=== PATIENT | male | born 1950 | race Caucasian/White ===

== ENCOUNTER 2022-11-28 11:54 | Outpatient (OUT) | payer MEDICARE, SELFPAY ==
[2022-11-28 13:23] LABS: Prostate Specific Antigen Dx 3.07 ng/mL (<=4.00)
[2022-11-29 04:08] LABS: Testosterone 272 ng/dL (264-916)
== END 2022-11-28 11:55 | disposition home or self-care (01) ==
LOC: LAB 11:54
PROVIDERS: PCP Internal Medicine; Visit Provider Urology
DX: N40.1 Benign prostatic hyperplasia with lower urinary tract symptoms (principal); E29.1 Testicular hypofunction; N52.9 Male erectile dysfunction, unspecified
CPT/HCPCS: 36415; 84153; 84403

== ENCOUNTER 2023-10-02 10:21 | Outpatient (OUT) | payer MEDICARE, SELFPAY ==
[2023-10-02 10:40] LABS: Basophils Percent Auto 0.6 % (0.2-2.0); Eosinophils Absolute Auto 0.1 10^3/uL (0.0-0.7); Hematocrit 47.1 % (42.0-54.0); Hemoglobin 16.1 g/dL (14.0-18.0); Immature Granulocytes Abs Auto 0.01 10^3/uL (0.00-0.03); Immature Granulocytes Pct Auto 0.2 % (0.0-0.5); Lymphocytes Absolute Auto 1.8 10^3/uL (1.2-3.8); Lymphocytes Percent Auto 27.2 % (20.5-60.0); Mean Corpuscular HGB Conc 34.2 g/dL (29.9-35.2); Mean Corpuscular Hemoglobin 29.9 pg (25.9-34.0); Mean Corpuscular Volume 87.4 fL (80.0-94.0); Mean Platelet Volume 9.1 fL (9.5-13.5); Monocytes Absolute Auto 0.6 10^3/uL (0.3-0.8); Monocytes Percent Auto 8.5 % (1.7-12.0); Neutrophils Percent Auto 61.5 % (43.0-75.0); Platelet Count 232 10^3/uL (150-450); Red Blood Count 5.39 10^6/uL (4.70-6.10); Red Cell Distribution Width 13.1 % (11.0-15.0); White Blood Count 6.5 10^3/uL (4.0-11.0)
[2023-10-02 11:12] LABS: Microalbumin Urine Random 3.5 mg/dL (<=30.0)
[2023-10-02 11:15] LABS: Alanine Aminotransferase 52 U/L (16-63); Albumin Level 3.9 g/dL (3.4-5.0); Alkaline Phosphatase 69 U/L (46-116); Anion Gap 12.1; Aspartate Amino Transferase 31 U/L (15-37); Calcium 8.8 mg/dL (8.5-10.1); Carbon Dioxide 29.6 mmol/L (21.0-32.0); Chloride 102 mmol/L (98-107); Chol HDL Ratio 2.9; Cholesterol 138 mg/dL (<=200); Estimated GFR (African America >60 (>=60); Estimated GFR (Non-African Ame >60 (>=60); Globulin 3.8 g/dL; Glucose 140 mg/dL (74-106); HDL Cholesterol 48 mg/dL (40-60); LDL Cholesterol Calculated 61.4 mg/dL; Potassium 3.7 mmol/L (3.5-5.1); Sodium 140 mmol/L (136-145); Total Protein 7.7 g/dL (6.4-8.2); Triglycerides 143 mg/dL (<=150); VLDL CHOLESTEROL 28.6 mg/dL
[2023-10-02 11:28] LABS: Estimated Average Glucose 137 mg/dL; Glycohemoglobin A1C 6.4 % (4.5-6.2)
== END 2023-10-02 10:22 | disposition home or self-care (01) ==
LOC: LAB 10:21
PROVIDERS: PCP Internal Medicine; Visit Provider Internal Medicine
DX: E11.65 Type 2 diabetes mellitus with hyperglycemia (principal); I10 Essential (primary) hypertension; E78.00 Pure hypercholesterolemia, unspecified
CPT/HCPCS: 36415; 80053; 80061; 82043; 83036; 85025

== ENCOUNTER 2024-01-29 15:00 | Outpatient (OUT) | payer MEDICARE, SELFPAY ==
--- OUTSIDE RECORDS SUMMARY | 2024-01-29 15:26 | XMS_ITS | CCD ---
Author Organization [facility] CliniSyal Care Team Providers Care Driver Courier Name Role Phone DR SAL SINCLAIR Primary Care Unavailable YUKO, DR SALAZAR Admitting Unavailable CORTEZ, DR SALAZAR Attending Unavailable CORTEZ, DR SALAZAR Consulting Unavailable JR, DR GR Primary Care Unavailable JR, DR GR Admitting Unavailable JR, DR GR Attending Unavailable JR, DR GR Consulting Unavailable JR, DR GR Primary Care Unavailable JR, DR GR Admitting Unavailable BALL, DR GR Attending Unavailable BALL, DR GR Consulting Unavailable TITUS, DR JUANITO Mccollum Consulting Unavailable SAL SINCLAIR Primary Care Physician Sal Sinclair VENKATESH MALONE Admitting Unavailable VENKATESH MALONE Attending Unavailable VENKATESH MALONE Referring Unavailable SAL SINCLAIR Primary Care Unavailable HACHAITANYARVENKATESH Attending Unavailable HADHAVAL, VENKATESH Referring Unavailable JR, SAL Cooley Primary Care Unavailable Wyatt CORTEZ Attending Unavailable Wyatt CORTEZ Attending Unavailable Allergies Allergy Classification Reported Allergen(s) Allergy Type Date of Onset Reaction(s) Facility (1 source) No Known Medication Allergies; Translations: [No Known Medication Allergies] Propensity to adverse reactions (disorder) [facility] Repository Medications Current Medications Medication Drug Class(es) Dates Sig (Normalized) Sig (Original) amLODIPine 10 mg / benazepril hydrochloride 40 mg oral capsule (6 sources) Dihydropyridine Calcium Channel Annika, Angiotensin Converting Enzyme Inhibitor Start: 10-02-2023 take 1 capsule by mouth once daily Amlodipine-Benaz epril Active 1 CAP PO Daily October 02, 2023 9:48am Start: 06-23-2023 End: 10-02-2023 take 1 capsule by mouth once daily Amlodipine-Benazepril Discontinued 0 .ROUTE .COMPLEX 90 June 23, 2023 1:24pm October 02, 2023 9:49am TAKE 1 CAPSULE BY MOUTH EVERY DAY Start: 06-23-2023 End: 06-23-2023 take 1 capsule by mouth once daily Amlodipine-Benazepril Discontinued 1 CAP PO Daily June 23, 2023 12:00am June 23, 2023 1:24pm Start: 12-11-2020 take 1 capsule by mo nhh once daily amLODIPine-benazepril 10mg-40 mg Cap cap(s), Oral, Daily, Refill(s) 0 Start Date: 12/11/20 Status: Ordered aspirin 81 mg delayed release oral tablet (3 sources) Platelet Aggregation Inhibitor, Nonsteroidal Anti-inflammatory Drug Start: 10-02-2023 take 81 mg by mouth once daily Aspirin Active 81 MG PO Daily October 02, 2023 12:00am Start: 03-05-2019 take 1 mg by mouth once daily aspirin 81 mg oral tablet mg tab(s), Oral, Daily, Refills(s) 0 Start Date: 03/05/19 Status: Ordered atorvastatin 10 mg oral tablet (4 sources) HMG-CoA Reductase Inhibitor Start: 07-08-2023 take 10 mg by mouth once daily Atorvastatin Active 10 MG PO Daily July 08, 2023 12:00am Start: 03-05-2019 take 10 mg by mouth once daily atorvastatin 10 mg, Oral, Daily, Refills(s) 0 Start Date: 03/05/19 Status: Ordered hydroCHLOROthiazide 25 mg oral tablet (4 sources) Thiazide Diuretic Start: 07-08-2023 take 25 mg by mouth once daily Hydrochlorothiazide Active 25 MG PO Daily July 08, 2023 12:00am Start: 12-06-2019 take 1 mg by mouth o nce daily hydrochlorothiazide 25 mg Tab mg tab(s), Oral, Daily, Refills(s) 0 Start Date: 12/06/19 Status: Ordered ketoconazole 20 mg/ml medicated shampoo (2 sources) Azole Antifungal Start: 10-02-2023 End: 10-02-2023 Ketoconazole Active 1 APPLIC TOPICAL 3 Times a week 120 October 02, 2023 10:11am metFORMIN hydrochloride 500 mg oral tablet (5 sources) Biguanide Start: 07-08-2023 take 1 tablet by mouth once daily Metformin Active 0 .ROUTE .COMPLEX 90 July 08, 2023 6:04pm TAKE 1 TABLET BY MOUTH EVERY DAY Start: 07-08-2023 End: 07-08-2023 take 500 mg by mouth once daily Metformin Discontinued 500 MG PO Daily July 08, 2023 12:00am July 08, 2023 6:05pm Start: 03-05-2019 metformin 500 mg, Oral, Refills(s) 0 Start Date: 03/05/19 Status: Ordered Completed/Discontinued Medications Medication Drug Class(es) Dates Sig (Normalized) Sig (Original) latanoprost 0.05 mg/ml ophthalmic solution (1 source) Prostaglandin Analog Start: 10-02-2023 End: 10-02-2023 take 1 drop(s) into the eye(s) once daily Latanoprost Discontinued 1 DROPS EYE-BOTH Daily October 02, 2023 12:00am October 02, 2023 9:49am predniSONE 20 mg oral tablet (2 sources) Start: 07-08-2023 End: 10-02-2023 Prednisone Discontinued 20 MG PO July 08, 2023 12:00am October 02, 2023 9:48am 1 tablet Orally tid w/ food x 3 days, then bid w/ food x 3 days, then qd w/ food x 3 days Start: 09-06-2022 predniSONE 20 MG 1 tablet Orally tid w/ food x 3 days, then bid w/ food x 3 days, then qd w/ food x 3 days for 9 days August, Active sildenafil 20 mg oral tablet (2 sources) Phosphodiesterase 5 Inhibitor Start: 02-10-2023 sildenafil 20 mg ora l tablet 20 mg = 1 tab(s), Oral, As Directed, Take 3-5 tablets by mouth prior to sexual relations, # 90 cap(s), Refills(s) 3, Pharmacy: [id number], 178, cm, 02/10/23 12:36:00 EDT, Height/Length Dosing, 143, kg, 02/10/23 12:36:00 EDT, Weight Dosing Start Date: 02/10/23 Status: Ordered Start: 12-21-2021 sildenafil 20 mg oral tablet 20 mg = 1 tab(s), Oral, As Directed, Take 3-5 tablets by mouth prior to sexual relations, # 90 cap(s), Refills(s) 3, Pharmacy: [id number] Start Date: 12/21/21 Status: Ordered Problems Active Problems Problem Classification Problem Date Documented Date Episodic/Chronic Allergic reactions (1 source) Allergic contact dermatitis due to plants, except food; Translations: [Poison edgardo] Episodic Blindness and vision defects (5 sources) Other visual disturbances; Translations: [Visual disturbance] Onset: 11-01-2021 Episodic Diabetes mellitus with complications (11 sources) Type 2 diabetes mellitus with hyperglycemia; Translations: [Type 2 diabetes mellitus] Onset: 12-28-2020 Chronic Diabetes mellitus without complication (2 sources) Diabetes mellitus 03-05-2019 Chronic Disorders of lipid metabolism (5 sources) Pure hypercholesterolemia , unspecified; Translations: [Pure hypercholesterolemia ] Onset: 01-13-2021 Chronic Essential hypertension (7 sources) Essential (primary) hypertension; Translations: [Hypertensive disorder] Onset: 01-13-2021 03-05-2019 Chronic Genitourinary symptoms and ill-defined conditions (2 sources) Nocturia 03-15-2019 Episodic Headache; including migraine (1 source) Headache; including migraine; Translations: [HEADACHE UNSPECIFIED] Onset: 11-06-2021 Hyperplasia of prostate (8 sources) Benign prostatic hyperplasia with lower urinary tract symptoms; Translations: [Benign prostatic hypertrophy with outflow obstruction] Onset: 12-12-2021 Chronic Inflammatory conditions of male genital organs (2 sources) Chronic prostatitis 03-15-2019 Chronic Mycoses (1 source) Candidiasis of skin and nails; Translations: [Candidiasis of skin and nail] Episodic Other aftercare (2 sources) Other watermaster (current) drug therapy; Translations: [OTH CUSTODIAL CURRENT DRUG THERAPY] Onset: 01-13-2021 Episodic Other and unspecified benign neoplasm (1 source) Polyp of colon; Translations: [Polyp of colon] Onset: 09-16-2023 Episodic Other and unspecified benign neoplasm (1 source) Tubular adenoma Onset: 09-16-2023 Episodic Other diseases of veins and lymphatics (1 source) Peripheral venous insufficiency; Translations: [Venous insufficiency (chronic) (peripheral)] Episodic Other diseases of veins and lymphatics (2 sources) Venous insufficiency (chronic) (peripheral); Translations: [Venous (peripheral) insufficiency, unspecified] Episodic Other diseases of veins and lymphatics (1 source) Venous insufficiency of leg; Translations: [Venous insufficiency (chronic) (peripheral)] 09-30-2023 Episodic Other endocrine disorders (1 source) Testicular hypofunction; Translations: [TESTICULAR HYPOFUNCTION] Onset: 12-13-2021 Chronic Other endocrine disorders (2 sources) Testicular hypofunction; Translations: [Testicular hypofunction] Onset: 12-21-2021 Chronic Other endocrine disorders (2 sources) Male hypogonadism 03-15-2019 Chronic Other male genital disorders (3 sources) Male erectile dysfunction, unspecified; Translations: [Erectile dysfunction] Onset: 12-13-2021 Chronic Other male genital disorders (2 sources) Impotence 12-06-2019 Chronic Other nervous system disorders (2 sources) Unsteadiness on feet; Translations: [Unsteady] Onset: 11-06-2021 Episodic Other nutritional; endocrine; and metabolic disorders (1 source) Body mass index 40+ - severely obese; Translations: [Body mass index (BMI) 40.0-44.9, adult] Chronic Other nutritional; endocrine; and metabolic disorders (1 source) Severe obesity; Translations: [Morbid (severe) obesity due to excess calories] Chronic Other nutritional; endocrine; and metabolic disorders (1 source) Morbid (severe) obesity due to excess calories Chronic Other nutritional; endocrine; and metabolic disorders (1 source) Body mass index (BMI) 40.0-44.9, adult Chronic Other screening for suspected conditions (not mental disorders or infectious disease) (2 sources) Encounter for screening for malignant neoplasm of colon; Translations: [Encounter for screening for malignant neoplasm of prostate] Episodic Unclassified (2 sources) Drug therapy finding 03-05-2019 Past or Other Problems Problem Classification Problem Date Documented Da te Episodic/Chronic Unclassified (1 source) Acute headache; Translations: [Acute nonintractable headache, unspecified headache type] Results Test Name Value Interpretation Reference Range Facility Surgical Pathologyon 024 Surgical Pathology Normal [facility] Comment on above: Result Comment: [facility] [address] [place] [address] Surgical Pathology Consultation Patient Name:DOMINGO SANTOSB:1950 (Age: 73)Gender:MTaken:4Reported:4Physician(s):Celsa Malone MD ([phone])Copy To:[facility] CenterAccession #:[id number]. Rec. #:[id number]: #[id number] Final Pathologic Diagnosis 1. Colon, cecum, polypectomy: Fragments of tubular adenoma. 2. Ascending colon, polypectomy: Fragments of tubular adenoma. 3. Transverse colon, polypectomy: Fragments of tubular adenoma. 4. Descending colon, polypectomy: Tubular adenoma. Report Electronically Signed Out rg/4Rmariusz Ramos MD [place] [address], License number: [id number]. Clinical History Tubular adenoma. Gross Description 1. Received in formalin labeled WINTHROP, #1: Cecal polyp site are multiple crockett bits/strips of soft tissue, ranging from 0.1-0.8 cm in greatest dimension. Filtered and submitted in a single cassette. (1, ns, [id number], m4) MG 2. Received in formalin labeled WINTHROP, #2: Ascending colon polyp are 2 crockett bits of soft tissue, each 0.4 cm in greatest dimension. Filtered and submitted in a single cassette. (1, ns, [id number], m4) MG 3. Received in formalin labeled WINTHROP, #3: Transverse colon polyps are multiple crockett bits of soft tissue, ranging from 0.1-0.4 cm in greatest dimension. Filtered and submitted in a single cassette. (1, ns, [id number], m4) MG 4. Received in formalin labeled WINTHROP, #4: Descending colon polyps are 3 crockett bits of soft tissue, ranging from 0.2-0.5 cm in greatest dimension. Filtered and submitted in a single cassette. (1, ns, [id number], m4) MG mjg/09/16/2023O Specimen(s) Received 1: cecal polyp 2: Ascending colon polyp 3: Transverse colon polyp 4: Desending colon polyp Fee Codes(s): 1; 30667 2; 89615 3; 68735 4; 86096 Ambulatory Visit Summaryon 1 Ambulatory Visit Summary ELVIS SANTOS :1950 Visit Date:02/10/2023 Ambulatory Visit Instructions Your Diagnosis BPH with urinary obstruction Hypogonadism male Impotence Tests Performed Urnls Dip Stick Auto w/o Microscopy POC 97114 Your Care Team Attending Physician - YUKO MYERS, Wyatt Crespo Primary Care Physician - SAL SINCLAIR DO This Is Your Medications List sildenafil (sildenafil 20 mg oral tablet) Contact prescribing physician if questions or concerns amlodipine-benazepr il (amLODIPine-benazep ril 10mg-40 mg Cap) aspirin (aspirin 81 mg oral tablet) atorvastatin hydrochlorothiazide (hydrochlorothiazid e 25 mg Tab) metformin Procedures Performed Transrectal biopsy of prostate using ultrasound (US) guidance (10/01/2010), Transrectal biopsy of prostate using ultrasound (US) guidance (11/11/2008), Arthroscopy of knee (08/2007), Arthroscopy of knee (10/2006). Discharge Vitals Heart Rate (Peripheral) 73 Respiratory Rate 16 Blood Pressure 139/80 Height 178 cm Height 70 in Weight 143 kg Weight 314.6 lb BMI 45.13 What to do next Scheduled Follow-Up Appointments Friday 10:15 AM EDT With: YUKO MYERS, Wyatt Crespo Where: [facility] Patient Educationon 02-10- 23 Patient Education Urology Erectile Dysfunction Erectile dysfunction (ED) is the inability to get or keep an erection in order to have sexual intercourse. ED is considered a symptom of an underlying disorder and is not considered a disease. ED may include: ? Inability to get an erection. ? Lack of enough hardness of the erection to allow penetration. ? Loss of erection before sex is finished. What are the causes? This condition may be caused by: ? Physical causes, such as: ? Artery problems. This may include heart disease, high blood pressure, atherosclerosis, and diabetes. ? Hormonal problems, such as low testosterone. ? Obesity. ? Nerve problems. This may include back or pelvic injuries, multiple sclerosis, Parkinson's disease, spinal cord injury, and stroke. ? Certain medicines, such as: ? Pain relievers. ? Antidepressants. ? Blood pressure medicines and water pills (diuretics). ? Cancer medicines. ? Antihistamines. ? Muscle relaxants. ? Lifestyle factors, such as: ? Use of drugs such as marijuana, cocaine, or opioids. ? Excessive use of alcohol. ? Smoking. ? Lack of physical activity or exercise. ? Psychological causes, such as: ? Anxiety or stress. ? Sadness or depression. ? Exhaustion. ? Fear about sexual performance. ? Guilt. What are the signs or symptoms? Symptoms of this condition include: ? Inability to get an erection. ? Lack of enough hardness of the erection to allow penetration. ? Loss of the erection before sex is finished. ? Sometimes having normal erections, but with frequent unsatisfactory episodes. ? Low sexual satisfaction in either partner due to erection problems. ? A curved penis occurring with erection. The curve may cause pain, or the penis may be too curved to allow for intercourse. ? Never having nighttime or morning erections. How is this diagnosed? This condition is often diagnosed by: ? Performing a physical exam to find other diseases or specific problems with the penis. ? Asking you detailed questions about the problem. ? Doing tests, such as: ? Blood tests to check for diabetes mellitus or high cholesterol, or to measure hormone levels. ? Other tests to check for underlying health conditions. ? An ultrasound exam to check for scarring. ? A test to check blood flow to the penis. ? Doing a sleep study at home to measure nighttime erections. How is this treated? This condition may be treated by: ? Medicines, such as: ? Medicine taken by mouth to help you achieve an erection (oral medicine). ? Hormone replacement therapy to replace low testosterone levels. ? Medicine that is injected into the penis. Your health care provider may instruct you how to give yourself these injections at home. ? Medicine that is delivered with a short applicator tube. The tube is inserted into the opening at the tip of the penis, which is the opening of the urethra. A tiny pellet of medicine is put in the urethra. The pellet dissolves and enhances erectile function. This is also called MUSE (medicated urethral system for erections) therapy. ? Vacuum pump. This is a pump with a ring on it. The pump and ring are placed on the penis and used to create pressure that helps the penis become erect. ? Penile implant surgery. In this procedure, you may receive: ? An inflatable implant. This consists of cylinders, a pump, and a reservoir. The cylinders can be inflated with a fluid that helps to create an erection, and they can be deflated after intercourse. ? A semi-rigid implant. This consists of two silicone rubber rods. The rods provide some rigidity. They are also flexible, so the penis can both curve downward in its normal position and become straight for sexual intercourse. ? Blood vessel surgery to improve blood flow to the penis. During this procedure, a blood vessel from a different part of the body is placed into the penis to allow blood to flow around (bypass) damaged or blocked blood vessels. ? Lifestyle changes, such as exercising more, losing weight, and quitting smoking. Follow these instructions at home: Medicines ? Take [id number]-ptiwvqp and prescription medicines only as told by your health care provider. Do not increase the dosage without first discussing it with your health care provider. ? If you are using self-injections, do injections as directed by your health care provider. Make sure you avoid any veins that are on the surface of the penis. After giving an injection, apply pressure to the injection site for 5 minutes. ? Talk to your health care provider about how to prevent headaches while taking ED medicines. These medicines may cause a sudden headache due to the increase in blood flow in your body. General instructions ? Exercise regularly, as directed by your health care provider. Work with your health care provider to lose weight, if needed. ? Do not use any products that contain nicotine or tobacco. These products include cig (more content not included)... Normal [facility] Urology Office/Clinic Noteon 02-10-2023 Urology Office/Clinic Note Chief Complaint 1yr PSA & Testosterone HPI Staff 72 yo male here for 1 yr f/u with PSA and T levels. Previous Dx: BPH with obstruction, hypogonadism, impotence. S/p TRUS/bx 10/01/10 and 11/11/08. Previous PSA 12/12/21 was 2.74. Current PSA 11/28/22 is 3.07. Previous T level 12/12/21 was 367 (284-916). Current T level 11/28/22 is 272 (264-916). Taking Sildenafil 20mg 3 tabs prn. Still doing 3 tabs Sildenafil. Working well. Denies all urinary concerns at this time. History of Present Illness Tests reviewed: reviewed UA, PSA, T level I have reviewed the previous health record information and history for this patient from Dr. Cortez. I have reviewed and verified the staff HPI to be accurate for this encounter. Review of Systems PHQ Score Initial Depression Screen Score: 0 ROS - Provider Constitutional: denies weight loss, denies hot flashes. Eyes: denies eye problems. Gastrointestinal: denies nausea, denies vomiting. Cardiovascular: denies chest pain or angina. Integumentary: no dryness Musculoskeletal: denies musculoskeletal symptoms. ENMT: denies otolaryngeal symptoms. Respiratory: no shortness of breath. Heme/Lymph: denies easy bleeding tendency, denies easy bruising tendency. Psychiatric: no confusion, no anxiety. Genitourinary: See HPI. Physical Exam Vitals & Measurements HR: 73(Peripheral) RR: 16 BP: 139/80 HT: 70 in HT: 178 cm WT: 143 kg WT: 314.6 lb BMI: 45.13 General Appearance: alert, no distress, well nourished, well developed male. Genitourinary: normal scrotum, normal testes, normal urethra, normal epididymis, normal vas deferens/spermatic cord. Flank Pain: none. Bladder: nonpalpable. Prostate: normal prostate, estimated weight 40 gms, no hard nodule observed. Assessment/Plan 1. BPH with urinary obstruction (N40.1: Benign prostatic hyperplasia with lower urinary tract symptoms) S/P TRUS/Bx 2008 and 2010. PSA 11/24/18 - 2.35 11/25/19 - 2.26 11/30/20 - 3.41 12/12/21 - 2.74 11/28/22 - 3.07 Discussed recent PSA level which has increased slightly since prior. Has had a higher PSA level in the past. Will continue to monitor. Not currently taking any BPH meds. UA today negative for blood and infection. Good stream. Feels he empties completely. Denies any bothersome urinary sxs at this time. Follow up with PSA and T level in 1 yr or sooner if needed. All questions/concerns were discussed. Pt to call the office if he encounters any issues prior. Pt acknowledges understanding. 2. Hypogonadism male (E29.1: Testicular hypofunction) Testosterone Levels (range 284-916): 11/30/20 - 510 12/12/21 - 367 11/28/22 - 272 No longer using Androgel. Discussed recent T level which is low normal. steady decrease in T over the last few years. Denies decreased sex drive. Will continue to monitor T level. 3. Impotence (N52.9: Male erectile dysfunction, unspecified) Taking Sildenafil 20mg PRN, three at a time. Works well. Refill sent today. Cont med wo changes. Follow-up With When Contact Information YUKO MYERS, Wyatt Crespo, [facility] [address], [place] [address]- [phone] Additional Instructions: 1 yr w/ PSA and T levels Patient Education Erectile Dysfunction I, Haley Joe, personally scribed for Dr. Cortez on 02/10/2023 13:14:14. . Documentation recorded by the scribe, Haley Joe, accurately reflects the services(s) I performed and decisions made by me. Authenticated by Dr. Cortez on 02/10/2023 13:17:04. Problem List/Past Medical History Ongoing Anticoagulated BPH with urinary obstruction Chronic prostatitis Diabetes mellitus Hypertension Hypogonadism male Impotence Nocturia Historical No qualifying data Procedure/Surgical History Transrectal biopsy of prostate using ultrasound (US) guidance (10/01/2010), Transrectal biopsy of prostate using ultrasound (US) guidance (11/11/2008), Arthroscopy of knee (08/2007), Arthroscopy of knee (10/2006). Medications amLODIPine-benazepr il 10mg-40 mg Cap, Oral, Daily aspirin 81 mg oral tablet, Oral, Daily atorvastatin, 10 mg, Oral, Daily hydrochlorothiazide 25 mg Tab, Oral, Daily metformin, 500 mg, Oral sildenafil 20 mg oral tablet, 20 mg= 1 tab(s), Oral, As Directed, 3 refills Allergies No Known Medication Allergies Social History Alcohol 1-2 times per month, 03/05/2019 Tobacco Never (less than 100 in lifetime) Tobacco Use:. Never Smokeless Tobacco Use:. Household tobacco concerns: No. Yes, 02/10/2023 Family History COPD: Mother. Cancer of mandible: Father. Primary malignant neoplasm of colon: Father. Primary malignant neoplasm of lung: Mother and Brother. Prostate cancer: Uncle. Immunizations Vaccine Date Status SARS-CoV-2 (COVID-19) Ad26 vaccine 06/16/2020 Recorded SARS-CoV-2 (COVID-19) Ad26 vaccine 05/26/2020 Recorded pneumococcal 23-valent vaccine 02/28/2020 Recorded Lab Results Ambulatory Point o (more content not included)... Normal [facility] Comment on above: Result Comment: Elec tronically Signed By: Wyatt CORTEZ MD\.br\Date and Time Signed: 02/10/23 13:17 EDT\.br\Electronically Co-Signed By: Haley Joe\.br\Date and Time Co-Signed: 02/10/23 13:15 EDT A1C with Estimated Average G luon 08-29-2022 A1C with Estimated Average Glu [facility] [employer] Other Alanine Aminotransferaseon 0 08-29-2022 ALT [Catalytic activity/Vol] 46 U/L 16-63 U/L [employer] [employer] Other Basic Metabolic Panelon 08-12 Anion gap [Moles/Vol] 11.9 mmol/L No rt [employer] Other Calcium [Mass/Vol] 8.8696974 mg/dL 8.5-10 .1 mg/dL [employer] Other Chloride [Moles/Vol] 104 mmol/L 98-107 mmol/L N [facility] [employer] Other CO2 [Moles/Vol] 31.90797921 mmol/L 21.0-3 2.0 mmol/L [employer] Other Creatinine [Mass/Vol] 0.04938580 mg/dL 0. 70-1.30 mg/dL [employer] Other Potassium [Moles/Vol] 3.85928453 mmol/L 3 .5-5.1 mmol/L [employer] Other Urea nitrogen [Mass/Vol] 18.1803884 mg/dL 7.0-18.0 mg/dL [employer] Other Urea nitrogen/Creatinine [Mass ratio] 20.7 mg/mg [employer] Other Basic Metabolic Panel see note [facility] [employer] Other Basic Metabolic Panel 144 mmol/L 136-14 5 mmol/L [employer] Other Basic Metabolic Panel 121 mg/dL Critically high 74-106 mg /dL [employer] Other Basic Metabolic Panel >60 mL/min/1.73m2 > =60 mL/min/1.73m2 [employer] Other Complete Blood Count and Dif tarah 08-29-2022 Anisocytosis Ql (Bld) [employer] Other Basophilic stippling LM Ql (Bld) [place] [employer] Other RBC morphology finding Nom (Bld) [place] [employer] Other Lipid Panelon 08-29-2022 Cholesterol [Mass/Vol] 119 mg/dL <=200 mg/dL N [facility] [employer] Other Cholesterol in HDL [Mass/Vol] 42 mg/dL 40-60 mg/dL [place] [employer] Other Cholesterol.total/Chol esterol in HDL [Mass ratio] 2.8 {ratio} [employer] Other Triglyceride [Mass/Vol] 96 mg/dL <=150 mg/dL [employer] Other Lipid Panel > or = 60 mg/dl - LOW CARDIOVASCULAR RISK <40 mg/dl - HIGH CARDIOVASCULAR RISK [employer] Other Lipid Panel SEE BELOW [employer] Other Lipid Panel 57.8 mg/dL [employer] Other Lipid Panel 19.2 mg/dL [employer] Other TESTOSTERONE, TOTALon 2021 Testosterone [Mass/Vol] 367 ng/dL Normal 264-916 [facility] Comment on above: Result Comment: Adul t male reference interval is based on a population of healthy nonobese males (BMI <30) between 19 and 39 years old. Amanda et.al. JCEM 2017,102;3198-6366. PMID: [id number]. Performed By: #### T ESTTOT #### [facility] [address] [place] [address] Dr. Yanely Damian MRI BRAIN WO CONon 2 MRI BRAIN WO CON EXAMINATION: MRI BRAIN WO CON, 11/01/2021 12:35 PM EDT HISTORY: General unsteadiness COMPARISON: None. TECHNIQUE: MRI of the brain was performed without IV contrast. FINDINGS: CEREBRUM: No edema, hemorrhage, mass, acute infarction, or inappropriate atrophy. Mild scattered hyperintense foci are present, typical for a patient of this age, most commonly caused by small vessel ischemic changes. CEREBELLUM: No edema, hemorrhage, mass, acute infarction, or inappropriate atrophy. BRAINSTEM: No edema, hemorrhage, mass, acute infarction, or inappropriate atrophy. CSF SPACES: Ventricles, cisterns, and sulci are appropriate for age. No hydrocephalus, subarachnoid hemorrhage, or mass. SKULL: No mass or other significant visible lesion. SINUSES: Minimal opacification anterior left ethmoid cellules ORBITS: Limited views are unremarkable. OTHER: Negative. IMPRESSION: Mild white matter signal abnormality. Chronic small vessel ischemic changes are favored Electronically authenticated by: JUANITO QURESHI Date: 2021-11-01 14:12 Normal [facility] CBC AUTO DIFFon 12-28-2020 BASO # 0.1 103/ul Normal 0.0-0.1 [facility] Comment on above: Performed By: #### C BC #### [facility] [address] [place] [address] Dr. Yanely Damian Basophils/100 WBC (Bld) 0.8 % Normal 0.2-2.0 [facility] Comment on above: Performed By: #### C BC #### [facility] [address] [place] [address] Dr. Yanely Damian EO # 0.3 103/ul Normal 0.0-0.7 [facility] Comment on above: Performed By: #### C BC #### [facility] [address] [place] [address] Dr. Yanely Damian Eosinophils/100 WBC (Bld) 4.6 % Normal 0.9-7.0 [facility] Comment on above: Performed By: #### C BC #### [facility] [address] [place] [address] Dr. Yanely Damian Erythrocyte distribution width (RBC) [Ratio] 13.7 % Normal 11.0-15.0 [facility] Comment on above: Performed By: #### C BC #### [facility] [address] [place] [address] Dr. Yanely Damian Hematocrit (Bld) [Volume fraction] 48.2 % Normal 42.0-54.0 [facility] Comment on above: Performed By: #### C BC #### [facility] [address] [place] [address] Dr. Yanely Damian Hemoglobin (Bld) [Mass/Vol] 16.0 g/dL Normal 14.0-18.0 [facility] Comment on above: Performed By: #### C BC #### [facility] [address] [place] [address] Dr. Yanely Damian IG # 0.02 10e3/ul Normal 0.00-0.03 [facility] Comment on above: Performed By: #### C BC #### [facility] [address] [place] [address] Dr. Yanely Damian IG % 0.3 % Normal 0.0-0.5 [facility] Comment on above: Performed By: #### C BC #### [facility] [address] [place] [address] Dr. Yanely Damian LYMPH # 1.6 103/ul Normal 1.2-3.8 [facility] Comment on above: Performed By: #### C BC #### [facility] [address] [place] [address] Dr. Yanely Damian Lymphocytes/100 WBC (Bld) 24.5 % Normal 20.5-60.0 [facility] Comment on above: Performed By: #### C BC #### [facility] [address] [place] [address] Dr. Yanely Damian MANUAL DIFF REQ NO Normal [facility] Comment on above: Performed By: #### C BC #### [facility] [address] [place] [address] Dr. Yanely Damian MCH (RBC) [Entitic mass] 29.7 pg Normal 25.9-34.0 [facility] Comment on above: Performed By: #### C BC #### [facility] [address] [place] [address] Dr. Yanely Damian MCHC (RBC) [Mass/Vol] 33.2 g/dL Normal 29.9-35.2 [facility] Comment on above: Performed By: #### C BC #### [facility] [address] [place] [address] Dr. Yanely Damian MCV (RBC) [Entitic vol] 89.6 fL Normal 80.0-94.0 [facility] Comment on above: Performed By: #### C BC #### [facility] [address] [place] [address] Dr. Yanely Damian MONO # 0.8 103/ul Normal 0.3-0.8 [facility] Comment on above: Performed By: #### C BC #### [facility] [address] [place] [address] Dr. Yanely Damian Monocytes/100 WBC (Bld) 11.5 % Normal 1.7-12.0 [facility] Comment on above: Performed By: #### C BC #### [facility] [address] [place] [address] Dr. Yanely Damian NEUT # 3.8 103/ul Normal 1.4-6.5 [facility] Comment on above: Performed By: #### C BC #### [facility] [address] [place] [address] Dr. Yanely Damian Neutrophils/100 WBC (Bld) 58.3 % Normal 43.0-75.0 [facility] Comment on above: Performed By: #### C BC #### [facility] [address] [place] [address] Dr. Yanely Damian Platelet mean volume (Bld) [Entitic vol] 9.0 fL Critically low 9.5-13.5 [facility] Comment on above: Performed By: #### C BC #### [facility] [address] [place] [address] Dr. Yanely Damian PLT 235 103/ul Normal 150-450 [facility] Comment on above: Performed By: #### C BC #### [facility] [address] [place] [address] Dr. Yanely Damian RBC 5.38 106/ul Normal 4.70-6.10 [facility] Comment on above: Performed By: #### C BC #### [facility] [address] [place] [address] Dr. Yanely Damian WBC 6.5 103/ul Normal 4.0-11.0 [facility] Comment on above: Performed By: #### C BC #### [facility] [address] [place] [address] Dr. Yanely Damian GLYCOHEMOGLOBIN A1Con 2020 ADA RECOMMENDATION ADA THERAPEUTIC TARGET 6.0 - 7.0 ACTION SUGGESTED > 7.0 Normal [facility] Comment on above: Performed By: #### A 1C #### [facility] [address] [place] [address] Dr. Yanely Damian Glucose [Mass/Vol] 117 mg/dL Normal [facility] Comment on above: Performed By: #### A 1C #### [facility] [address] [place] [address] Dr. Yanely Damian HbA1c (Bld) [Mass fraction] 5.7 % Normal <=6.0 [facility] Comment on above: Performed By: #### A 1C #### [facility] [address] [place] [address] Dr. Yanely Damian LIPID PROFILEon 12-28-2020 CHOL-HDL RATIO NORM SEE BELOW Normal [facility] Comment on above: Result Comment: 3.3 - 4.4 LOW RISK 4.4 - 7.1 AVERAGE RISK 7.1 - 11.0 MODERATE RISK >11.0 HIGH RISK Performed By: #### L IPID, CMP #### [facility] [address] [place] [address] Dr. Yanely Damian Cholesterol [Mass/Vol] 138 mg/dL Normal <=[address] [facility] Comment on above: Performed By: #### L IPID, CMP #### [facility] [address] [address] [address] Yanely Damian Cholesterol in HDL [Mass/Vol] 46 mg/dL Normal [facility] Comment on above: Performed By: #### L IPID, CMP #### [facility] [address] [address] [address] Yanely Damian Cholesterol in LDL [Mass/Vol] 56.6 mg/dL Normal [facility] Comment on above: Performed By: #### L IPID, CMP #### [facility] [address] [address] [address] Yanely Damian Cholesterol.total/Chol esterol in HDL [Mass ratio] 3.0 {ratio} Normal [facility] Comment on above: Performed By: #### L IPID, CMP #### [facility] [address] [address] [address] Yanely Damian HDL NORMAL > or = 60 mg/dl - LOW CARDIOVASCULAR RISK <40 mg/dl - HIGH CARDIOVASCULAR RISK Normal [facility] Comment on above: Performed By: #### L IPID, CMP #### [facility] [address] [address] [address] Yanely Damian LDL CALC NORMAL SEE BELOW Normal [facility] Comment on above: Result Comment: <100 mg/dl OPTIMAL 100 - 129 mg/dl NEAR OR ABOVE OPTIMAL 130 - 159 mg/dl BORDERLINE HIGH 160 - 189 mg/dl HIGH >190 mg/dl VERY HIGH Performed By: #### L IPID, CMP #### [facility] [address] [address] [address] Yanely Damian Triglyceride [Mass/Vol] 177 mg/dL Critically high <=150 [facility] Comment on above: Performed By: #### L IPID, CMP #### [facility] [address] [place] [address] Dr. Yanely Damian VLDL CALC 35.4 mg/dL Normal [facility] Comment on above: Performed By: #### L IPID, CMP #### [facility] [address] [address] [address] Yanely Damian MICROALBUMIN, RAND URon 12-13 mALB 2.4 mg/L Normal <=30.0 [facility] Comment on above: Performed By: #### M ALBR #### [facility] [address] [address] [address] Yanely Damian PROF 14(COMP METB)on 021 Albumin [Mass/Vol] 4.0 g/dL Normal 3.5-5.0 [facility] Comment on above: Performed By: #### L IPID, CMP #### [facility] [address] [address] [address] Yanely Damian Albumin/Globulin [Mass ratio] 1.0 {ratio} Normal [facility] Comment on above: Performed By: #### L IPID, CMP #### [facility] [address] [place] [address] Dr. Yanely Damian ALP [Catalytic activity/Vol] 72 U/L Normal 38-126 [facility] Comment on above: Performed By: #### L IPID, CMP #### [facility] [address] [place] [address] Dr. Yanely Damian ALT [Catalytic activity/Vol] 24 U/L Normal 21-72 [facility] Comment on above: Performed By: #### L IPID, CMP #### [facility] [address] [place] [address] Dr. Yanely Damian Anion gap [Moles/Vol] 13.5 mmol/L Normal [facility] Comment on above: Performed By: #### L IPID, CMP #### [facility] [address] [address] [address] Yanely Damian AST [Catalytic activity/Vol] 16 U/L Critically low 17-59 [facility] Comment on above: Performed By: #### L IPID, CMP #### [facility] [address] [place] [address] Dr. Yanely Damian Bilirubin [Mass/Vol] 0.9 mg/dL Normal 0.2-1.3 [facility] Comment on above: Performed By: #### L IPID, CMP #### [facility] [address] [address] [address] Yanely Damian Calcium [Mass/Vol] 9.3 mg/dL Normal 8.4-10.2 [facility] Comment on above: Performed By: #### L IPID, CMP #### [facility] [address] [address] [address] Yanely Damian Chloride [Moles/Vol] 102 mmol/L Normal 98-107 [facility] Comment on above: Performed By: #### L IPID, CMP #### [facility] [address] [place] [address] Dr. Yanely Damian CO2 [Moles/Vol] 28.0 mmol/L Normal 22.0-30.0 [facility] Comment on above: Performed By: #### L IPID, CMP #### [facility] [address] [place] [address] Dr. Yanely Damian Creatinine [Mass/Vol] 0.87 mg/dL Normal 0.66-1.25 [facility] Comment on above: Performed By: #### L IPID, CMP #### [facility] [address] [place] [address] Dr. Yanely Damian EGFR-AF JAMAICAN >60 Normal >=60 [facility] Comment on above: Performed By: #### L IPID, CMP #### [facility] [address] [place] [address] Dr. Yanely Damian EGFR-NON AF JAMAICAN >60 Normal >=60 [facility] Comment on above: Performed By: #### L IPID, CMP #### [facility] [address] [place] [address] Dr. Yanely Damian Globulin (S) [Mass/Vol] 4.0 g/dL Normal [facility] Comment on above: Performed By: #### L IPID, CMP #### [facility] [address] [place] [address] Dr. Yanely Damian Glucose [Mass/Vol] 115 mg/dL Critically high 74-106 [facility] Comment on above: Performed By: #### L IPID, CMP #### [facility] [address] [address] [address] Yanely Damian Potassium [Moles/Vol] 3.5 mmol/L Normal 3.4-5.0 [facility] Comment on above: Performed By: #### L IPID, CMP #### [facility] [address] [place] [address] Dr. Yanely Damian Protein [Mass/Vol] 8.0 g/dL Normal 6.1-8.2 [facility] Comment on above: Performed By: #### L IPID, CMP #### [facility] [address] [address] [address] Yanely Damian Sodium [Moles/Vol] 140 mmol/L Normal 137-145 [facility] Comment on above: Performed By: #### L IPID, CMP #### [facility] [address] [place] [address] Dr. Yanely Damian Urea nitrogen [Mass/Vol] 16.0 mg/dL Normal 9.0-20.0 [facility] Comment on above: Performed By: #### L IPID, CMP #### [facility] [address] [place] [address] Dr. Yanely Damian Urea nitrogen/Creatinine [Mass ratio] 18.4 mg/mg Normal [facility] Comment on above: Performed By: #### L IPID, CMP #### [facility] [address] [place] [address] Dr. Yanely Damian Vital Signs Date Time Vital Sign Value Performing Clinician Facility 10-02-2023 09:52-0400 Body height 177.8 cm [facility] 10-02-2023 09:52-0400 Body mass index (BMI) [Ratio] 47 kg/m2 [facility] 10-02-2023 09:52-0400 Body weight 148.77 kg [facility] 10-02-2023 09:52-0400 Diastolic blood pressure 79 mm[Hg] [facility] 10-02-2023 09:52-0400 Heart rate 76 /min [facility] 10-02-2023 09:52-0400 Respiratory rate 12 /min [facility] 10-02-2023 09:52-0400 Systolic blood pressure 133 mm[Hg] [facility] 02-10-2023 12:33-0400 Blood Pressure Location Wyatt CORTEZ [facility] 02-10-2023 12:33-0400 Diastolic blood pressure 80 mm[Hg] Wyatt CORTEZ [facility] 02-10-2023 12:33-0400 Heart rate 73 /min Wyatt CORTEZ [facility] 02-10-2023 12:33-0400 Respiratory rate 16 /min Wyatt CORTEZ [facility] 02-10-2023 12:33-0400 Systolic blood pressure 139 mm[Hg] Wyatt CORTEZ [facility] 08-29-2022 09:30-0400 Body height 182.88 cm Sal Ball Other [facility] [employer] Other 08-29-2022 09:30-0400 Body mass index (BMI) [Ratio] 44.91 kg/m2 Sal Ball Other [facility] [employer] Other 08-29-2022 09:30-0400 Body weight 150.23 kg Sal Ball Other [facility] [employer] Other 08-29-2022 09:30-0400 Diastolic blood pressure 82 mm[Hg] Sal Ball Other [employer] Other 08-29-2022 09:30-0400 Respiratory rate 12 /min Sal Ball Other [facility] [employer] Other 08-29-2022 09:30-0400 Systolic blood pressure 142 mm[Hg] Sal Ball Other [employer] Other 12-21-2021 09:38-0400 Blood Pressure Location Wyatt CORTEZ [facility] 12-21-2021 09:38-0400 Diastolic blood pressure 78 mm[Hg] Wyatt CORTEZ [facility] 12-21-2021 09:38-0400 Heart rate 82 /min Wyatt CORTEZ [facility] 12-21-2021 09:38-0400 Respiratory rate 16 /min Wyatt CORTEZ [facility] 12-21-2021 09:38-0400 Systolic blood pressure 150 mm[Hg] Wyatt CORTEZ [facility] Encounters Encounter Date Encounter Type Care Provider Facility Start: 02-27-2024 ambulatory Wyatt CORTEZ Facili ty:[facility] Start: 10-02-2023 End: 10-02-[address] [facility] Work Phone: Start: 10-02-2023 End: 10-02-2023 Patient encounter procedure [facility] Physician [facility] Work Phone: Start: 09-16-2023 End: 09-17-2023 Evaluation and management of inpatient [facility] Start: 02-10-2023 End: 02-10-2023 ambulatory Wyatt CORTEZ Facility:[facility] Start: 02-10-2023 End: 02-10-2023 Patient encounter procedure Wyatt CORTEZ [facility] Start: 08-29-2022 End: 08-29-2022 ambulatory Sal Sinclair Other [employer] Other Start: 08-29-2022 Patient encounter procedure Sal PETERS [facility] Start: 12-21-2021 End: 12-21-2021 Patient encounter procedure Wyatt CORTEZ [facility] Start: 12-12-2021 End: 12-13-[address] SAL SINCLAIR Facility:[facility] Start: 11-01-2021 End: 11-02-[address] SAL SINCLAIR Facility:[facility] Start: 12-28-2020 End: 12-29-[address] SAL SINCLAIR Facility:[facility] Procedures Date Procedure Procedure Detail Performing Clinician Start: 12-12-[address] BARKLEY IN [place] Comment on above: Performed By: #### P SAD #### [facility] [address] [place] [address] Dr. Yanely Damian Start: 10-01-2010 Transrectal biopsy o f prostate using ultrasound guidance Wyatt CORTEZ Start: 11-11-2008 Transrectal biopsy o f prostate using ultrasound guidance Wyatt CORTEZ Start: 08-13-2007 Arthroscopy of knee Mayela CORTEZ Start: 10-12-2006 Arthroscopy of knee Mayela CORTEZ Plan of Treatment Date Care Activity Detail Author Comprehensive metabo lic 2000 panel - Serum or Plasma [facility] enter Microalbumin [Mass/volume] in Urine [facility] Immunizations Immunization Date Immunization Notes Care Provider Fa cility 07-23-2021 COVID-19 mRNA, Comir garth (Pfizer) [facility] 06-16-2020 SARS-CoV-2 (COVID-19 ) Ad26 vaccine, recombinant Wytat CORTEZ [facility] 05-26-2020 SARS-CoV-2 (COVID-19 ) Ad26 vaccine, recombinant Wyatt CORTEZ [facility] 02-28-2020 pneumococcal polysaccharide vaccine, 23 valent Sal Sinclair Other [facility] Payers Date Payer Category Payer Unknown [id number] 2019 Medicare [id number] 1958 Medicare [id number] 1958 Unknown [id number] 1958 Unknown [id number] 1950 Unknown [id number] 1951 Unknown [id number] 1951 Unknown [id number] 1951 Unknown [id number] 1951 Unknown [id number] 1951 Unknown [id number] 1950 Unknown [id number] Medicare [facility] Medicare Advantage [facility] [id number] Social History Date Type Detail Facility Start: 12-21-2021 End: 02-10-2023 Tobacco smoking status Never smoked tobacco (finding) [facility] Sex Assigned At Male [facility] Tobacco smoking status Never [facility] Start: 02-05-1951 Sex Assigned At Male [facility] Functional Status Date Assessment Result Facility 02-10-2023 Functional Status N/A [facility] 12-21-2021 Functional Status N/A [facility] Discharge instructions 02-10-2023 Note Date & Type Note Facility 02-10-2023 Hospital Discharg e instructions Patient Education 02/10/2023 13:09:36 Erectile Dysfunction Erectile Dysfunction Erectile dysfunction (ED) is the inability to get or keep an erection in order to have sexual intercourse. ED is considered a symptom of an underlying disorder and is not considered a disease. ED may include: Inability to get an erection. Lack of enough hardness of the erection to allow penetration. Loss of erection before sex is finished. What are the causes? This condition may be caused by: Physical causes, such as: ?Artery problems. This may include heart disease, high blood pressure, atherosclerosis, and diabetes. ?Hormonal problems, such as low testosterone. ?Obesity. ?Nerve problems. This may include back or pelvic injuries, multiple sclerosis, Parkinson's disease, spinal cord injury, and stroke. Certain medicines, such as: ?Pain relievers. ?Antidepressants. ?Blood pressure medicines and water pills (diuretics). ?Cancer medicines. ?Antihistamines. ?Muscle relaxants. Lifestyle factors, such as: ?Use of drugs such as marijuana, cocaine, or opioids. ?Excessive use of alcohol. ?Smoking. ?Lack of physical activity or exercise. Psychological causes, such as: ?Anxiety or stress. ?Sadness or depression. ?Exhaustion. ?Fear about sexual performance. ?Guilt. What are the signs or symptoms? Symptoms of this condition include: Inability to get an erection. Lack of enough hardness of the erection to allow penetration. Loss of the erection before sex is finished. Sometimes having normal erections, but with frequent unsatisfactory episodes. Low sexual satisfaction in either partner due to erection problems. A curved penis occurring with erection. The curve may cause pain, or the penis may be too curved to allow for intercourse. Never having nighttime or morning erections. How is this diagnosed? This condition is often diagnosed by: Performing a physical exam to find other diseases or specific problems with the penis. Asking you detailed questions about the problem. Doing tests, such as: ?Blood tests to check for diabetes mellitus or high cholesterol, or to measure hormone levels. ?Other tests to check for underlying health conditions. ?An ultrasound exam to check for scarring. ?A test to check blood flow to the penis. Doing a sleep study at home to measure nighttime erections. How is this treated? This condition may be treated by: Medicines, such as: ?Medicine taken by mouth to help you achieve an erection (oral medicine). ?Hormone replacement therapy to replace low testosterone levels. ?Medicine that is injected into the penis. Your health care provider may instruct you how to give yourself these injections at home. ?Medicine that is delivered with a short applicator tube. The tube is inserted into the opening at the tip of the penis, which is the opening of the urethra. A tiny pellet of medicine is put in the urethra. The pellet dissolves and enhances erectile function. This is also called MUSE (medicated urethral system for erections) therapy. Vacuum pump. This is a pump with a ring on it. The pump and ring are placed on the penis and used to create pressure that helps the penis become erect. Penile implant surgery. In this procedure, you may receive: ?An inflatable implant. This consists of cylinders, a pump, and a reservoir. The cylinders can be inflated with a fluid that helps to create an erection, and they can be deflated after intercourse. ?A semi-rigid implant. This consists of two silicone rubber rods. The rods provide some rigidity. They are also flexible, so the penis can both curve downward in its normal position and become straight for sexual intercourse. Blood vessel surgery to improve blood flow to the penis. During this procedure, a blood vessel from a different part of the body is placed into the penis to allow blood to flow around (bypass) damaged or blocked blood vessels. Lifestyle changes, such as exercising more, losing weight, and quitting smoking. Follow these instructions at home: Medicines Take oebn-rlu-dfduodw and prescription medicines only as told by your health care provider. Do not increase the dosage without first discussing it with your health care provider. If you are using self-injections, do injections as directed by your health care provider. Make sure you avoid any veins that are on the surface of the penis. After giving an injection, apply pressure to the injection site for 5 minutes. Talk to your health care provider about how to prevent headaches while taking ED medicines. These medicines may cause a sudden headache due to the increase in blood flow in your body. General instructions Exercise regularly, as directed by your health care provider. Work with your health care provider to lose weight, if needed. Do not use any products that contain nicotine or tobacco. These products include cigarettes, chewing tobacco, and vaping devices, such as e-cigarettes. If you need help quitting, ask your health care provider. Before using a vacuum pump, read the instructions that come with the pump and discuss any questions with your health care provider. Keep all follow-up visits. This is important. Contact a health care provider if: You feel nauseous. You are vomiting. You get sudden headaches while taking ED medicines. You have any concerns about your sexual health. Get help right away if: You are taking oral or injectable medicines and you have an erection that lasts longer than 4 hours. If your health care provider is unavailable, go to the nearest emergency room for evaluation. An erection that lasts much longer than 4 hours can result in permanent damage to your penis. You have severe pain in your groin or abdomen. You develop redness or severe swelling of your penis. You have redness spreading at your groin or lower abdomen. You are unable to urinate. You experience chest pain or a rapid heartbeat (palpitations) after taking oral medicines. These symptoms may represent a serious problem that is an emergency. Do not wait to see if the symptoms will go away. Get medical help right away. Call your local emergency services (911 in the [place] Do not drive yourself to the hospital. Summary Erectile dysfunction (ED) is the inability to get or keep an erection during sexual intercourse. This condition is diagnosed based on a physical exam, your symptoms, and tests to determine the cause. Treatment varies depending on the cause and may include medicines, hormone therapy, surgery, or a vacuum pump. You may need follow-up visits to make sure that you are using your medicines or devices correctly. Get help right away if you are taking or injecting medicines and you have an erection that lasts longer than 4 hours. This information is not intended to replace advice given to you by your health care provider. Make sure you discuss any questions you have with your health care provider. Document Revised: 06/27/2021 Document Reviewed: 06/27/2021 [employer] Patient Education 2022 [employer] Follow Up Care 12/21/2021 10:15:41 With:YUKO MYERS, Wyatt Crespo, URL Address: [facility] [address], [place] [address]- [phone] When: Unknown Comments:1 yr w/ PSA and T levels [facility] Evaluation note 08-29-2022 Note Date & Type Note Facility 08-29-2022 Evaluation note Encounter Date Diagnosis Assessment Notes August, Medicare annual wellness visit, subsequent (ICD-10 - Z00.00) Personalized health advice was given to the beneficiary including a written plan for screenings discussed and provided. Advanced care planning reviewed and/or information given as requested. Additional counseling was provided here today in regards to, [ ]. The above visit was performed by [ ], under direct supervision of [ ]. Document reviewed and amended by provider signed below. Healthy diet and exercise. Reviewed age-appropriate preventive testing recommended. August, Essential (primary) hypertension (ICD-10 - I10) This patient is instructed to consume a healthy, low-fat, low-salt diet. They are also encouraged to continue exercise to achieve/maintain a normal BMI. August, Type 2 diabetes mellitus with hyperglycemia, without long-term current use of insulin (ICD-10 - E11.65) This patient is following a comprehensive diabetic treatment plan. They are checking their feet daily for calluses and nonhealing ulcers. They are being seen for yearly dilated eye examinations. Goals: SBP less than 130, LDL less than 100, FBS less than 140, AC and A1C less than 7%. They are checking their BS daily, will which are reviewed at the office visit. A1C: [ ] Microalbumin: [ ] Eye exam: [ ] Foot exam: [ ] August, Type 2 diabetes mellitus with diabetic polyneuropathy, without long-term current use of insulin (ICD-10 - E11.42) Inspect feet daily for cuts and calluses.Recomme nd diabetic shoes and inserts to prevent callus formation.Fall precautions. August, Pure hypercholesterolemia (ICD-10 - E78.00) Instructed on diet and exercise with continued statin therapy.Discusse d the beneficial effects of lowering cholesterol in reducing the risk for cerebrovascular and cardiovascular disease. August, Chronic venous insufficiency (ICD-10 - I87.2) Avoid salt and elevate lower extremities, support stockings, inspect legs and feet daily for blisters and ulcerations. August, Morbid (severe) obesity due to excess calories (ICD-10 - E66.01) This patient has been instructed on a low-fat, high-fiber diet. They are instructed to reduce calories, portion sizes and snacks. It is recommended that they exercise for 30 minutes, 3-5 times weekly. August, Body mass index [BMI] 40.0-44.9, adult (ICD-10 - Z68.41) August, High risk medication use (ICD-10 - Z79.899) August, Colon cancer screening (ICD-10 - Z12.11) Referral for colonoscopy: Dr. Josue [employer] Other Hospital Discharge instructions 12-21-2021 Note Date & Type Note Facility 12-21-2021 Hospital Discharge instructions Patient Education 12/21/2021 10:09:32 Benign Prostatic Hyperplasia Benign Prostatic Hyperplasia Benign prostatic hyperplasia (BPH) is an enlarged prostate gland that is caused by the normal aging process and not by cancer. The prostate is a walnut-sized gland that is involved in the production of semen. It is located in front of the rectum and below the bladder. The bladder stores urine and the urethra is the tube that carries the urine out of the body. The prostate may get bigger as a man gets older. An enlarged prostate can press on the urethra. This can make it harder to pass urine. The build-up of urine in the bladder can cause infection. Back pressure and infection may progress to bladder damage and kidney (renal) failure. What are the causes? This condition is part of a normal aging process. However, not all men develop problems from this condition. If the prostate enlarges away from the urethra, urine flow will not be blocked. If it enlarges toward the urethra and compresses it, there will be problems passing urine. What increases the risk? This condition is more likely to develop in men over the age of 50 years. What are the signs or symptoms? Symptoms of this condition include: Getting up often during the night to urinate. Needing to urinate frequently during the day. Difficulty starting urine flow. Decrease in size and strength of your urine stream. Leaking (dribbling) after urinating. Inability to pass urine. This needs immediate treatment. Inability to completely empty your bladder. Pain when you pass urine. This is more common if there is also an infection. Urinary tract infection (UTI). How is this diagnosed? This condition is diagnosed based on your medical history, a physical exam, and your symptoms. Tests will also be done, such as: A post-void bladder scan. This measures any amount of urine that may remain in your bladder after you finish urinating. A digital rectal exam. In a rectal exam, your health care provider checks your prostate by putting a lubricated, gloved finger into your rectum to feel the back of your prostate gland. This exam detects the size of your gland and any abnormal lumps or growths. An exam of your urine (urinalysis). A prostate specific antigen (PSA) screening. This is a blood test used to screen for prostate cancer. An ultrasound. This test uses sound waves to electronically produce a picture of your prostate gland. Your health care provider may refer you to a specialist in kidney and prostate diseases (urologist). How is this treated? Once symptoms begin, your health care provider will monitor your condition (active surveillance or watchful waiting). Treatment for this condition will depend on the severity of your condition. Treatment may include: Observation and yearly exams. This may be the only treatment needed if your condition and symptoms are mild. Medicines to relieve your symptoms, including: ?Medicines to shrink the prostate. ?Medicines to relax the muscle of the prostate. Surgery in severe cases. Surgery may include: ?Prostatectomy. In this procedure, the prostate tissue is removed completely through an open incision or with a laparoscope or robotics. ?Transurethral resection of the prostate (TURP). In this procedure, a tool is inserted through the opening at the tip of the penis (urethra). It is used to cut away tissue of the inner core of the prostate. The pieces are removed through the same opening of the penis. This removes the blockage. ?Transurethral incision (TUIP). In this procedure, small cuts are made in the prostate. This lessens the prostate's pressure on the urethra. ?Transurethral microwave thermotherapy (TUMT). This procedure uses microwaves to create heat. The heat destroys and removes a small amount of prostate tissue. ?Transurethral needle ablation (TUNA). This procedure uses radio frequencies to destroy and remove a small amount of prostate tissue. ?Interstitial laser coagulation (ILC). This procedure uses a laser to destroy and remove a small amount of prostate tissue. ?Transurethral electrovaporization (TUVP). This procedure uses electrodes to destroy and remove a small amount of prostate tissue. ?Prostatic urethral lift. This procedure inserts an implant to push the lobes of the prostate away from the urethra. Follow these instructions at home: Take llvw-bhw-mtihlpc and prescription medicines only as told by your health care provider. Monitor your symptoms for any changes. Contact your health care provider with any changes. Avoid drinking large amounts of liquid before going to bed or out in public. Avoid or reduce how much caffeine or alcohol you drink. Give yourself time when you urinate. Keep all follow-up visits as told by your health care provider. This is important. Contact a health care provider if: You have unexplained back pain. Your symptoms do not get better with treatment. You develop side effects from the medicine you are taking. Your urine becomes very dark or has a bad smell. Your lower abdomen becomes distended and you have trouble passing your urine. Get help right away if: You have a fever or chills. You suddenly cannot urinate. You feel lightheaded, or very dizzy, or you faint. There are large amounts of blood or clots in the urine. Your urinary problems become hard to manage. You develop moderate to severe low back or flank pain. The flank is the side of your body between the ribs and the hip. These symptoms may represent a serious problem that is an emergency. Do not wait to see if the symptoms will go away. Get medical help right away. Call your local emergency services (911 in the [place] Do not drive yourself to the hospital. Summary Benign prostatic hyperplasia (BPH) is an enlarged prostate that is caused by the normal aging process and not by cancer. An enlarged prostate can press on the urethra. This can make it hard to pass urine. This condition is part of a normal aging process and is more likely to develop in men over the age of 50 years. Get help right away if you suddenly cannot urinate. This information is not intended to replace advice given to you by your health care provider. Make sure you discuss any questions you have with your health care provider. Document Released: 03/31/2006 Document Revised: 02/23/2019 Document Reviewed: 05/05/2017 [employer] Patient Education 2020 [employer]. Follow Up Care 12/11/2020 09:35:05 With:Wyatt CORTEZ MD, URL Address: [address] [place] [id number] When: Unknown [facility] Evaluation + Plan note Note Date & Type Note Facility Evaluation + Plan note Future Appointments Appointment Date:12/27/2022 09:30:00 AM Scheduled Provider:Wyatt CORTEZ MD Location:[facility] Appointment Type:URO Office Visit Diagnostic Tests PendingPSA Total 10/12/22Testosterone Level Total 10/12/22 [facility] Evaluation + Plan note Note Date & Type Note Facility Evaluation + Plan note Future Appointments Appointment Date:02/13/2024 10:15:00 AM Scheduled Provider:Wyatt CORTEZ MD Location:[facility] Appointment Type:URO Office Visit Diagnostic Tests PendingPSA Total 02/10/23Testosterone Level Total 02/10/23 [facility] Evaluation note Note Date & Type Note Facility Evaluation note Diagnosis Onset Date Chronic venous insufficiency of lower extremity acute Hypercholesterolemia acute Hypertension acute Type 2 diabetes mellitus with hyperglycemia acute Medicare annual wellness visit, subsequent noneactive Screening PSA (prostate specific antigen) noneactive [facility] Work Phone: History general Narrative - Reported Note Date & Type Note Facility History general Narrative - Reported Type Medical History Blurred vision, bilateral Medical History Unsteady Medical History Acute nonintractable headache, unspecified headache type Medical History Pure hypercholesterolemia Medical History Intertriginous candidiasis Medical History Type 2 diabetes kate itus with diabetic polyneuropathy, without long-term current use of insulin Medical History Controlled type 2 di abetes mellitus with hyperglycemia, without long-term current use of insulin Medical History Essential (primary) hypertension Medical History Poison edgardo Surgical History COLONOSCOPY 2009 Surgical History TRUS/Bx x2 Hospitalization History SEE SURGICAL HX [employer] Other Hospital course Narrative Note Date & Type Note Facility Hospital course Narrative No data available for this section [facility] Progress note Note Date & Type Note Facility Progress note No data available for this section [facility] Summary Purpose Family History No Family History Records Found Relationship Condition Age at Onset Recorded Date/T paulette brother Malignant neoplasm Unknown Family history of lung cancer Unknown father Malignant neoplasm Unknown Not Specified Family history of lung cancer Unknown Malignant neoplasm Unknown Advance Directives No Advanced Directives Records Found Advance Directive Response Recorded Date/ Time Advance Directives No September 08 2:21pm Chief Complaint and Reason for Visit Chief Complaint wellness Reason for Visit Chronic venous insuf ficiency of lower extremity Hypercholesterolemia Hypertension Type 2 diabetes mellitus with hyperglycemia Medicare annual wellness visit, subsequent Screening PSA (prostate specific antigen) Additional Source Comments (unrecognized sect ion and content) No Status Records FoundNo Status Records FoundNo Status Records Found INFORMATION SOURCE (unrecogn ized section and content) DATE CREATED AUTHOR 12/13/2021 [facility] DATE CREATED AUTHOR AUTHOR'S ORGANIZ ATION 09/20/2023 [facility] DATE CREATED AUTHOR AUTHOR'S ORGANIZ ATION 12/26/2023 [facility] Care Team (unrecognized sect ion and content) Team Status: Active Member Role Status Dates Sal Sinclair DO Primary Care Provider Active Team Status: Inactive Member Role Status Dates Sal Sinclair DO Primary Care Provide r, Attending Provider Active Start: October 02, 2023 End: October 02, 2023 REASON FOR VISIT (unrecogniz ed section and content) Wellness Goals (unrecognized section and content) Goals may be documented in a n alternate section FOR RECORDS PERTAINING TO PATIENTS WHO ARE OR HAVE BEEN ENROLLED IN A CHEMICAL DEPENDENCY/SUBSTANCEABUSE PROGRAM, SOME INFORMATION MAY BE OMITTED. This clinical summary was aggregated from multiple sources. Caution should be exercised in using it in the provision of clinical care. This summary normalizes information from multiple sources, and as a consequence, information in this document may materially change the coding, format and clinical context of patient data. In addition, data may be omitted in some cases. CLINICAL DECISIONS SHOULD BE BASED ON THE PRIMARY CLINICAL RECORDS. [facility] provides no warranty or guarantee of the accuracy or completeness of information in this document.
[2024-01-29 17:23] LABS: Prostate Specific Antigen Dx 3.27 ng/mL (<=4.00)
[2024-01-31 08:11] LABS: Testosterone 239 ng/dL (264-916)
== END 2024-01-29 15:01 | disposition home or self-care (01) ==
LOC: LAB 15:03
PROVIDERS: PCP Internal Medicine; Visit Provider Urology
DX: N40.1 Benign prostatic hyperplasia with lower urinary tract symptoms (principal); E29.1 Testicular hypofunction; N52.9 Male erectile dysfunction, unspecified
CPT/HCPCS: 36415; 84153; 84403

== ENCOUNTER 2024-04-05 11:26 | Outpatient (OUT) | payer MEDICARE, SELFPAY ==
[2024-04-05 12:22] LABS: Erythrocyte Sedimentation Rate 15 mm/hr (<=20)
[2024-04-05 12:31] LABS: C Reactive Protein <0.50 mg/dL (<=0.50); Thyroid Stimulating Hormone 1.912 uIU/mL (0.358-3.740)
[2024-04-06 04:07] LABS: Vitamin B12 461 pg/mL (232-1245)
[2024-04-06 09:52] LABS: Creatine Kinase 409 U/L (39-308)
[2024-04-08 11:08] LABS: Albumin 3.9 g/dL (2.9-4.4); Alpha-1-Globulin 0.2 g/dL (0.0-0.4); Alpha-2-Globulin 0.7 g/dL (0.4-1.0); Free Kappa Lt Chains,S 37.8 mg/L (3.3-19.4); Gamma Globulin 1.1 g/dL (0.4-1.8); Immunoglobulin A, Qn, Serum 271 mg/dL (61-437); Immunoglobulin G, Qn, Serum 1114 mg/dL (603-1613); Immunoglobulin M, Qn, Serum 95 mg/dL (15-143); Kappa/Lambda Ratio,S 1.72 (0.26-1.65)
== END 2024-04-05 11:27 | disposition home or self-care (01) ==
PROVIDERS: PCP Internal Medicine; Visit Provider Internal Medicine
DX: R53.83 Other fatigue (principal); E11.65 Type 2 diabetes mellitus with hyperglycemia; I10 Essential (primary) hypertension; I87.2 Venous insufficiency (chronic) (peripheral); R29.898 Other symptoms and signs involving the musculoskeletal system; E11.42 Type 2 diabetes mellitus with diabetic polyneuropathy; M79.10 Myalgia, unspecified site
CPT/HCPCS: 36415; 82550; 82607; 82784; 83521; 84155; 84165; 84443; 85652; 86140

== ENCOUNTER 2024-10-06 13:58 | Outpatient (OUT) | payer MEDICARE, SELFPAY ==
[2024-10-06 15:01] LABS: Chol HDL Ratio 1.7; Cholesterol 101 mg/dL (<=200); Creatine Kinase 229 U/L (39-308); HDL Cholesterol 60 mg/dL (40-60); Triglycerides 85 mg/dL (<=150)
== END 2024-10-06 13:59 | disposition home or self-care (01) ==
LOC: LAB 14:06
PROVIDERS: PCP Internal Medicine; Visit Provider Internal Medicine
DX: E78.00 Pure hypercholesterolemia, unspecified (principal); M60.869 Other myositis, unspecified lower leg
CPT/HCPCS: 36415; 80061; 82550

== ENCOUNTER 2025-03-03 14:20 | Outpatient (OUT) | payer MEDICARE, SELFPAY ==
--- OUTSIDE RECORDS SUMMARY | 2025-03-03 14:27 | XMS_ITS | Clinical Summary ---
Author Organization [facility] Address [address] [place] [id number] Care Team Providers [employer] Name Role Phone Sal Sinclair DO Primary Care Provider [phone] Allergies No known active allergies Medications MedicationSigDispense QuantityRefillsLast FilledStart DateEnd DateStatus amlodipine besylate/benazepril(LOTREL 5 MG-20 MG CAP) Take one(1) tablet daily.ctive aspirin(ECOTRIN LOW STRENGTH 81 MG TAB) Take one(1) tablet daily.ctive metFORMIN (GLUCOPHAGE) 500 mg tablet Take 500 mg by mouth once daily.Active atorvastatin (LIPITOR) 10 mg tablet Take 10 mg by mouth once daily.Active ketoconazole (NIZORAL) 2 % shampoo Use as body wash daily until symptoms resolve then use as maintenance 354 mL Active tretinoin (RETIN-A) 0.1 % cream Apply pea sized amount to entire face once a day at night 45 g 5011/21/2017Active amLODIPine-Benazepril 10-40 mg per capsule Take 1 capsule by mouth once daily.Active amLODIPine (NORVASC) 5 mg tablet Take 5 mg by mouth once daily.Active SOOLANTRA 1 % APPLY TO NOSE ONCE DAILY AT BEDTIME 45 g Active Active Problems No known active problems Social History Tobacco UseTypesPacks/DayYears UsedDateSmoking Tobacco: NeverAlcohol UseStandard Drinks/WeekCommentsYes0 (1 standard drink = 0.6 oz pure alcohol)rarelyArea Deprivation IndexAnswerDate RecordedNational Score (1-100), lower number is lower riskNot on file03/19/2020State Score (1-10), lower number is lower riskNot on file03/19/2020Data from: https://www.neighborhoodatlas.medicine.[facility].edu/. Last address used for calculationNot on file03/19/2020Sex and Gender Information ValueDate RecordedSex Assigned at BirthNot on fileLegal TgaZdey46/02/2012 8:30 AM ESTGender IdentityNot on fileSexual OrientationNot on file Plan of Treatment Health MaintenanceDue DateLast DoneCommentsAnxiety Eskovopqj30/05/1970Depression Swwwltair34/05/1970Hepatitis C Smgyuxbwi52/05/1970DTaP,Tdap,Td Vaccine (1 - Tdap)1970Lipid Aiqbeaeve64/05/1987CT Qeptizyekiyi84/05/1997Cologuard (FIT-DNA)05/19/19968506Zggcwyztdvn25/05/1997Colorectal Cancer Gyypzovtb53/05/1997 Diabetes Hxytnopiz66/05/1997Fecal Occult Blood05/19/19967122Vdjfhndyabhfu54/05/1997 Pneumococcal Vaccine: 50+ (1 of 1 - PCV)2001Shingrix Vaccine (1 of 2) 2001Advance Directive Mnwmsumuey19/01/2025ovid-19 Vaccine (1 - 2024-26 season)2024Influenza Vaccine (#1)2024RSV Vaccine (1 - 1-dose 75+ series)2026 Insurance Care Teams Team MemberRelationshipSpecialtyStart DateEnd Date Sal Sinclair DO PCP - General10/30/09
--- OUTSIDE RECORDS SUMMARY | 2025-03-03 14:27 | XMS_ITS | Clinical Summary ---
Author Organization [facility] Address [address] [place] [address] Phone Care Team Providers Care President Celebrity Acquistion Name Role Phone Sal Sinclair DO Primary Care Provider [phone] Allergies No known active allergies Medications MedicationSigDispense QuantityRefillsLast FilledStart DateEnd DateStatus BENAZEPRIL HCL, BULK, MISC Active amLODIPine-benazepril (LOTREL) 10-40 mg per capsule Take by mouth daily.08/06/2022ctive amLODIPine-atorvastatin (CADUET) 10-40 mg per tablet 1 tablet 1 (one) time each day at the same time.Active aspirin 81 mg EC tablet Take 1 tablet (81 mg total) by mouth daily.Active hydroCHLOROthiazide (HYDRODIURIL) 25 mg tablet Take 1 tablet (25 mg total) by mouth 1 (one) time each day.Active metFORMIN (GLUCOPHAGE) 500 mg tablet Take 1 tablet (500 mg total) by mouth daily.06/21/2022ctive atorvastatin (LIPITOR) 10 mg tablet Take 1 tablet (10 mg total) by mouth daily.07/23/2022ctive Ozempic 1 mg/dose (4 mg/3 mL) injection pen Inject 1 mg under the skin every 7 (seven) days.5Active rosuvastatin (CRESTOR) 40 mg tablet Take 1 tablet (40 mg total) by mouth 1 (one) time each day.5Active latanoprost (XALATAN) 0.005 % ophthalmic solution LOCATION: BOTH EYES. APPLY ONE DROP IN EACH EYE BEFORE BED.5Active multivitamin minerals-iron (THERA-M) 9 mg iron-400 mcg tablet Take 1 tablet by mouth daily.Active sildenafil (REVATIO) 20 mg tablet TAKE 3 TO 5 TABLETS BY MOUTH PRIOR TO SEXUAL RELATIONS.Active gabapentin (NEURONTIN) 100 mg capsule take 1 capsule by mouth three times daily for 30 days5Active Active Problems No known active problems Immunizations ImmunizationAdministration DatesNext DueInfluenza Quadravalent, 0.5ml (Fluad) 65yo and older01/31/2023,02/08/2021Influenza Quadravalent, 0.5ml (Fluzone High- dose) 65yo and older01/19/2022,02/15/2020Influenza trivalent, 0.5mL (Fluad) 65yo and older4Pfizer SARS-CoV-2 COVID-19, mRNA, LNP-S, preservative free 06/10/2020,1Pneumococcal conjugate 20 valent (Prevnar 20, PCV 20) 2mo and older2Pneumococcal polysaccharide 23 valent (Pneumovax 23) 2yo and older02/28/2020Tdap Tetanus diptheria acellular pertussis (Boostrix; Adacel) 7yo and older10/07/2024Zoster recombinant (Shingrix) 19yo and older08/26/2022, 04/17/2022 Social History Tobacco UseTypesPacks/DayYears UsedDateSmoking Tobacco: NeverSmokeless Tobacco: Never Tobacco Cessation:Counseling Given: Not Answered Alcohol UseStandard Drinks/WeekCommentsDefer0 (1 standard drink = 0.6 oz pure alcohol)Sex and Gender InformationValueDate RecordedSex Assigned at BirthNot on fileLegal WtpOcyc3611/07/2020 2:35 PM EDTGender IdentityNot on fileSexual OrientationNot on file Obstetrics History Last Filed Vital Signs Vital SignReadingTime TakenCommentsBlood Bnynhgre681/6608 8:15 AM EDT Mxjor4741 8:15 AM ZQJRjhcpeojexj70.8 ??C (98.3 ??F)11/18/2024 8:15 AM EDTRespiratory Ociu3155 12:04 PM EDTOxygen Irdsrkzhgn99%11/18/2024 8:15 AM EDTInhaled Oxygen Concentration--Jzdgzv101 kg (320 lb)09/02/2023 3:48 PM EDT Bziael624.8 cm (5' 10 )09/02/2023 3:48 PM EDTBody Mass Index45.9209/02/2023 3:48 PM EDT Plan of Treatment Health MaintenanceDue DateLast DoneCommentsDiabetes: Annual Foot Exam1961 Diabetes: Annual Retina Eye Exam2RSV Immunization Adult Patients (1 - Risk 50-74 years 1-dose series)2001Cholesterol Screening (Lipid Panel) 11/07/2020Falls Risk Itplzxeadt53/27/2021Hepatitis C Jgoiagxgc60/27/2021Medicare Annual Wellness Visit11/07/2020ocial Influencers of Health Hupyscjdc51/27/2021 Diabetes: Annual GFR (Glomerular Filtration Rate)iabetes: Annual Urine Albumin-Creatinine Ratio (uACR)11/05/2023Hypertension/CHF/CAD Annual BMP Blood Test/epression Hohcixdfg38/01/2025Diabetes: Blood Sugar Control Test (HGBA1C)505COVID-19 Vaccine ( season)/04/2023, 01/31/2023, 08/26/2022, Additional history existsInfluenza Vaccine (#1), 01/31/2023, 01/19/2022, Additional history existsColorectal Cancer Screening: Fjoronagkve90/10/2035 09/21/2024, 4DTaP,Tdap,and Td Vaccines (2 - Td or Tdap)10/07/2034 10/07/2024Pneumococcal Vaccine: 50+ BdrpfRskygcnhr76/04/2022, 02/28/2020Zoster StfkpxfmKbzxsfkgg85/15/2023, 04/17/2022HIB VaccinesAged OutNo longer eligible based on patient's age to complete this topicHPV VaccinesAged OutNo longer eligible based on patient's age to complete this topicHepatitis A VaccinesAged OutNo longer eligible based on patient's age to complete this topicHepatitis B VaccinesAged OutNo longer eligible based on patient's age to complete this topic IPV VaccinesAged OutNo longer eligible based on patient's age to complete this topicMMR VaccinesAged OutNo longer eligible based on patient's age to complete this topicMeningococcal ACWY VaccineAged OutNo longer eligible based on patient's age to complete this topicMeningococcal B VaccineAged OutNo longer eligible based on patient's age to complete this topicRSV Immunization Patients Under 20 monthsAged OutNo longer eligible based on patient's age to complete this topicVaricella VaccinesAged OutNo longer eligible based on patient's age to complete this topic Insurance Care Teams Team MemberRelationshipSpecialtyStart DateEnd Date Sal Sinclair DO [address] [place] [id number] PCP - GeneralInternal Medicine11/07/20
--- OUTSIDE RECORDS SUMMARY | 2025-03-03 14:29 | XMS_ITS | CCD ---
Author Organization [facility] Care Team Providers Care Binder And Box Builder Name Role Phone DR SAL SINCLAIR Primary Care Unavailable CORTEZ, DR SALAZAR Admitting Unavailable CORTEZ, DR SALAZAR Attending Unavailable CORTEZ, DR SALAZAR Consulting Unavailable BALL, DR GR Primary Care Unavailable BALL, DR GR Admitting Unavailable BALL, DR GR Attending Unavailable BALL, DR GR Consulting Unavailable BALL, DR GR Primary Care Unavailable BALL, DR GR Admitting Unavailable BALL, DR GR Attending Unavailable BALL, DR GR Consulting Unavailable WEST, DR JUANITO Mccollum Consulting Unavailable SAL SINCLAIR Primary Care Physician Sal Sinclair Sal Sinclair DO Primary Care Provider Yahir BUENO, Sal Cooley Primary Care Provider RAJ RUIZ Attending Unavailable BALL, SAL Cooley Referring Unavailable BALL, SAL Cooley Primary Care Unavailable BALL, SAL Cooley Referring Unavailable BALL, SAL Cooley Primary Care Unavailable VENKATESH MALONE Admitting Unavailable HAVENKATESH PUENTES Attending Unavailable BALL, SAL Cooley Referring Unavailable BALL, SAL Cooley Primary Care Unavailable BALL, SAL Cooley Referring Unavailable BALL, SAL Cooley Primary Care Unavailable BALL, SAL Cooley Referring Unavailable BALL, SAL Cooley Primary Care Unavailable BALL, SAL Cooley Referring Unavailable BALL, SAL Cooley Primary Care Unavailable Wyatt CORTEZ Attending Unavailable CORTEZ, Wyatt Crespo Attending Unavailable Ball Sal BUENO Primary Care Provider Sal Sinclair DO Attending Provider [phone] Allergies Allergy ClassificationReported Allergen(s)Allergy TypeDate of OnsetReaction(s) Facility (1 source)No Known Medication Allergies; Translations: [No Known Medication Allergies]Propensity to adverse reactions (disorder)[facility] Medications Current Medications MedicationDrug Class(es)DatesSig (Normalized)Sig (Original)amLODIPine 10 mg / benazepril hydrochloride 40 mg oral capsule (20 sources)Dihydropyridine Calcium Channel Annika, Angiotensin Converting Enzyme InhibitorStart: 29-52-2545eozj 1 capsule by mouth once dailyAmlodipine- Benazepril 10-40 mg capsule Active 0 .ROUTE .COMPLEX 90 June 06, 2024 9:55am TAKE 1 CAPSULE BY MOUTH EVERY DAY Complies with drug therapyStart: 10-02-2023 End: 92-66-0445wipn 1 capsule by mouth once dailyAmlodipine-Benazepril 10-40 mg capsule Discontinued 1 CAP PO Daily October 02, 2023 9:48am June 06, 2024 9:55amStart: 06-23-2023 End: 47-95-8720rant 1 capsule by mouth once dailyAmlodipine-Benazepril 10-40 mg capsule Discontinued 0 .ROUTE .COMPLEX June 23, 2023 1:24pm October 02, 2023 9:49am TAKE 1 CAPSULE BY MOUTH EVERY DAYStart: 70-90-9298fnOSMBUhjk- benazepril (LOTREL) 10-40 mg per capsule Take by mouth in the morning. 08/06/2022 ActiveStart: 12-11-2020 End: 03-12-9871dpbg 1 capsule by mouth once dailyAmlodipine-Benazepril 10-40 mg capsule Discontinued 1 CAP PO Daily June 23, 2023 12:00am June 23, 2023 1:24pmaspirin 81 mg delayed release oral tablet (11 sources)Platelet Aggregation Inhibitor, Nonsteroidal Anti-inflammatory Drug Start: 60-40-5744qjrw 1 tablet by mouth once dailyAspirin 81 mg tablet,delayed release (DR/EC) Active 81 MG PO Daily October 02, 2023 12:00am Complieswith drug therapyStart: 14-73-1682vipb 1 mg by mouth once dailyaspirin 81 mg oral tablet mg tab(s), Oral, Daily, Refills(s) 0 Start Date: 03/05/19 Status: Ordered atorvastatin 10 mg oral tablet (14 sources)HMG-CoA Reductase InhibitorStart: 25-82-8420cfcf 1 tablet by mouth once dailyAtorvastatin 10 mg tablet Active 0 .ROUTE .COMPLEX 90 January 14, 2024 5:16pm TAKE 1 TABLET BY MOUTH EVERY DAY Complies with drug therapyStart: 03-05-2019 End: 25-21-8795yibf 1 tablet by mouth once dailyAtorvastatin 10 mg tablet Discontinued 10 MG PO Daily July 08, 2023 12:00am January 14, 2024 5:16pm bisacodyl 5 mg delayed release oral tablet (2 sources)Stimulant LaxativeStart: 16-67-9297wysq 1 tablet by mouth once daily as needed for constipationbisacodyL (DULCOLAX) 5 mg EC tablet Take 1 tablet (5 mg total) by mouth daily as needed for constipation. 2 tablet 08/11/2024 Active Start: 30-09-3498qyfbjhpmO (DULCOLAX) 5 mg EC tablet Indications: Tubular adenoma Take 1 tablet (5 mg total) by mouth See Admin Instructions. 2 tablet 07/29/2023 Activegabapentin 100 mg oral capsule (5 sources)Anti-epileptic AgentStart: 20-29-2114zkxb 1 capsule by mouth three times dailyGabapentin 100 mg capsule Active 0 .ROUTE .COMPLEX November 18, 2024 5:51pm TAKE 1 CAPSULE BY MOUTH THREE TIMES DAILY FOR 30 DAYS Complies with drug therapyStart: 04-06-2024 End: 33-69-8220wmqb 1 capsule by mouth three times dailyGabapentin 100 mg capsule Discontinued 100 MG PO Three times daily April 06, 2024 1:00amAugu2024 5:51pmhydroCHLOROthiazide 25 mg oral tablet (16 sources)Thiazide DiureticStart: 02-12-2024 End: 19-01-5814ffvc 1 tablet by mouth once dailyHydrochlorothiazide 25 mg tablet Active 0 .ROUTE .COMPLEX August 04, 2024 6:45am TAKE 1 TABLET BY MOUTH EVERY DAY Complies with drug therapyStart: 12-06-2019 End: 63-50-8291tzct 1 tablet by mouth once dailyHydrochlorothiazide 25 mg tablet Discontinued 25 MG PO Daily July 08, 2023 12:00am January 1:32pm ketoconazole 20 mg/ml medicated shampoo (6 sources)Azole AntifungalStart: 10-02-2023 End: 19-71-9143Pxfntkrubedm 2 % shampoo Active 1 APPLIC TOPICAL 3 Times a week 120 October 02, 2023 10:11am Complies with drug therapy sqjoknwe-bhkz-UB-calcium &mins (THERAGRAN-M) 9 mg iron-400 mcg tablet (5 sources)kwgqgvdw-thxm-ZW-calcium &mins (THERAGRAN-M) 9 mg iron-400 mcg tablet Take 1 tablet by mouth inthe morning. ActiveOZEMPIC 1 mg/dose (4 mg/3 mL) pen injector (2 sources)Start: 18-98-8510DAVTPGQ 1 mg/dose (4 mg/3 mL) pen injector 1 MG (0.75 ML) SUBCUTANEOUSLY EVERY WEEK FOR 28 DAYS FOR4 WEEKS 07/01/2024 Active polyethylene glycol 3350 595458 mg / potassium chloride 2970 mg / sodium bicarbonate 6740 mg / sodium chloride 5860 mg / sodium sulfate 23259 mg powder for oral solution (2 sources)Osmotic LaxativeStart: 54-01-4093ipvgtxayfxmq glycol (GoLYTELY) 236-22.74-6.74 -5.86 gram solution Please follow office colonoscopy i nstructions. 4000 mL 08/11/2024 ActiveStart: 86-17-8119nrfazlnfjepp glycol (GoLYTELY) 236-22.74-6.74 -5.86 gram solution Indications: Tubular adenoma Pleas e follow office instructions for colonoscopy preparation. 4000 mL 07/29/2023 Activerosuvastatin calcium 40 mg oral tablet (2 sources)HMG-CoA Reductase InhibitorStart: 63-50-7494qije 1 tablet by mouth once dailyRosuvastatin 40 mg tablet Active 40 MG PO Daily August 17, 2024 10:35pm Complies with drug therapyStart: 08-17-2024 End: 93-21-5217dzoe 1 capsule by mouth once dailyRosuvastatin 40 mg capsule, sprinkle Discontinued 40 MG PO Daily August 17, 2024 12:00am August 17, 2024 10:35pmSemaglutide (5 sources)Start: 62-94-3114myyiio 1 mg by subcutaneous injection every week Semaglutide (Ozempic) 1 mg/dose (4 mg/3 mL) pen injector Active 1 MG SUBCUT every week November 18, 2024 5:50pm Complies with drug therapyStart: 06-11-2024 End: 31-93-0877ejgrco 1 mg by subcutaneous injection every weekSemaglutide 1 mg/dose (4 mg/3 mL) pen injector Discontinued 1 MG SUBCUT every week 3 June 11, 2024 2:34pm November 18, 2024 5:51pm for 4 weeksStart: 06-11-2024 inject 1 mg by subcutaneous injection every weekSemaglutide 1 mg/dose (4 mg/3 mL) pen injector Active 1 MG SUBCUT every week 3 June 11, 2024 2:34pm for 4 weeksStart: 05-31-2024 End: 44-71-8959qkmtvd 1 mg by subcutaneous injection every weekSemaglutide 1 mg/dose (4 mg/3 mL) pen injector Discontinued 1 MG SUBCUT every week 3 May 31, 2024 10:56pm June 11, 2024 7:49pm for 4 weeks Completed/Discontinued Medications MedicationDrug Class(es)DatesSig (Normalized)Sig (Original)latanoprost 0.05 mg/ml ophthalmic solution (3 sources)Prostaglandin AnalogStart: 10-02-2023 End: 04-25-1623wzqt 1 drop(s) into the eye(s) once dailyLatanoprost 0.005 % drops Discontinued 1 DROPS EYE-BOTH Daily October 02, 2023 12:00am October 01 9:49amStart: 10-02-2023 End: 62-72-6845nnxn 1 drop(s) into the eye(s) once dailyLatanoprost 0.005 % drops Discontinued 1 DROPS EYE-BOTH Daily October 02, 2023 12:00am October 01 9:49amStart: 10-02-2023 End: 69-96-5405exca 1 drop(s) into the eye(s) once dailyLatanoprost Discontinued 1 DROPS EYE-BOTH Daily October 02, 2023 12:00am October 02, 2023 9:49ammetFORMIN hydrochloride 500 mg oral tablet (19 sources)BiguanideStart: 07-08-2023 End: 05-32-3091teha 1 tablet by mouth once dailyMetformin 500 mg tablet Discontinued 0 .ROUTE .COMPLEX 90 February 12, 2024 1:32pm August 03, 2024 7:40am TAKE 1 TABLET BY MOUTH EVERY DAYStart: 03-05-2019 End: 36-22-6417rxfp 1 tablet by mouth once dailyMetformin 500 mg tablet Discontinued 500 MG PO Daily July 08, 2023 12:00am July 08, 2023 6:05pm predniSONE 20 mg oral tablet (4 sources)Start: 07-08-2023 End: 67-70-4085Lotactafxm 20 mg tablet Discontinued 20 MG PO July 08, 2023 12:00am October 02, 2023 9:48am 1 tablet Orally tid w/ food x 3 days, then bid w/ food x 3 days, then qd w/ food x 3 daysStart: 23-51-9833vimoxsMRBG 20 MG 1 tablet Orally tid w/ food x 3 days, then bid w/ food x 3 days, then qd w/ food x 3 days for 9 days August, ActiveSemaglutide (6 sources)Start: 05-31-2024 End: 95-93-3514Prcuwphhjvw (Ozempic) 0.25 mg or 0.5 mg (2 mg/3 mL) pen injector Discontinued 1 MG SUBCUT every week 3 May 31, 2024 10:55pm May 31, 2024 10:56pm for 4 weeksStart: 05-05-2024 End: 26-05-4127Oxzfzuenwhx (Ozempic) 0.25 mg or 0.5 mg (2 mg/3 mL) pen injector Discontinued 0.5 MG SUBCUT every week 3 May 05, 2024 11:28am May 31, 2024 10:55pm for 4 weeksStart: 04-06-2024 End: 02-58-5510Lwcdyqthuke (Ozempic) 0.25 mg or 0.5 mg (2 mg/3 mL) pen injector Discontinued 0.25 MG SUBCUT every week 3 April 06, 2024 1:00am May 05, 2024 11:29am for 4 weekssildenafil 20 mg oral tablet (3 sources)Phosphodiesterase 5 InhibitorStart: 82-31-3939avssicsaqe 20 mg oral tablet 20 mg = 1 tab(s), Oral, As Directed, Take 3-5 tablets by mouth prior to sexual relations, # 90 cap(s), Refills(s) 3, Pharmacy: [id number], 178, cm, 02/26/2411:12:00 EST, Height/Length Dosing, 147.7, kg, 02/27/24 11:12:00 EST, Weight Dosing Start Date: 02/27/24 Status: OrderedStart: 02-30-9643abunthyqzl 20 mg oral tablet 20 mg = 1 tab(s), Oral, As Directed, Take 3-5 tablets by mouth prior to sexual relations, # 90 cap(s), Refills(s) 3, Pharmacy: [id number], 178, cm, 02/11/2312:36:00 EDT, Height/Length Dosing, 143, kg, 02/10/23 12:36:00 EDT, Weight Dosing Start Date: 02/10/23 Status: OrderedStart: 35-14-7623jojtnzcbuo 20 mg oral tablet 20 mg = 1 tab(s), Oral, As Directed, Take 3-5 tablets by mouth prior to sexual relations, # 90 cap(s), Refills(s) 3, Pharmacy: [id number] Start Date: 12/21/21 Status: Ordered1 ml triamcinolone acetonide 40 mg/ml injection (2 sources)CorticosteroidStart: 08-24-2024 End: 64-46-686251 mg, intra-articular, One-Time Injection, Starting on Fri08/24/24 at 0848, For 1 dose Problems Active Problems Problem ClassificationProblemDateDocumented DateEpisodic/ChronicAllergic reactions (1 source)Allergic contact dermatitis due to plants, except food; Translations: [Poison edgardo]EpisodicBlindness and vision defects (5 sources)Other visual disturbances; Translations: [Visual disturbance]Onset: 53-41-9867CzfkbkcfRtfucjxn atherosclerosis and other heart disease (2 sources)Coronary arteriosclerosis; Translations: [Atherosclerotic heart disease of [place]itim[place] coronary artery without angina pectoris]18-77-9024Sukfuog Comment on above:CAC: LM23, LAD 360, LCx 171, RCA 1196, PDA 216, total 2023 - 05/2024,Echo: LVEF 70%, normal RV size/function,CAC: LM23, LAD 360, LCx 171, RCA 1196, PDA 216, total 2023 - 05/2024,Echo: LVEF 70%, normal RV size/function, ELANA, aortic sclerosis - 05/2024,Stress Test: no reversible defect, LVEF 75% - 10/2024 Diabetes mellitus with complications (20 sources)Type 2 diabetes mellitus with hyperglycemia; Translations: [Type 2 diabetes mellitus]Onset: 02-32-4564IokwtktXpastkq on above:MARITZA: left 1.16, right 1.2 05/2024Diabetes mellitus without complication (3 sources)Diabetes fnvrgmdi94-97-1219TfdmltiEvxieektu of lipid metabolism (10 sources)Pure hypercholesterolemia, unspecified; Translations: [Pure hypercholesterolemia]Onset: 54-39-0085BoqvefqAgxnwaerc hypertension (13 sources)Essential (primary) hypertension; Translations: [Hypertensive disorder]Onset: 414824-68-2451GubctgwKahjmgfwsmdfn symptoms and ill- defined conditions (3 sources)Afghwhrp91-82-7891CdsrmxogAnqloetl; including migraine (1 source)Headache; including migraine; Translations: [HEADACHE UNSPECIFIED] Onset: 87-07-4896Slrjltkzczb of prostate (10 sources)Benign prostatic hyperplasia with lower urinary tract symptoms; Translations: [Benign prostatic hypertrophy with outflow obstruction]Onset: 31-43-8202UljxgubXrptoefzcfww conditions of male genital organs (3 sources)Chronic lntvlatdhuy36-93-7234HjqqyvlWkuucnv and fatigue (2 sources)Fatigue; Translations: [Other fatigue]38-21-4669XjoqqigaTzjjvsi (1 source)Candidiasis of skin and nails; Translations: [Candidiasis of skin and nail]EpisodicNonspecific chest pain (1 source)Chest pain, unspecified; Translations: [Chest pain, unspecified]Onset: 55-98-4795WvattcqsVdrkyaaaaedgqj (6 sources)Osteoarthritis of right knee joint; Translations: [Unilateral primary osteoarthritis, right knee]Onset: 529636-83-7471RvgckjbZmmbg aftercare (2 sources)Other long-term (current) drug therapy; Translations: [OTH [facility] CURRENT DRUG THERAPY]Onset: 05-11-3365ZbkarhesCojgt and unspecified benign neoplasm (1 source)Polyp of colon; Translations: [Polyp of colon]Onset: 09-21-2024 EpisodicOther connective tissue disease (2 sources)Myositis; Translations: [Myositis, unspecified]81-29-4396Aauhvauo Other connective tissue disease (2 sources)Muscle weakness of limb; Translations: [Other symptoms and signs involving the musculoskeletal system]57-51-5598ChnvdarlUztom diseases of kidney and ureters (1 source)Urinary tract obstruction; Translations: [Other obstructive and reflux uropathy]Onset: 63-00-9461UwmuamkhLbcsb diseases of veins and lymphatics (1 source)Peripheral venous insufficiency; Translations: [Venous insufficiency (chronic) (peripheral)]EpisodicOther diseases of veins and lymphatics (3 sources)Venous insufficiency (chronic) (peripheral); Translations: [Venous (peripheral) insufficiency, unspecified]EpisodicOther diseases of veins and lymphatics (4 sources)Venous insufficiency of leg; Translations: [Venous insufficiency (chronic) (peripheral)]74-56-9402BhrgqoplUvegp endocrine disorders (1 source)Testicular hypofunction; Translations: [TESTICULAR HYPOFUNCTION]Onset: 33-73-8688VkjniapAgllb endocrine disorders (3 sources)Testicular hypofunction; Translations: [Testicular hypofunction] Onset: 29-15-7476JwyswuhTlgmi endocrine disorders (3 sources)Male pyzzesdeelsm27-70-8285XcuzblvRlzqp male genital disorders (4 sources)Male erectile dysfunction, unspecified; Translations: [Erectile dysfunction]Onset: 06-83-8678UexhhjjAavmj male genital disorders (3 sources)Lrdpzplwl03-71-4795LgpojdfQehvb nervous system disorders (2 sources)Peripheral nerve disease ; Translations: [Polyneuropathy, unspecified]33-73-2843BfdpxopTdvig nervous system disorders (2 sources)Unsteadiness on feet; Translations: [Unsteady]Onset: 11-06-2021 EpisodicOther nutritional; endocrine; and metabolic disorders (1 source)Body mass index 40+ - severely obese; Translations: [Body mass index (BMI) 40.0-44.9, adult]ChronicOther nutritional; endocrine; and metabolic disorders (1 source)Severe obesity; Translations: [Morbid (severe) obesity due to excess calories]ChronicOther nutritional; endocrine; and metabolic disorders (1 source)Morbid (severe) obesity due to excess caloriesChronicOther nutritional; endocrine; and metabolic disorders (1 source)Body mass index (BMI) 40.0-44.9, adultChronicOther nutritional; endocrine; and metabolic disorders (3 sources)Obesity; Translations: [Obesity, unspecified]95-40-5366HxbpncgNrnfy nutritional; endocrine; and metabolic disorders (1 source)Obesity, unspecified; Translations: [Obesity, unspecified]08-17-2024 ChronicOther screening for suspected conditions (not mental disorders or infectious disease) (5 sources)Encounter for screening for malignant neoplasm of colon; Translations: [Encounter for screening formalignant neoplasm of prostate] EpisodicResidual codes; unclassified (1 source)PainOnset: 02-74-3496SvzsxuokAjirqzfbyjdm (3 sources)Drug therapy erpiovw42-37-2923Apuoxulwqduq (1 source)Autogenerated ProblemOnset: 422254-59-9908Oxcwzmbiqpyn (1 source)Tubular adenoma D12.6Onset: 09-21-2024 Past or Other Problems Problem ClassificationProblemDateDocumented DateEpisodic/ChronicOther and unspecified benign neoplasm (2 sources)Tubular adenoma ; Translations: [Benign neoplasm, unspecified site] 29-02-2574GvwkmfoyVrhhsrdqqahi (1 source)Acute headache; Translations: [Acute nonintractable headache, unspecified headache type] Results Test NameValueInterpretationReference RangeFacilityNUC STRESS EXERCISEon 54-65-6919GWW STRESS EXERCISENUC STRESS EXERCISE HISTORY: A 74-year-old male with a history of the hypertension, diabetes and hypercholesterolemia. Complaining of the chest pain. TECHNIQUE: Treadmill stress and resting SPECT/CT myocardial perfusion imaging and gated SPECT imaging COMPARISON: Comparison is made with the CT scan of the chest of 11/10/2020. FINDINGS: Stress portion was monitored by the cardiology Department. Multiplanar tomographic resting and stress myocardial perfusion images are obtained after intravenous administration of 10.0 mCi and 32.7 mCi of technetium 99m sestamibi respectively. Low-dose CT scan is performed for attenuation correction. Stress and resting SPECT myocardial perfusion imaging reveals no evidence of reversible or irreversible perfusion defect. Left ventricular functional study: Gated wall motion study demonstrates no regional or global wall motion abnormality. Calculated left ventricular ejection fraction is 75%. IMPRESSION: * No scintigraphic evidence of stress induced myocardial ischemia or myocardial infarction. No wallmotion abnormality is identified. Calculated left ventricular ejection fraction is 75%. * Posttest probability of the risk of myocardial ischemia is low. For reference: Low risk for cardiovascular event a-normal or small myocardial perfusion defect with stress <10% total myocardium b-no high risk findings such as severe LV dysfunction c-normal study Intermediate risk for cardiovascular event a-LV resting dysfunction EF 35-50% b-moderate sized perfusion defect without high risk features (10-20% total myocardium) High risk for cardiovascular event a-EF <35% at rest b-severe exercise induced LV dysfunction c-stress induced large perfusion defect >20% myocardium d-multiple moderate sized stress induced perfusion defects e-large, fixed defect with LV dilation f-stress induced moderate perfusion defect with LV dilation * Finalized by Braden Rodrigez MD on 11/10/2024 1:55 [facility]$ Large Joint Injection: knee, L kneeon 08-24-2024 Raj Carolyneovannone, DO 08/24/2024 8:49 AM $ Large Joint Injection: knee, L knee on 08/24/2024 8:48 AM Indications: pain Details: 22 G needle, anterolateral approach Medications: 40 mg triamcinolone acetonide 40 mg/mL Under sterile technique after the knee was prepped approximately 1 cc of Kenalog and 1 cc of lidocaine was injected into the left knee. Patient tolerated the procedure very well. MANUALLY TRANSCRIBED [facility]$ Large Joint Injection: knee, R kneeon 24-84-3911Vkxldvcf Carolyneovannone, DO 08/24/2024 8:49 AM $ Large Joint Injection: knee, R knee on 08/24/2024 8:48 AM Indications: pain Details: 22 G needle, anterolateral approach Medications: 40 mg triamcinolone acetonide 40 mg/mL Under sterile technique after the knee was prepped approximately 1 cc of Kenalog and 1 cc of lidocaine was injected into the right knee. Patient tolerated the procedure very well. Consent was given by the patient. MANUALLY TRANSCRIBED ExpensifyK[facility] PrebleItrybeforeIbuy [facility] HospitalAmbulatory Visit Summaryon 65-42-7128Cgejzeldtz Visit SummaryAmbulatory Visit Summary ELVIS SANTOS Jose Cruz :1950 Visit Date:02/27/2024 Ambulatory Visit Instructions Your Diagnosis Hypogonadism male BPH with urinary obstruction Impotence Other obstructive and reflux uropathy Your Care Team Attending Physician - Wyatt CORTEZ MD Primary Care Physician - SAL SINCLAIR DO This Is Your Medications List sildenafil (sildenafil 20 mg oral tablet) Contact prescribing physician if questions or concerns amlodipine-benazepril (amLODIPine-benazepril 10mg-40 mg Cap) aspirin (aspirin 81 mg oral tablet) atorvastatin hydrochlorothiazide (hydrochlorothiazide 25 mg Tab) metformin Procedures Performed Transrectal biopsy of prostate using ultrasound (US) guidance (10/01/2010), Transrectal biopsy of prostate using ultrasound (US) guidance (11/11/2008), Arthroscopy of knee (08/2007), Arthroscopy of knee (10/2006). Discharge Vitals Temperature (Oral) 37 ???C Heart Rate (Peripheral) 76 Respiratory Rate 18 Blood Pressure 139/76 Height 178 cm Height 70 in Weight 147.7 kg Weight 325.622 lb BMI 46.62 What to do next Scheduled Follow-Up Appointments Friday 9:45 AM EST With: Wyatt CORTEZ MD Where: [facility] [address] [place] [address]- You Need to Schedule the Following Appointments Follow Up with Wyatt CORTEZ MD, URL When: In 1 year Comments: w/PSA and T Level Where: [facility] [address], [place] [address]- Medications What How Much When Instructions Unchanged sildenafil (sildenafil 20 mg oral tablet) 1 Tablets By Mouth As Directed Take 3-5 tabletsby mouth prior to sexual relations [id number] Unchanged amlodipine-benazepril (amLODIPine-benazepril 10mg-40 mg Cap) By Mouth Every day Contact prescribing physician if questions or concerns Unchanged aspirin (aspirin 81 mg oral tablet) By Mouth Every day Contact prescribing physician if questions or concerns Unchanged atorvastatin 10 Milligram By Mouth Every day Contact prescribing physician if questions or concerns Unchanged hydrochlorothiazide (hydrochlorothiazide 25 mg Tab) By Mouth Every day Contact prescribing physician if questions or concerns Unchanged metformin 500 Milligram By Mouth Contact prescribing physician if questions or concerns [id number] [address] [place], [place] [id number] [phone] Allergies No Known Medication Allergies Problems Ongoing - Any problem that you are currently receiving treatment for. Anticoagulated BPH with urinary obstruction Chronic prostatitis Diabetes mellitus Hypertension Hypogonadism male Impotence Nocturia Patient Survey You may receive a survey via text or e-mail asking about your office visit. Please share your experience with us by completing your survey. We appreciate your feedback and thank you for choosing us for your care. Education Materials Erectile Dysfunction Erectile dysfunction (ED) is the inability to get or keep an erection in order to have sexual intercourse. ED is considered a symptom of an underlying disorder and is not considered a disease. ED mayinclude: ??? Inability to get an erection. ??? Lack of enough hardness of the erection to allow penetration. ??? Loss of erection before sex is finished. What are the causes? This condition may be caused by: ??? Physical causes, such as: ? Artery problems. This may include heart disease, high blood pressure, atherosclerosis, and diabetes. ? Hormonal problems, such as low testosterone. ? Obesity. ? Nerve problems. This may include back or pelvic injuries, multiple sclerosis, Parkinson's disease, spinal cord injury, and stroke. ??? Certain medicines, such as: ? Pain relievers. ? Antidepressants. ? Blood pressure medicines and water pills (diuretics). ? Cancer medicines. ? Antihistamines. ? Muscle relaxants. ??? Lifestyle factors, such as: ? Use of drugs such as marijuana, cocaine, or opioids. ? Excessive use of alcohol. ? Smoking. ? Lack of physical activity or exercise. ??? Psychological causes, such as: ? Anxiety or stress. ? Sadness or depression. ? Exhaustion. ? Fear about sexual performance. ? Guilt. What are the signs or symptoms? Symptoms of this condition include: ??? Inability to get an erection. ??? Lack of enough hardness of the erection to allow penetration. ??? Loss of the erection before sex is finished. ??? Sometimes having normal erections, but with frequent unsatisfactory episodes. ??? Low sexual satisfaction in either partner due to erection problems. ??? A curved penis occurring with erection. The curve may cause pain, or the penis may be too curved toallow for intercourse. ??? Never having nighttim (more content not included)...[facility] Noteon [id number] Office/Clinic NoteUrology Office/Clinic Note Chief Complaint 1yr w/ PSA & testosterone HPI Staff 1 year with PSA and testosterone level Dx: BPH with urinary obstruction/LUTS, hypogonadism and impotence Sildenafil 20mg PRN - needs a refill PSA done 01/29/24 - 3.27 Testosterone level 01/29/24 - 239 Dysuria:cdenies Incomplete bladder emptying: denies Hematuria: denies Frequency: every 3-4hrs Urgency: rarely, once in awhile Nocturia: 1x per night Stream: good stream Leaking: denies Post void dripping: denies Wearing pads/ Depends:denies Urge incontinence: denies Stress incontinence: denies Incontinence without Sensory Awareness: denies Abdominal pain: denies Flank pain: denies Sexual complaints: denies History of Present Illness Tests reviewed: reviewed UA, PSA and Testosterone. I have reviewed the previous health record information and history for this patient from . I have reviewed and verified the staff HPI to be accurate for this encounter. There have been no associated fever, chills, flank pain, or blood in the urine. Denies any urinary infections since last encounter. Review of Systems PHQ Score Initial Depression Screen Score: 0 SCORE ROS - Provider Constitutional: denies weight loss, denies hot flashes. Eyes: denies eye problems. Gastrointestinal: denies nausea, denies vomiting. Cardiovascular: denies chest pain or angina. Integumentary: no dryness Musculoskeletal: denies musculoskeletal symptoms. ENMT: denies otolaryngeal symptoms. Respiratory: no shortness of breath. Heme/Lymph: denies easy bleeding tendency, denies easy bruising tendency. Psychiatric: no confusion, no anxiety. Genitourinary: See HPI. Physical Exam Vitals & Measurements T: 37 ???C(Oral) HR: 76(Peripheral) RR: 18 BP: 139/76 HT: 70 in HT: 178 cm WT: 147.7 kg WT: 325.622 lb BMI: 46.62 General Appearance: alert, no distress, well nourished, well developed male. Genitourinary: normal scrotum, normal testes, normal urethra, normal epididymis, normal vas deferens/spermatic cord. Flank Pain: none. Bladder: nonpalpable. Prostate: normal prostate, estimated weight 35 gms, no hard nodule observed. Assessment/Plan 1. Hypogonadism male (E29.1: Testicular hypofunction) Testosterone Levels (range 284-916): 11/30/20 - 510 12/12/21 - 367 11/28/22 - 272 01/29/24 - 239 No longer using Androgel. Discussed recent T level which is low. Steady decrease in T over the last few years. Denies decreased sex drive as long as he uses the Sildenafil. Will continue to monitor T level. -Will order Testosterone Level 2. BPH with urinary obstruction (N40.1: Benign prostatic hyperplasia with lower urinary tract symptoms) S/P TRUS/Bx 2008 and 2010. PSA 11/24/18 - 2.35 11/25/19 - 2.26 11/30/20 - 3.41 12/12/21 - 2.74 11/28/22 - 3.07 01/29/24 - 3.27 Discussed recent PSA level which has increased slightly since prior. Has had a higher PSA level in the past. Will continue to monitor. Not currently taking any BPH meds. UA today negative for blood and infection. Good stream. Feels heempties completely. Denies any bothersome urinary sxs at this time. ALEM:~ 35g, benign Follow up in 1 yr w/labs. All questions/concerns were discussed. Pt to call the office if he encounters any issues prior. Pt acknowledges understanding. Portions of this record may have been created with voice recognition artificial intelligence software, specifically Voice[employer], [employer] and or [employer]. Substitutions may have occurred due to the inherent limitations of voice recognition and artificial intelligence software. -Will order PSA. 3. Impotence (N52.9: Male erectile dysfunction, unspecified) Taking Sildenafil 20mg PRN, three at a time. Works well. Refills sent. Cont med wo changes. Follow-up With When Contact Information YUKO MYERS, Wyatt Crespo, URL In 1 year [facility] [address], [place] [address]- Additional Instructions: w/PSA and T Level Patient Education Erectile Dysfunction I, Mariam Arthur , personally scribed for Dr. Cortez on 02/27/2024 12:04:44. . Documentation recorded by the Mariam kumar, accurately reflects the services(s) I performed and decisions made by me. Problem List/Past Medical History Ongoing Anticoagulated BPH with urinary obstruction Chronic prostatitis Diabetes mellitus Hypertension Hypogonadism male Impotence Nocturia Historical No qualifying data Procedure/Surgical History Transrectal biopsy of prostate using ultrasound (US) guidance (10/01/2010), Transrectal biopsy of prostate using ultrasound (US) guidance (11/11/2008), Arthroscopy of knee (08/2007), Arthroscopy of knee (10/2006). Medications amLODIPine-benazepril 10mg-40 mg Cap, Oral, Daily aspirin 81 mg oral tablet, Oral, Daily atorvastatin, 10 mg, Oral, Daily hydrochlorothiazide 25 mg Tab, O (more content not included)...[facility] HospitalComment on above:Result Comment: Electronically Signed By: Wyatt CORTEZ MD\.br\Date and Time Signed: 02/27/24 12:07 EST\.br\Electronically Co-Signed By: Mariam Arthur\.br\Date and Time Co- Signed: 02/27/24 12:04 ESTA1C with Estimated Average Gluon 51-61-0712D3Z with Estimated Average GluNLiquid Scenarios Other Alanine Aminotransferaseon 27-39-5231JPL [Catalytic activity/Vol]46 U/L16-63 U/[employer] Other Basic Metabolic Panelon 29-20-0388Stfeo gap [Moles/Vol]11.9 mmol/[employer] Other Calcium [Mass/Vol]8.3852919 mg/dL8.5-10.1 mg/dLNort [facility] Other Chloride [Moles/Vol]104 mmol/L98-107 mmol/[employer] Other CO2 [Moles/Vol]31.40855678 mmol/L21.0-32.0 mmol/[employer] Other Creatinine [Mass/Vol]0.60229165 mg/dL0.70-1.30 mg/dL [employer] Other Potassium [Moles/Vol]3.20803743 mmol/L3.5-5.1 mmol/L [facility] Other Urea nitrogen [Mass/Vol]18.2331926 mg/dL7.0-18.0 mg/dL [facility] Other Urea nitrogen/Creatinine [Mass ratio]20.7 mg/mgNocedar county memorial hospital [facility] Other Basic Metabolic Panelsee noteNocedar county memorial hospital [facility] Other Basic Metabolic Kcwot454 mmol/O979-168 mmol/LNLincoln Hospital [facility] Other Basic Metabolic Widfv657 mg/dLCritically tkym14-340 mg/dLBrant [facility] Other Basic Metabolic Panel>60 mL/min/1.73m2>=60 mL/min/1.58g9[facility]a [facility] Other Complete Blood Count and Diffon 47-17-5807Ofvmckqejrvt Ql (Bld)[facility] Other Basophilic stippling LM Ql (Bld)[facility] Other RBC morphology finding Nom (d)[facility] Other Lipid Panelon 38-30-6417Fhjkxjawlmf [Mass/Vol]119 mg/dL<=200 mg/dLBrant [facility] Other Cholesterol in HDL [Mass/Vol]42 mg/dL40-60 mg/dLBrant [facility] Other Cholesterol.total/Cholesterol in HDL [Mass ratio]2.8 {ratio}[employer] Other Triglyceride [Mass/Vol]96 mg/dL<=150 mg/dLBrant [facility] Other Lipid Panel> or = 60 mg/dl - LOW CARDIOVASCULAR RISK <40 mg/dl - HIGH CARDIOVASCULAR RISKNocedar county memorial hospital [facility] Other Lipid PanelSEE BELOWNort [facility] Other Lipid Panel57.8 mg/dLNocedar county memorial hospital [facility] Other Lipid Panel19.2 mg/dLNort [facility] Other TESTOSTERONE, TOTALon 26-82-4157Cvuejpwdniud [Mass/Vol]367 ng/iJPmizsw295-767Enq [facility] HospitalComment on above:Result Comment: Adult male reference interval is based on a population of healthy nonobese males (BMI <30) between 19 and 39 years old. Amanda, et.al. JCEM 2017,102;6656-7576. PMID: [id number].Performed By: #### TESTTOT #### [facility] [address] [place] [address] Dr. Yanely DamianI BRAIN WO CONon 23-08-1631JVG BRAIN WO CONEXAMINATION: MRI BRAIN WO CON, 11/01/2021 12:35 PM [...] Electronically authenticated by: JUANITO QURESHI Date: 2021-11-01 14:12[facility] AUTO DIFFon 89-67-2959WNZN #0.1 103/ulNormal0.0-0.1The [facility] HospitalComment on above:Performed By: #### CBC #### [facility] [address] [address] [address] Yanely DamianBasophils/100 WBC (Bld)0.8 %Normal0.2-2.0The [facility] Comment on above:Performed By: #### CBC #### [facility] [address] [place] [address] Dr. Yanely Gallardo #0.3 103/ulNormal0.0-0.7The [facility] HospitalComment on above: Performed By: #### CBC #### [facility] [address] [place] [address] Dr. Yanely Barrettosinophils/100 WBC (Bld)4.6 %Normal0.9-7.0The [facility] Comment on above:Performed By: #### CBC #### [facility] [address] [place] [address] Dr. Yanely Barrettrythrocyte distribution width (RBC) [Ratio]13.7 %Lolrmr93.0-15.0 The [facility] HospitalComment on above:Performed By: #### CBC #### [facility] [address] [place] [address] Dr. Yanely DamianHematocrit (Bld) [Volume fraction]48.2 %Crqufw97.0-54.0The [facility] HospitalComment on above:Performed By: #### CBC #### [facility] [address] [place] [address] Dr. Yanely DamianHemoglobin (Bld) [Mass/Vol]16.0 g/pURocohc73.0-18.0The [facility] HospitalComment on above:Performed By: #### CBC #### [facility] [address] [place] [address] Dr. Yanely Lee #0.02 10e3/ulNormal0.00-0.03The [facility] HospitalComment on above:Performed By: #### CBC #### [facility] [address] [place] [address] Dr. Yanely Lee %0.3 %Normal0.0-0.5The [facility] HospitalComment on above: Performed By: #### CBC #### [facility] [address] [place] [address] Dr. Yanely Anderson #1.6 103/ulNormal1.2-3.8The [facility] HospitalComment on above:Performed By: #### CBC #### [facility] [address] [place] [address] Dr. Yanely Campbellhocytes/100 WBC (Bld)24.5 %Rxbewg89.5-60.0The [facility] HospitalComselect specialty hospital on above:Performed By: #### CBC #### [facility] [address] [place] [address] Dr. Yanely Saavedra DIFF REQNONormalThe [facility] HospitalComment on above: Performed By: #### CBC #### [facility] [address] [place] [address] Dr. Yanely Garay (RBC) [Entitic mass]29.7 lrOvdlrn37.9-34.0The [facility] HospitalComment on above:Performed By: #### CBC #### [facility] [address] [place] [address] Dr. Yanely Sexton (RBC) [Mass/Vol]33.2 g/oUYfutmv41.9-35.2The [facility] on above:Performed By: #### CBC #### [facility] [address] [place] [address] Dr. Yanely Roberto (RBC) [Entitic vol]89.6 bCSxvjxm34.0-94.0The [facility] HospitalComselect specialty hospital on above:Performed By: #### CBC #### [facility] [address] [place] [address] Dr. Yanely Linares #0.8 103/ulNormal0.3-0.8The [facility] on above:Performed By: #### CBC #### [facility] [address] [place] [address] Dr. Yanely Manningocytes/100 WBC (Bld)11.5 %Normal1.7-12.0The [facility] Comment on above:Performed By: #### CBC #### [facility] [address] [place] [address] Dr. Yanely James #3.8 103/ulNormal1.4-6.5The [facility] HospitalComment on above:Performed By: #### CBC #### [facility] [address] [address] [address] Yanely Stapletonutrophils/100 WBC (Bld)58.3 %Wbedzu50.0-75.0The [facility] HospitalComment on above:Performed By: #### CBC #### [facility] [address] [place] [address] Dr. Yanely DamianPlatelet mean volume (Bld) [Entitic vol]9.0 fLCritically low 9.5-13.5The [facility] HospitalComment on above:Performed By: #### CBC #### [facility] [address] [place] [address] Dr. Yanely DamianPLT235 103/wzQchgjg043-048Dur [facility] HospitalComment on above: Performed By: #### CBC #### [facility] [address] [place] [address] Dr. Yanely DamianRBC5.38 106/ulNormal4.70-6.10The [facility] HospitalComment on above:Performed By: #### CBC #### [facility] [address] [place] [address] Dr. Yanely DamianWBC6.5 103/ulNormal4.0-11.0The [facility] HospitalComment on above: Performed By: #### CBC #### [facility] [address] [place] [address] Dr. Yanely DamianGLYCOHEMOGLOBIN A1Con 63-76-6851EMY RECOMMENDATIONADA THERAPEUTIC TARGET 6.0 - 7.0 ACTION SUGGESTED > 7.0NormalThe [facility] HospitalComment on above:Performed By: #### A1C #### [facility] [address] [place] [address] Dr. Yanely DamianGlucose [Mass/Vol]117 mg/dLFulton County Health CenterComment on above:Performed By: #### A1C #### [facility] [address] [address] [address] Yanely DamianHbA1c (Bld) [Mass fraction]5.7 %Normal<=6.0[facility] Comment on above:Performed By: #### A1C #### [facility] [address] [address] [address] Yanely HatchID PROFILEon 91-57-7203PEDN-HDL RATIO NORMSEE [facility] DaytonComment on above:Result Comment: 3.3 - 4.4 LOW RISK 4.4 - 7.1 AVERAGE RISK 7.1 - 11.0 MODERATE RISK >11.0 HIGH RISKPerformed By: #### LIPID, CMP #### [facility] [address] [address] [address] Yanely DamianCholesterol [Mass/Vol]138 mg/dLNormal<=200[facility] Comment on above:Performed By: #### LIPID, CMP #### [facility] [address] [address] [address] Yanely DamianCholesterol in HDL [Mass/Vol]46 mg/dLFulton County Health Center Comment on above:Performed By: #### LIPID, CMP #### [facility] [address] [address] [address] Yanely Cesaresterol in LDL [Mass/Vol]56.6 mg/dLFulton County Health CenterComment on above:Performed By: #### LIPID, CMP #### [facility] [address] [address] [address] Yanely Cesaresterana.total/Cholesterol in HDL [Mass ratio]3.0 {ratio} NormalMartins Ferry HospitalComment on above:Performed By: #### LIPID, CMP #### [facility] [address] [address] [address] Yanely DamianHDL NORMAL> or = 60 mg/dl - LOW CARDIOVASCULAR RISK <40 mg/dl - HIGH CARDIOVASCULAR RISKRiverview Health Institutement on above:Performed By: #### LIPID, CMP #### [facility] [address] [address] [address] Yanely Burgess CALC NORMALSEE BELOWFulton County Health CenterComselect specialty hospital on above:Result Comment: <100 mg/dl OPTIMAL 100 - 129 mg/dl NEAR OR ABOVE OPTIMAL 130 - 159 mg/dl BORDERLINE HIGH 160 - 189 mg/dl HIGH >190 mg/dl VERY HIGH Performed By: #### LIPID, CMP #### [facility] [address] [place] [address] Dr. Yanely DamianTriglyceride [Mass/Vol]177 mg/dLCritically high<=150The [facility] on above:Performed By: #### LIPID, CMP #### [facility] [address] [place] [address] Dr. Yanely DamianVLDL CALC35.4 mg/dLNoUniversity Hospitals Portage Medical CenterComment on above: Performed By: #### LIPID, CMP #### [facility] [address] [place] [address] Dr. Yanely PeacockALBUMIN, RAND URon 63-59-4813oULQ2.4 mg/LNormal<=30.0The [facility] on above:Performed By: #### MALBR #### [facility] [address] [place] [address] Dr. Yanely DamianPROF 14(COMP METB)on 21-08-7802Nvlerwz [Mass/Vol]4.0 g/dLNormal 3.5-5.0The [facility] on above:Performed By: #### LIPID, CMP #### [facility] [address] [place] [address] Dr. Yanely DamianAlbumin/Globulin [Mass ratio]1.0 {ratio}NormalThe [facility] on above:Performed By: #### LIPID, CMP #### [facility] [address] [place] [address] Dr. Yanely DamianALP [Catalytic activity/Vol]72 U/XHvcnvs74-683Svm [facility] on above:Performed By: #### LIPID, CMP #### [facility] [address] [address] [address] Yanely LoyaT [Catalytic activity/Vol]24 U/CIzdkqt43-78Rxb [facility] HospitalComment on above:Performed By: #### LIPID, CMP #### [facility] [address] [address] [address] Yanely Springeron gap [Moles/Vol]13.5 mmol/LNormalThe [facility] Comment on above:Performed By: #### LIPID, CMP #### [facility] [address] [address] [address] Yanely DamianAST [Catalytic activity/Vol]16 U/LCritically tfu66-10Odf [facility] HospitalComment on above:Performed By: #### LIPID, CMP #### [facility] [address] [address] [address] Yanely DamianBilirubin [Mass/Vol]0.9 mg/dLNormal0.2-1.3TMercy Health [facility] Hospital Comment on above:Performed By: #### LIPID, CMP #### [facility] [address] [address] [address] Yanely DamianCalcium [Mass/Vol]9.3 mg/dLNormal8.4-10.2[facility] Comment on above:Performed By: #### LIPID, CMP #### [facility] [address] [address] [address] Yanely DamianChloride [Moles/Vol]102 mmol/EBsssmn51-544Epy [facility] Comment on above:Performed By: #### LIPID, CMP #### [facility] [address] [address] [address] Yanely DamianCO2 [Moles/Vol]28.0 mmol/FUshrli55.0-30.0The [facility] Comment on above:Performed By: #### LIPID, CMP #### [facility] [address] [address] [address] Yanely DamianCreatinine [Mass/Vol]0.87 mg/dLNormal0.66-1.25The Sp HospitalComment on above:Performed By: #### LIPID, CMP #### [facility] [address] [address] [address] Yanely BarrettGFR-AF BURMESE>60Normal>=60The [facility] HospitalComment on above:Performed By: #### LIPID, CMP #### [facility] [address] [address] [address] Yanely BarrettGFR-NON AF BURMESE>60Normal>=60The [facility] HospitalComment on above:Performed By: #### LIPID, CMP #### [facility] [address] [address] [address] Yanely DamianGlobulin (S) [Mass/Vol]4.0 g/dLNormalThMagruder Memorial HospitalComment on above:Performed By: #### LIPID, CMP #### [facility] [address] [address] [address] Yanely DamianGlucose [Mass/Vol]115 mg/dLCritically dzls49-783Neg [facility] HospitalComment on above:Performed By: #### LIPID, CMP #### [facility] [address] [address] [address] Yanely DamianPotassium [Moles/Vol]3.5 mmol/LNormal3.4-5.0[facility] Comment on above:Performed By: #### LIPID, CMP #### [facility] [address] [address] [address] Yanely DamianProtein [Mass/Vol]8.0 g/dLNormal6.1-8.2The [facility] Comment on above:Performed By: #### LIPID, CMP #### [facility] [address] [address] [address] Yanely DamianSodium [Moles/Vol]140 mmol/GYgeyud844-315CfaMartins Ferry Hospital Comment on above:Performed By: #### LIPID, CMP #### [facility] [address] [address] [address] Yanely DamianUrea nitrogen [Mass/Vol]16.0 mg/dLNormal9.0-20.0The [facility] HospitalComment on above:Performed By: #### LIPID, CMP #### [facility] [address] [place], [place] [address] Dr. Yanely DamianUrea nitrogen/Creatinine [Mass ratio]18.4 mg/mgNoUniversity Hospitals Portage Medical CenterComment on above:Performed By: #### LIPID, CMP #### [facility] [address] [place], [place] [address] Dr. Yanely Damian Vital Signs Date TimeVital SignValuePerforming HrisxfeosEmxbngoh19-33-5923 10:18-0400Body .8 cmBenjamin Ball DO Work Phone: [phone] [place], [place] 4620210-16-2025 10:18-0400 Body mass index (BMI) [Ratio]42.7 kg/r5Mcsovxqd Ball DO Work Phone: [phone] [place], [place] 4620210-16-2025 10:18-0400 Body lgldir859.17 kgBenjamin Ball DO Work Phone: [phone] [place], [place] 4620210-16-2025 10:18-0400 Diastolic blood rdhjcply95 mm[Hg]Sal Ball DO Work Phone: [phone] [place], [place] 4620210-16-2025 10:18-0400 Heart rate78 /minBenjamin Ball DO Work Phone: [phone] [place], [place] 4620210-16-2025 10:18-0400 Respiratory rate12 /minBenjamin Ball DO Work Phone: [phone] [place], [place] 4620210-16-2025 10:18-0400 SaO2% (BldA) [Mass fraction]97 %Sal Ball DO Work Phone: [phone] [place], [place] 4620210-16-2025 10:18-0400 Systolic blood mecbifxx363 mm[Hg]Sal Ball DO Work Phone: [phone] [place], [place] 4620205-13-2025 08:22-0400 Body ameqzz388.8 cmRiccardo Giovannone DO Work Phone: [facility]05-13-2025 08:22-0400Body mass index (BMI) [Ratio]42.47 kg/d7Bkyimwixjamaica Ruiz DO Work Phone: [facility]05-13-2025 08:22-0400Body wnjwob659.26 kgRaj Ruiz DO Work Phone: [facility]05-06-2025 14:10-0400Body .8 cm[facility]05-[facility]-2025 14:10-0400Body mass index (BMI) [Ratio]43.9 kg/v8UscgbbqwnHenry County Hospital05-06-2025 14:10-0400Body nehgbh324.91 kgHenry County Hospital05-06-2025 14:10-0400Diastolic blood mm[Hg][facility] 08-17-2024 14:10-0400Heart rate80 /[facility] 08-17-2024 14:10-0400Respiratory rate12 /[facility] 08-17-2024 14:10-0400Systolic blood caqvlofl264 mm[Hg][facility]04-24-2025 14:09-0400Body cthjda967.8 [facility]20[facility] 14:09-0400Body mass index (BMI) [Ratio]42.47 kg/j6IfgbbnMonroe Community Hospital04-24-2025 14:09-0400Body qobvuu107.26 kgMonroe Community Hospital11-15-2024 10:56-0500Blood Pressure LocationPashaniajose cruz CORTEZ [facility]11-15-2024 10:56-0500Body qwhijkhaajm00.6 [degF]Wyatt CORTEZ [facility]11-15-2024 10:56-0500Diastolic blood rvwuckvl86 mm[Hg]Wyatt CORTEZ [facility]11-15-2024 10:56-0500Heart rate76 /minPatrick CORTEZ [facility]11-15-2024 10:56-0500Respiratory rate18 /minPatrick CORTEZ [facility]11-15-2024 10:56-0500Systolic blood odepgxna768 mm[Hg]Wyatt CORTEZ [facility]06-20-2024 09:52-0400Body jgpovm730.8 cmHenry County Hospital06-20-2024 09:52-0400Body mass index (BMI) [Ratio]47 kg/l9KrqhbmpyoHenry County Hospital06-20-2024 09:52-0400Body ueapje451.77 kgHenry County Hospital06-20-2024 09:52-0400Diastolic blood cdhvtniy15 mm[Hg] [facility]06-20-2024 09:52-0400Heart rate76 /[facility]06-20-2024 09:52-0400Respiratory rate12 /[facility]06-20-2024 09:52-0400Systolic blood mm[Hg] [facility]10-30-2023 12:33-0400Blood Pressure Location Wyatt CORTEZ [facility]10-30-2023 12:33-0400Diastolic blood rucjormc53 mm[Hg]Wyatt CORTEZ [facility]10-30-2023 12:33-0400Heart rate73 /minPatrick CORTEZ [facility]10-30-2023 12:33-0400Respiratory rate16 /minPatrick CORTEZ [facility]10-30-2023 12:33-0400Systolic blood ceksesqy545 mm[Hg]Wyatt CORTEZ [facility]05-18-2023 09:30-0400Body .88 cmBenjamin Ball Other [facility] Other 05-18-2023 09:30-0400Body mass index (BMI) [Ratio] 44.91 kg/l2Hurnbmgf Ball Other [facility] Other 05-18-2023 09:30-0400Body buaemg392.23 kgBenjamin Ball Other [facility] Other 05-18-2023 09:30-0400Diastolic blood mm[Hg] Sal Ball Other [facility] Other 05-18-2023 09:30-0400Respiratory rate12 /minBenjamin Ball Other [employer] Other 05-18-2023 09:30-0400Systolic blood wqtiyhxv425 mm[Hg] Sal Ball Other [facility] Other 09-09-2022 09:38-0400Blood Pressure LocationPakelley CORTEZ [facility]09-09-2022 09:38-0400Diastolic blood ecxleomx28 mm[Hg]Wyatt CORTEZ [facility]09-09-2022 09:38-0400Heart rate82 /minWyatt CORTEZ [facility]09-09-2022 09:38-0400Respiratory rate16 /minWyatt CORTEZ [facility]09-09-2022 09:38-0400Systolic blood emkkavrp905 mm[Hg]Wyatt YUKO [facility] Encounters Encounter DateEncounter TypeCare ProviderFacilityStart: 01-44-3130uzybwdpsjq Wyatt CORTEZFacility:JOEL ManleyueStart: 01-27-2025 End: 35-30-0757vezkwuzksmAvzzoins Ball DO Work Phone: [facility] Work Phone: Start: 01-27-2025 End: 26-84-6314Eoaszgm encounter procedureBenviviana Ball DO-[facility] Work Phone: Start: 11-10-2024 End: 64-46-6926rtyocfqwelZWLBKJWQ E BALLProMedica Wendy Garza HospitalStart: 11-10-2024 End: 74-17-2504ykfwojwbiiFHNRZIYN E BALLProMedica [facility] Lisa Garza HospitalStart: 09-21-2024 End: 24-80-7708Zbjzjfczby and management of inpatientNASSER HAJARProMedica Leonard HospitalStart: 09-14-2024 End: 67-23-0771djdgtlchhzSOHVLMAB E BALLProMedica Leonard HospitalStart: 08-24-2024 End: 74-17-4399Oszgoq outpatient new 20 minutesRiccardo Dannye DO Work Phone: [facility] Orthopaedic SurgeryComment on above:Primary osteoarthritis of right knee (Primary Dx); Primary osteoarthritis of left kneeStart: 08-24-2024 End: 08-87-0974svrvrpbxcdCXHDNZCB [facility]ITALMAJOShel[facility] Start: 08-17-2024 End: 79-85-7463fypuryfjtdWsfsjbskuFisher-Titus [facility] Work Phone: Start: 08-17-2024 End: 26-42-7593Nuqwvrp encounter procedureCritical Access Hospital Physician GroupEast [facility] Regional Hospital Work Phone: Start: 08-05-2024 End: 21-57-5665Kptrc [facility] Department of [facility] Hospitaltart: 02-27-2024 End: 55-31-3584ppitwmemhzHslntkn R WATERSFacility:EU BellevueStart: 02-27-2024 End: 24-16-9983Lyymuwi encounter procedureWyatt CORTEZ [facility] start: 10-02-2023 End: 83-06-2925acpljuxfobDekxsnrtnFisher-[facility]itus Medical Center Work Phone: Start: 10-02-2023 End: 24-98-5791Qtmnnfn encounter procedureCritical Access Hospital Physician GroupEast [facility] Regional Hospital Work Phone: Start: 07-28-2023 End: 11-40-7873LsdtwoDvzuej Hajar MD Work Phone: [facility] Digestive HealthcareComment on above:Tubular adenoma (Primary Dx)Start: 07-23-2023 End: 83-61-2071KtneocJeremy Ledezma Physicians Digestive HealthcareComment on above:Tubular adenoma (Primary Dx)Start: 02-10-2023 End: 23-35-5152Ifqqrfk encounter procedureWyatt CORTEZ [facility] start: 08-29-2022 End: 67-18-2076ownsfczixsBcfklaqx Ball Other [facility] Other Start: 31-77-9763Ckvofsn encounter procedureSal [facility] ClinicStart: 12-21-2021 End: 20-68-3208Yfhdnwx encounter procedurePakelley Crespo [employer] [facility] start: 12-12-2021 End: 95-46-8205rusixykptjGM BENJAMIN YAHIRFacility:K7Gelbu: 11-01-2021 End: 96-98-6053aslreneubxEC BENJAMIN YAHIRFacility:J5Xvdep: 12-28-2020 End: 93-75-7451hqpzjmekulRU BENJAMIN BALLFacility:H1 Procedures DateProcedureProcedure DetailPerforming ClinicianStart: 91-78-8818Yqmedvmiwgopqd aspir&/inj major jt/bursa w/o usRiccardo Giovannone DO Work Phone: Start: 54-46-1627Dvixwyglzqmnen aspir&/inj major jt/bursa w/o usRiccardo Giovannone DO Work Phone: Start: 56-77-3687AUN screeningDR SAL SINCLAIRComment on above:Performed By: #### PSAD #### [facility] [address] [place] [address] Dr. Yanely DamianStart: 80-46-8512Nyqiyttdyrc biopsy of prostate using ultrasound guidanceChief Trunk Start: 23-01-9125Edvzbepobia biopsy of prostate using ultrasound guidanceChief Trunk Start: 72-83-9174Ekpnciegeyx of kneeChief Trunk Start: 67-28-2153Oqskbbsgsbu of kneeChief Trunk Plan of Treatment DateCare ActivityDetailAuthorStart: 42-95-3511Opmcn BMI ScreeningAdult BMI ScreeningProMemorial Health System Selby General Hospitalca Health SystemStart: 89-74-6002Dyeumqb ScreeningTobacco ScreeningProMemorial Health System Selby General Hospitalca Health SystemStart: 85-38-1749Zanipmqzu vaccinationInfluenza VaccineProMedica Health SystemStart: 09-21-2024 End: 96-44-0279Puddsgefc to same day surgery flereh0109/21/2024 3:00 PM EDT - 09/21/2024 3:[address] [facility] [address] [facility] [place] [phone] Venkatesh Malone MD [address] [facility], [address] [address] COLONOSCOPY DIAGNOSTIC / SCREENINGSt. [facility] - EndoscopyComment on above:COLONOSCOPY DIAGNOSTIC / SCREENINGStart: 09-21-2024 End: 09-84-1567UxciyeacioyKURWRTMJGER DIAGNOSTIC / SCREENING Tubular adenoma D12.6 09/21/2024 3:00 PM EDUniversity Hospitals [facility] SystemStart: 76-68-9308Mdlxtapqsd hospital visit by ntydretnc04/10/2025 3:00 PM EDT Hospital Encounter [facility] [address] [facility] [address] [place] [phone] Venkatesh Malone MD [address] [facility] [place] [address] [facility] Start: 30-41-5936Cypup BMI ScreeningAdult BMI ScreeningUC Health System Start: 59-04-1674Pvityug ScreeningTobacco ScreeningUC Health SystemStart: 09-14-2024 End: 50-80-9534Sfsoqxk encounter ulmrtydjx86/03/2025 1:[address] [facility] Pre and Post OP [address] [facility] [address] [place] [phone] [facility] Pre and Post OPStart: 08-24-2024 End: 89-39-5253Hbcwopa encounter twnjcjiuj88/13/2025 8:30 AM EDT Office Visit [facility] [address] [place] [address] [place] [address] Raj Ruiz DO [address] [place] [address] [place] [address] [facility] Start: 03-41-5952ZNOPZ-19 Vaccine ( season)COVID-19 Vaccine ( season)[facility] SystemStart: 02-50-3537Zvncb BMI ScreeningAdult BMI ScreeningProTrinity Health System SystemStart: 09-10-4215YMGZQ-19 Vaccine ( season)COVID-19 Vaccine ()[facility] SystemStart: 16-79-5042Qklhlproq vaccinationInfluenza VaccineUC Health SystemStart: 69-59-3651Mjfkzxz ScreeningTobacco ScreeningProTrinity Health System SystemStart: 09-16-2023 End: 86-71-1281Kfkthjpek to same day surgery kqtxce2909/16/2023 8:30 AM EDT - 09/16/2023 9:[address] [facility] [address] [place] [address], [address] [place] [phone] Venkatesh Malone MD [address] [place] [address], [address] [place] [address] COLONOSCOPY DIAGNOSTIC / SCREENING [89838(CPT )][facility] - EndoscopyComment on above:COLONOSCOPY DIAGNOSTIC / SCREENING [50175 (CPT )] Start: 09-16-2023 End: 65-57-4132Clcflmyzqua flx dx w/collj spec when pfrmdCOLONOSCOPY DIAGNOSTIC / SCREENING Tubular adenoma 09/16/2023 8:30 AM EDTWELLNESS ENDOSCOPYStart: 43-89-1202Lpcscvhyuu hospital visit by /04/2024 8:30 AM EDT Hospital Encounter [facility] [address] [place] [address], [address] [place] [phone] Venkatesh Malone MD [address] [place] [address], [address] [place] [phone] [facility] EndoscopyStart: 52-11-8889MGSZA-19 Vaccine ( season)COVID-19 Vaccine ( season)[facility] SystemStart: 10-21-2022 Administration of varicella zoster vaccineZoster (Shingles) Vaccine (2 of 2) [facility] SystemStart: 72-17-4726Rawn Risk ScreeningFall Risk Screening [facility] SystemStart: 68-77-4498JXuI,Tdap and Td Vaccines (1 - Tdap) DTaP,Tdap and Td Vaccines (1 - Tdap)[facility] SystemStart: 1969 Adult BMI Follow Up PlanAdult BMI Follow Up PlanUC Health SystemStart: 47-94-2688Xenfdzun foot examinationDiabetic Foot ExamUC Health System Start: 88-89-7608Mqwioftmjr ScreeningDepression ScreeningUC Health System Start: 19-25-3487Sglhhqgt screeningDiabetic Ophthalmology ExamUC Health SystemStart: 02-05-1952Medicare Annual Wellness VisitMedicare Annual Wellness VisitAccess Hospital [facility] End: 84-57-3818DgtjeclthslWjhixagarxk GI Routine Tubular adenoma 1 Occurrences starting 07/23/2023 until 07/22/2024[employer] Work Phone: Comment on above:1 Occurrences starting 07/23/2023 until 07/22/2024omprehensive metabolic 2000 panel - Serum or PlasmaHenry County HospitalMicroalbumin [Mass/volume] in UrineUniversity of Miami Hospital Immunizations Immunization DateImmunizationNotesCare WiejpjvlUouxcqep58-82-5231ihuddtzwz, high dose seasonal, preservative-freeBenjamin Ball DO Work Phone: [facility]11-01-2024influenza virus vaccine, unspecified formulationRiccardo Giovannone DO Work Phone: [facility] HospitalYeelinkShspgo49-61-9464xyoafuxnd virus vaccine, unspecified formulationBrokarina Jose CMAUC Health Gizxxu94-33-8838 zoster vaccine, unspecified formulationTherantoinette Cruz [facility] 64-00-5018prkciazlv virus vaccine, unspecified formulationThereslyndsay Cruz RN [facility] Xbywjj51-47-1071UWMAZ-08 mRNA, Comirnathaja (Pfizer)[facility]03-05-2021SARS-CoV-2 (COVID-19) Ad26 vaccine, recombinant Wyatt CORTEZ [facility]02-12-2021SARS-CoV-2 (COVID-19) Ad26 vaccine, recombinantWyatt CORTEZ [facility]11-16-2020pneumococcal polysaccharide vaccine, 23 valentBenjamin Ball Other [facility] Payers DatePayer CategoryPayerPolicy [id number] Care Other (unspecified)[facility] Member Subscriber Plan / Payer (Effective 2020-Present) Name: Elvis Santos Relation to Subscriber: Self Name: Elvis Santos Payer ID: [id number] (NAIC) Group ID: Not on file Type: Not on file Address: [facility] [address] [place] [id number] Health InsuranceC[facility] AARP SUPPLEMENT [id number] 2020-Present [phone] [facility] [address] [place] [address] [id number] [id number] [id number] [id number] [id number] 1960Unknown [id number] 2.16.840.1.919794.3.57[id number] 2.16840.1.842109.3.57[id number] 2.840.1.034859.3.57[id number] 2.840.1.173314.3.57[id number] 2.840.1.339551.3.57[id number] 2.16840.1.998310.3.57[id number] 2.16840.1.732173.3.57[id number] 2.840.1.813955.3.57[id number] 2.16840.1.862865.3.57[id number] 2.16840.1.390241.3.57[id number] 2.16840.1.870590.3.57[id number] 2.16.840.1.68[id number] Social History DateTypeDetailFacilityStart: 12-21-2021 End: 81-05-5602Ravfteb smoking statusNever smoked tobacco (finding)[facility] Toledotart: 11-18-2022 End: 17-23-7654Hyk Assigned At [facility] Tobacco smoking statusNeverExecutive [facility] of [facility] - Dublintart: 48-66-4392Ijr Assigned At [facility] Hospitaltart: 36-27-0388Bshwghu use and exposureSmokeless tobacco non-userAccess Hospital [facility] Health SystemStart: 11-18-2022 End: 13-42-1932Urhtoarmi beverage intakeCurrent drinker of alcohol (finding) [facility]a [facility] SystemStart: 11-18-2022 End: 88-80-9654Tyjitei of Social functionAccess Hospital Dayton Health SystemStart: 03-10-4450Vebpshn Uybrrph0h weekUC Health SystemStart: 66-63-8497Yqn assigned at birthNot on fileUC Health SystemStart: 46-06-1949Dvhzlyj Comment2-3 drinks a weekUC Health SystemStart: 11-10-2020 End: 59-34-6638OnxKwuq (finding)UC Health SystemTobacco smoking status NHISUnknown if ever smokedBlanchard Valley Health System Work Phone: Goals DatePatient GoalDesired Activity/StatePersonal health goal Functional Status QavxOhgqkqnlknMylelaBnkkioqx00-97-4520Fqtrtxrfbx StatusN/AExecutive [facility] of [facility]10-30-2023Functional StatusN/AExec[facility]09-09-2022Functional StatusN/A [facility] Clinical Notes 12-21-2021 to 08-24-2024 Note Date & CateGxylHharpeyp82-80-8484 History of Present illness Narrative* Raj Ruiz, - 08/24/2024 8:30 AM EDTAssociated Order(s): $ Large Joint Injection: knee, R knee; $ Large Joint Injection: knee, L knee Post-Procedure Diagnose(s): Primary osteoarthritis of left knee; Primary osteoarthritis of right knee Images from the original note were not included. 08/24/2024 CC: Chief Complaint Patient presents with Right Knee - Pain HPI: Elvis Santos is a 74 y.o. male. The patient's current work status: retired. Pt states that he is having pain in both knees for 2 years with no injury but pain has gotten worsethe last 2 months. The right knee is worse than the left. Pain is in the entire right knee, there is no visible swelling. He states that he was seen in the [facility] on 04/08/24 where x-rays were taken and he was given a right knee injection which offered full relief until early July. Hewould like another injection today. He is also complaining of the left knee and has had no previousinjections to the left knee. He did have previous meniscus repair to both knees 20+ years ago. There is stiffness in the knees, his ROM is good but a bit tight with extension. He is taking Aleve as needed for pain relief. Patient does complain of stiffness when he gets up from a seated position. Denies any catching locking or giving way. He has prior injection that he had in March gave him about 3 months' worth of relief. Social History Socioeconomic History Marital status: Spouse name: Not on file Number of children: Not on file Years of education: Not on file Highest education level: Not on file Occupational History Not on file Tobacco Use Smoking status: Never Smokeless tobacco: Never Vaping Use Vaping status: Never Used Substance and Sexual Activity Alcohol use: Yes Comment: 2-3 drinks a week Drug use: Never Sexual activity: Not on file Other Topics Concern Not on file Social History Narrative Not on file Social Drivers of Health Financial Resource Strain: Not on file Food Insecurity: Not on file Transportation Needs: Not on file Physical Activity: Not on file Stress: Not on file Social Connections: Not on file Interpersonal Safety: Not on file Housing Instability: Not on file Past Surgical History: Procedure Laterality Date COLONOSCOPY COLONOSCOPY BIOPSY N/A 09/16/2023 Performed by Venkatesh Malone MD at [facility] COLONOSCOPY ENDOSCOPIC MUCOSAL RESECTION N/A 11/18/2022 Performed by Venkatesh Malone MD at [facility] COLONOSCOPY POLYPECTOMY 09/16/2023 Performed by Venkatesh Malone MD at [facility] KNEE ARTHROSCOPY Bilateral meniscus TONSILLECTOMY Current Outpatient Medications Medication Sig Dispense Refill amLODIPine-benazepril (LOTREL) 10-40 mg per capsule Take by mouth in the morning. aspirin 81 mg Take 1 tablet (81 mg total) by mouth in the morning. atorvastatin (LIPITOR) 10 mg tablet Take 1 tablet (10 mg total) by mouth in the morning. (Patient not taking: Reported on 08/05/2024) bisacodyL (DULCOLAX) 5 mg EC tablet Take 1 tablet (5 mg total) by mouth daily as needed for constipation. 2 tablet 0 gabapentin (NEURONTIN) 100 mg capsule Take 1 capsule (100 mg total) by mouth. hydroCHLOROthiazide (HYDRODIURIL) 25 mg tablet Take 1 tablet (25 mg total) by mouth daily. metFORMIN (GLUCOPHAGE) 500 mg tablet Take 1 tablet (500 mg total) by mouth in the morning. iwqkxjxv-glbv-IM-calcium &mins (THERAGRAN-M) 9 mg iron-400 mcg tablet Take 1 tablet by mouth inthe morning. OZEMPIC 1 mg/dose (4 mg/3 mL) pen injector 1 MG (0.75 ML) SUBCUTANEOUSLY EVERY WEEK FOR 28 DAYS FOR4 WEEKS polyethylene glycol (GoLYTELY) 236-22.74-6.74 -5.86 gram solution Please follow office colonoscopy instructions. 4000 mL 0 No current facility-administered medications for this visit. No Known Allergies Past Medical History: Diagnosis Date Diabetes mellitus type 2, controlled ([facility]) Hyperlipidemia Hypertension Ht 177.8 cm (5' 10 ) Wt 134.3 kg (296 lb) BMI 42.47 kg/m Body mass index is 42.47 kg/m . EXAM: Vitals: 08/24/24 0822 Weight: 134.3 kg (296 lb) Height: 177.8 cm (5' 10 ) No gross deformity. No clinical signs of infection. Examination reveals mild swelling to both knees. Slight varus alignment is also noted. Range of motion is 7-100 degrees of flexion bilaterally. There is medial and lateral joint line tenderness more pronounced on the right than it is on the left. Good hip range of motion without pain or discomfort. NEURO: Oriented, alert, appears in no acute distress. Grossly normal motor and sensory function. Vascular exam is grossly normal. X-ray report reviewed multiple views right knee April 08, 2024: Moderate degenerative changes are noted with no acute process seen. ASSESSMENT: 1.Moderate degenerative arthritis right knee. 2. Primary osteoarthritis left knee. PLAN: We discussed the diagnosis and clinical findings at length along with further treatment options. The patient states he wishes to undergo an injection to both knees since it has helped him in the past at least on the right. This was performed today. He will continue to work on home exercises and consider weight loss as well. I will see him now in follow-up on an as-needed basis. $ Large Joint Injection: knee, R knee on 08/24/2024 8:48 AM Indications: pain Details: 22 G needle, anterolateral approach Medications: 40 mg triamcinolone acetonide 40 mg/mL Under sterile technique after the knee was prepped approximately 1 cc of Kenalog and 1 cc of lidocaine was injected into the right knee. Patient tolerated the procedure very well. Consent was given by the patient. $ Large Joint Injection: knee, L knee on 08/24/2024 8:48 AM Indications: pain Details: 22 G needle, anterolateral approach Medications: 40 mg triamcinolone acetonide 40 mg/mL Under sterile technique after the knee was prepped approximately 1 cc of Kenalog and 1 cc of lidocaine was injected into the left knee. Patient tolerated the procedure very well. Medication List Accurate as of August 24, 2024 8:29 AM. If you have any questions, ask your nurse or doctor. CONTINUE taking these medications Instructions Last Dose Given Next Dose Due amLODIPine-benazepril 10-40 mg per capsule Commonly known as: LOTREL Take by mouth in the morning. aspirin 81 mg Take 1 tablet (81 mg total) by mouth in the morning. atorvastatin 10 mg tablet Commonly known as: LIPITOR Take 1 tablet (10 mg total) by mouth in the morning. bisacodyL 5 mg EC tablet Commonly known as: DULCOLAX Take 1 tablet (5 mg total) by mouth daily as needed for constipation. gabapentin 100 mg capsule Commonly known as: NEURONTIN Take 1 capsule (100 mg total) by mouth. hydroCHLOROthiazide 25 mg tablet Commonly known as: HYDRODIURIL Take 1 tablet (25 mg total) by mouth daily. metFORMIN 500 mg tablet Commonly known as: GLUCOPHAGE Take 1 tablet (500 mg total) by mouth in the morning. pheupujy-ieuw-VW-calcium &mins 9 mg iron-400 mcg tablet Commonly known as: THERAGRAN-M Take 1 tablet by mouth in the morning. OZEMPIC 1 mg/dose (4 mg/3 mL) pen injector Generic drug: semaglutide 1 MG (0.75 ML) SUBCUTANEOUSLY EVERY WEEK FOR 28 DAYS FOR 4 WEEKS polyethylene glycol 236-22.74-6.74 -5.86 gram solution Commonly known as: GoLYTELY Please follow office colonoscopy instructions. MELI OSEGUERA CMA documented in this encounterC[facility] History of Present illness Narrative* Amber Jose CMA - 08/05/2024 2:07 PM EDT Patients chart updated and reviewed documented in this [facility]11-15-2024 Hospital Discharge instructions Patient Education 02/27/2024 11:58:26 Erectile Dysfunction Erectile Dysfunction Erectile dysfunction (ED) is the inability to get or keep an erection in order to have sexual intercourse. ED is considered a symptom of an underlying disorder and is not considered a disease. ED mayinclude: Inability to get an erection. Lack of [...] back or pelvic injuries, multiple sclerosis, Parkinson's disease,spinal cord injury, and stroke. Certain medicines, such [...] or the penis may be too curved toallow for intercourse. Never having nighttime or morning [...] penis. During this procedure, a blood vessel froma different part of the body is placed into the penis to allow blood to flow around (bypass) damaged or blocked blood vessels. Lifestyle changes, such as exercising more, losing weight, and quitting smoking. Follow these instructions at home: Medicines Take pshk-izj-oipkato and prescription medicines only as told by your health care provider. Do not increase the dosage without first discussing it with your health care provider. If you are using self-injections, do injections as directed by your health care provider. Make sureyou avoid any veins that are on the surface of the penis. After giving an injection, apply pressureto the injection site for 5 minutes. Talk [...] you need help quitting, ask your health careprovider. Before using a vacuum pump, read the instructions that come with the pump and discuss any questionswith your health care provider. Keep all follow-up [...] provider. Document Revised: 06/27/2021 Document Reviewed: 06/27/2021 [employer] Patient Education 2023 hereO. Follow Up Care 02/10/2023 13:18:38 With:UYKO MYERS, Wyatt Crespo, URL Address: [facility] [address] , [place] [address]- When:Within 1 Year(s) Comments:w/PSA and T Level [facility] 11-15-2024 NotePatient [facility] Erectile Dysfunction Erectile dysfunction (ED) is the inability to get or keep an erection in order to have sexual intercourse. ED is considered a symptom of an underlying disorder and is not considered a disease. ED mayinclude: ??? Inability to get an erection. ??? Lack of enough hardness of the erection to allow penetration. ??? Loss of erection before sex is finished. What are the causes? This condition may be caused by: ??? Physical causes, such as: ? Artery problems. This may include heart disease, high blood pressure, atherosclerosis, and diabetes. ? Hormonal problems, such as low testosterone. ? Obesity. ? Nerve problems. This may include back or pelvic injuries, multiple sclerosis, Parkinson's disease, spinal cord injury, and stroke. ??? Certain medicines, such as: ? Pain relievers. ? Antidepressants. ? Blood pressure medicines and water pills (diuretics). ? Cancer medicines. ? Antihistamines. ? Muscle relaxants. ??? Lifestyle factors, such as: ? Use of drugs such as marijuana, cocaine, or opioids. ? Excessive use of alcohol. ? Smoking. ? Lack of physical activity or exercise. ??? Psychological causes, such as: ? Anxiety or stress. ? Sadness or depression. ? Exhaustion. ? Fear about sexual performance. ? Guilt. What are the signs or symptoms? Symptoms of this condition include: ??? Inability to get an erection. ??? Lack of enough hardness of the erection to allow penetration. ??? Loss of the erection before sex is finished. ??? Sometimes having normal erections, but with frequent unsatisfactory episodes. ??? Low sexual satisfaction in either partner due to erection problems. ??? A curved penis occurring with erection. The curve may cause pain, or the penis may be too curved to allow for intercourse. ??? Never having nighttime or morning erections. How is this diagnosed? This condition is often diagnosed by: ??? Performing a physical exam to find other diseases or specific problems with the penis. ??? Asking you detailed questions about the problem. ??? Doing tests, such as: ? Blood tests to check for diabetes mellitus or high cholesterol, or to measure hormone levels. ? Other tests to check for underlying health conditions. ? An ultrasound exam to check for scarring. ? A test to check blood flow to the penis. ??? Doing a sleep study at home to measure nighttime erections. How is this treated? This condition may be treated by: ??? Medicines, such as: ? Medicine taken by [...] The tube is inserted into the opening atthe tip of the penis, which is the opening of the urethra. A tiny pellet of medicine is put in the urethra. The pellet dissolves and enhances erectile function. This is also called MUSE (medicated urethral system for erections) therapy. ??? Vacuum pump. This is a pump with a ring on it. The pump and ring are placed on the penis and used to create pressure that helps the penis become erect. ??? Penile implant surgery. In this procedure, you [...] position and become straight for sexual intercourse. ??? Blood vessel surgery to improve blood flow to the penis. During this procedure, a blood vessel from a different part of the body is placed into the penis to allow blood to flow around (bypass) damaged or blocked blood vessels. ??? Lifestyle changes, such as exercising more, losing weight, and quitting smoking. Follow these instructions at home: Medicines ??? Take jart-tqr-ngpzffp and prescription medicines only as told by your health care provider. Do not increase the dosage without first discussing it with your health care provider. ??? If you are using self-injections, do injections as directed by your health care provider. Make sure you avoid any veins that are on the surface of the penis. After giving an injection, apply pressure to the injection site for 5 minutes. ??? Talk to your health care provider about how to prevent headaches while taking ED medicines. These medicines may cause a sudden headache due to the increase in blood flow in your body. General instructions ??? Exercise regularly, as directed by your health care provider. Work with your health care provider to lose weight, if needed. ??? Do not u (more content not included)...[facility]04-10-2024 Miscellaneous Notes* Telephone Encounter - Lubna Mayo CMA - 07/23/2023 10:34 AM EDT 1st Attempt Our office received a colonoscopy request from patient. Breadman called. No answer. Left message. Please contact our office to update chart and Insurance [phone] opt 1 FYI Provider: Dr Malone - Last colon: 11/18/2022 - Dx: Sessile serrated Tubulovillous Adenoma Tubular Adenoma - Recall: 6 months - ASA 2 / [facility] / Mod Sed Thank You * Telephone Encounter - Stephany Cruz RN - 07/23/2023 10:34 AM EDT Patient called, chart updated Please schedule BMI 46 weight 325 pounds Please schedule with Dr Malone at [facility] ASA 2 Mod sed * Telephone Encounter - Anna Glass - 07/23/2023 10:34 AM EDT Colon/Maribell 09/16/2023 8:30a ASA2, MOD SED, [facility] Golytely ordered. Instructions mailed to pt//07/28/2023/cac [facility] [id number] Telephone encounter Note* Telephone Encounter - Lubna Mayo CMA - 07/23/2023 10:34 AM EDT 1st Attempt Our office received a colonoscopy request from patient. Breadman called. No answer. Left message. Please contact our office to update chart and Insurance [phone] opt 1 FYI Provider: Dr Malone - Last colon: 11/18/2022 - Dx: Sessile serrated Tubulovillous Adenoma Tubular Adenoma - Recall: 6 months - ASA 2 / [facility] / Mod Sed Thank You [facility] [id number] Telephone encounter Note* Telephone Encounter - Stephany Cruz RN - 07/23/2023 10:34 AM EDT Patient called, chart updated Please schedule BMI 46 weight 325 pounds Please schedule with Dr Malone at [facility] ASA 2 [facility] [id number] Telephone encounter Note* Telephone Encounter - Annajean Steinerllo - 07/23/2023 10:34 AM EDT Cole/Jesus Albertor 09/16/2023 8:30a ASA2, MOD SED, [facility] Golytely ordered. Instructions mailed to pt//07/28/2023/[facility] [id number] Hospital Discharge instructions Patient Education 02/10/2023 13:09:36 Erectile Dysfunction Erectile Dysfunction Erectile dysfunction (ED) is the inability to get or keep an erection in order to have sexual intercourse. ED is considered a symptom of an underlying disorder and is not considered a disease. ED mayinclude: Inability to get an erection. Lack of [...] back or pelvic injuries, multiple sclerosis, Parkinson's disease,spinal cord injury, and stroke. Certain medicines, such [...] or the penis may be too curved toallow for intercourse. Never having nighttime or morning [...] penis. During this procedure, a blood vessel froma different part of the body is placed into the penis to allow blood to flow around (bypass) damaged or blocked blood vessels. Lifestyle changes, such as exercising more, losing weight, and quitting smoking. Follow these instructions at home: Medicines Take sjjx-tgs-wiyxttd and prescription medicines only as told by your health care provider. Do not increase the dosage without first discussing it with your health care provider. If you are using self-injections, do injections as directed by your health care provider. Make sureyou avoid any veins that are on the surface of the penis. After giving an injection, apply pressureto the injection site for 5 minutes. Talk [...] you need help quitting, ask your health careprovider. Before using a vacuum pump, read the instructions that come with the pump and discuss any questionswith your health care provider. Keep all follow-up [...] provider. Document Revised: 06/27/2021 Document Reviewed: 06/27/2021 [employer] Patient Education 2022 hereO. Follow Up Care 12/21/2021 10:15:41 With:YUKO MYERS, Wyatt Crespo, URL Address: [facility] [address], [place] [address]- [phone] When: Unknown Comments:1 yr w/ PSA and T levels [facility] 05-18-2023 Evaluation note* Encounter Date Diagnosis Assessment Notes Treatment Notes Treatment Clinical Notes August, Medicare annual wellness visit, subsequent [...] and exercise. Reviewed age-appropriate preventive testing recommended. August,Essential (primary) hypertension (ICD-10 - I10)This patient is instructed to consume a healthy, low-fat, low-salt diet. They are also encouraged to continue exercise to achieve/maintain a normal BMI. August,Type 2 diabetes mellitus with hyperglycemia, without long-term current use of insulin (ICD-10 - E11.65)This patient is following a comprehensive diabetic treatment [...] A1C: [ ] Microalbumin: [ ] Eye exam:[ ] Foot exam: [ ] August,Type 2 diabetes mellitus with diabetic polyneuropathy, without long- term current use of insulin (ICD-10 - E11.42)Inspect feet daily for cuts and calluses.Recommend diabetic shoes and inserts to prevent callus formation.Fall precautions. August,ure hypercholesterolemia (ICD-10 - E78.00)Instructed on diet and exercise with continued statin therapy.Discussed the beneficial effects of lo wering cholesterol in reducing the risk for cerebrovascular and cardiovascular disease. August,hronic venous insufficiency (ICD-10 - I87.2)Avoid salt and elevate lower extremities, support stockings, inspect legs and feet daily for blisters and ulcerations. August,Morbid (severe) obesity due to excess calories (ICD-10 - E66.01)This patient has been instructed on a low-fat, high-fiber diet. They are instructed to reduce calories, portion sizes and snacks. It is recommended that they exercise for 30 minutes, 3-5 times weekly. August,ody mass index [BMI] 40.0-44.9, adult (ICD-10 - Z68.41) August,High risk medication use (ICD-10 - Z79.899) August,olon cancer screening (ICD-10 - Z12.11)Referral for colonoscopy: Dr. [email or web address] [email or web address] Other 09-09-2022 Hospital Discharge instructions Patient Education 12/21/2021 10:09:32 Benign Prostatic Hyperplasia Benign Prostatic Hyperplasia Benign prostatic hyperplasia (BPH) is an enlarged prostate gland that is caused by the normal agingprocess and not by cancer. The prostate is [...] urethra. Follow these instructions at home: Take nxbs-nsi-hzgsqvd and prescription medicines only as told by [...] 03/31/2006 Document Revised: 02/23/2019 Document Reviewed: 05/05/2017 [employer] Patient Education [employer]. Follow Up Care 12/11/2020 09:35:05 With:YUKO MYERS, Wyatt Crespo, URL Address: [address] [place] [address]- When: Unknown [facility] evaluation + Plan note Future Appointments Appointment Date:12/27/2022 09:30:00 AM Scheduled Provider:Wyatt CORTEZ MD Location:[facility] Appointment Type:URO Office Visit Diagnostic Tests Pending * PSA Total 10/12/22 * Testosterone Level Total 10/12/22 [facility] evaluation + Plan note Future Appointments Appointment Date:02/13/2024 10:15:00 AM Scheduled Provider:Wyatt CORTEZ MD Location:[facility] Appointment Type:URO Office Visit Diagnostic Tests Pending * PSA Total 02/10/23 * Testosterone Level Total 02/10/23 [facility] evaluation + Plan note Future Appointments Appointment Date:03/04/2025 09:45:00 AM Scheduled Provider:Wyatt CORTEZ MD Location:[facility] Appointment Type:URO Office Visit Diagnostic Tests Pending * Testosterone Level Total 02/27/24 * PSA Total 02/27/24 [facility] evalvhnhfa note* Diagnosis Onset Date Resolution Status Chronic venous insufficiency of lower ex tremity acuteHypercholesterolemiaacuteHypertensionacuteType 2 diabetes mellitus with hyperglycemiaacuteMedicare annual wellness visit, subsequentnoneactiveScreening PSA (prostate specific antigen)noneactive [facility] Work Phone: Evaluation note* Diagnosis Tubular adenoma- Primary Benign neoplasm of unspecified site [facility] Tubular adenoma- Primary Benign neoplasm of unspecified site [facility] Diagnosis Onset Date Resolution Status Admit Date Chronic venous insufficiency of lower ex tremity acuteMay 2024 1:57pmControlled type 2 diabetes mellitus with diabetic polyneuropathyacuteMay 2024 1:57pmHypercholesterolemiaacuteMay 2024 1:57pmHypertensionacuteMay 2024 1:57pmObesityacuteMay 2024 1:57pmType 2 diabetes mellitus with hyperglycemiaacuteMay 2024 1:57pm [facility] Work Phone: Evaluation note* Diagnosis Primary osteoarthritis of right knee- Primary Primary osteoarthritis of left knee [facility] Diagnosis Onset Date Resolution Status Admit Date Chronic venous insufficiency of lower ex tremity acuteOctober 2024 10:07amControlled type 2 diabetes mellitus with diabetic polyneuropathyacuteOctober 2024 10:07amElevated coronary artery calcium scoreacuteOctober 2024 10:07amHypercholesterolemiaacuteOctober 2024 10:07amHypertensionacuteOctober 2024 10:07amObesityacuteOctober 2024 10:07amType 2 diabetes mellitus with hyperglycemiaacuteOctober 2024 10:07amMedicselect [facility] annual wellness [facility], subsequentnoneactiveOctober 2024 10:07amScreening PSA (prostate specific antigen)noneactiveOctober 2024 10:07am [facility] Work Phone: History general Narrative - Reported* Type Description Date Medical History Blurred vision, bilateral Medical HistoryUnsteadyMedical HistoryAcute nonintractable headache, unspecified headache typeMedical HistoryPure hypercholesterolemiaMedical History Intertriginous candidiasisMedical HistoryType 2 diabetes mellitus with diabetic polyneuropathy, without long-term current use of insulinMedical History Controlled type 2 diabetes mellitus with hyperglycemia, without long-term current use of insulinMedical HistoryEssential (primary) hypertensionMedical HistoryPoison ivySurgical [id number] HistoryTRUS/Bx x2 Hospitalization HistorySEE SURGICAL [email or web address] [email or web address] Other Hospital course Narrative No data available for this section [facility] InstructionsNot on filedocumented in this encounter [facility]Not on filedocumented in this encounter [facility] SystemInstructionsNot on filedocumented in this encounter [facility] SystemInstructionsNot on filedocumented in this encounter [facility] No data available for this section [facility] reason for referral (narrative)No reason for referral information availableBl[facility]ard [facility] Work Phone: Summary Purpose Family History Relationship Condition Age at Onset Recorded Date/T paulette brother Malignant neoplasm Unknown Family history of lung cancerUnknownfatherMalignant neoplasmUnknownNot Specified Family history of lung cancerUnknownMalignant neoplasmUnknown Relationship Condition Age at Onset Recorded Date/T paulette brother Malignant neoplasm Unknown Family history of lung cancerUnknownfatherMalignant neoplasmUnknownmotherFamily history of lung cancerUnknownMalignant neoplasmUnknown Advance Directives Advance Directive Response Recorded Date/ Time Advance Directives No September 08 2:21pm Chief Complaint and Reason for Visit Chief Complaint wellness Reason for Visit Chronic venous insuf ficiency of lower extremity Hypercholesterolemia Hypertension Type 2 diabetes mellitus with hyperglycemia Medicare annual wellness visit, subsequent Screening PSA (prostate specific antigen) Chief Complaint Admit Date Discuss Cardiology Results-HIGH RISK August 17, 2024 1:57pm Reason for Visit Admit Date Chronic venous insufficiency of lower ex tremity August 17, 2024 1:57pm Controlled type 2 diabetes mellitus with diabetic polyneuropathy August 17, 2024 1:57pm Hypercholesterolemia August 17, 2024 1:57p m Hypertension August 17, 2024 1:57pm Obesity August 17, 2024 1:57pm Type 2 diabetes mellitus with hyperglyce florinda August 17, 2024 1:57pm Chief Complaint Admit Date Wellness January 27, 2025 1 0:07am Reason for Visit Admit Date Chronic venous insufficiency of lower ex tremity January 27, 2025 10:07am Controlled type 2 diabetes boyd huang with diabetic polyneuropathy January 27, 2025 10:07am Elevated coronary artery calcium score O ctober 2024 10:07am Hypercholesterolemia January 27, 2025 10:07am Hypertension January 27, 2025 1 0:07am Obesity January 27, 2025 1 0:07am Type 2 diabetes mellitus with hyperglyce florinda January 27, 2025 10:07am Medicare annual wellness visit, subseque nt January 27, 2025 10:07am Screening PSA (prostate specific antigen ) January 27, 2025 10:07am Reason for Referral SpecialtyDiagnoses / ProceduresReferred By ContactReferred To Contact Diagnoses Tubular adenoma Procedures [place] [address] [place] [address], [address] [id number] Referral IDStatusReasonStart DateExpiration DateVisits RequestedVisits [id number] Revieweferral IDStatusReasonStart DateExpiration DateVisits RequestedVisits [id number] Review Additional Source Comments (unrecognized sect ion and content) No Status Records FoundNo Status Records FoundNo Status Records FoundNo Status Records FoundNo Status Records Found INFORMATION SOURCE (unrecogn ized section and content) DATE CREATED AUTHOR 12/13/2021 [facility] DATE CREATED AUTHOR AUTHOR'S ORGANIZ ATION 08/25/2024 [facility] DATE CREATED AUTHOR AUTHOR'S ORGANIZ ATION 10/03/2024 [facility] DATE CREATED AUTHOR AUTHOR'S ORGANIZ ATION 11/27/2024 [facility] DATE CREATED AUTHOR AUTHOR'S ORGANIZ ATION 12/27/2024 [facility] Care Team (unrecognized sect ion and content) Team Status: Active Member Role Status Dates Sal Sinclair DO Primary Care Provider Active Team Status: Inactive Member Role Status Dates Sal Sinclair DO Primary Care Provide r, Attending Provider Active Start: October 02, 2023 End: October 02, 2023Team MemberRelationshipSpecialtyStart DateEnd Date Sal Sinclair DO [address] [place] [address] PCP - [facility]11/10/20Team MemberRelationshipSpecialtyStart Date End Date Sal Sinclair DO [address] [place] [address] PCP - [facility]11/10/20Team MemberRelationshipSpecialtyStart Date End Date Sal Sinclair DO [address] [place] [address] PCP - [facility]11/10/20Team MemberRelationshipSpecialtyStart Date End Date Sal Sinclair DO [address] [place] [address] PCP - [facility]08/05/24 Team Status: Inactive Member Role Status Dates Sal Sinclair DO Primary Care Provide r, Attending Provider Active Start: August 17, 2024 End: August 17, 2024Team MemberRelationshipSpecialtyStart DateEnd Date Sal Sinclair DO [address] [phone] PCP - [facility]08/05/24 Team Status: Inactive Member Role Status Dates Sal Sinclair DO Primary Care Provider Active Start: January 27, 2025 End: January 27wojciech Sinclair DOAttalfie ProviderActiveStart: January 27, 2025 End: January 27, 2025 REASON FOR VISIT (unrecogniz ed section and content) ReasonOnset DateCommentsMed Wjwzko6207/28/2023easonCommentsPain Goals (unrecognized section and content) Goals may [...] BE BASED ON THE PRIMARY CLINICAL RECORDS. [facility]. provides no warranty or guarantee of the accuracy or completeness of information in this document.
[2025-03-03 15:51] LABS: Prostate Specific Antigen Dx 3.14 ng/mL (<=4.00)
== END 2025-03-03 14:21 | disposition home or self-care (01) ==
LOC: LAB 14:24
PROVIDERS: PCP Internal Medicine; Visit Provider Urology
DX: E29.1 Testicular hypofunction (principal); N40.1 Benign prostatic hyperplasia with lower urinary tract symptoms; N52.9 Male erectile dysfunction, unspecified
CPT/HCPCS: 36415; 84153; 84403

== ENCOUNTER 2025-03-03 14:26 | Outpatient (OUT) | payer MEDICARE, SELFPAY ==
--- OUTSIDE RECORDS SUMMARY | 2025-03-03 14:33 | XMS_ITS | Clinical Summary ---
Author Organization [facility] Address [address] [place] [address] Care Team Providers Care Lipcoat Sprayer Name Role Phone Unavailable Primary Care Provider Unavailabl e Social History Tobacco UseTypesPacks/DayYears UsedDateSmoking Tobacco: Never AssessedSex and Gender InformationValueDate RecordedSex Assigned at BirthNot on fileLegal Sex Male06/26/2022 7:09 PM EDTGender IdentityNot on fileSexual OrientationNot on file Plan of Treatment Not on file
--- OUTSIDE RECORDS SUMMARY | 2025-03-03 14:34 | XMS_ITS | Patient Health Record ---
Author Organization [facility] [place] Address [address] [place] [address] Care Team Providers Care Palliative Medicine Physician Name Role Phone Sal Sinclair DO Primary Care Provider Unavaila ble Allergies No Known Allergies Reason For Referral No Information Medications Medication SIG (Take, Route, Frequency, Duration) Notes Start Date End Date Status metFORMIN HCl 500 MG 1 tablet with a meal Orally Once a day ActiveSulfamethoxazole-Trimethoprim 800-160 MG1 tablet Orally Twice a day; Duration: 10 day(s)11/28/2022ctiveamLODIPine-Atorvastatin 10-40 MG1 tablet Orally Once a dayActiveAtorvastatin Calcium 10 MG1 tablet Orally Once a day ActiveBenazepril HClActiveCephalexin 500 MG1 tablet Orally twice daily; Duration: 10 days11/28/2022ctivehydroCHLOROthiazide 25 MG1 tablet in the morning Orally Once a dayActive Social History Tobacco Use: Social History Observation Description Date Details (start date - stop date) Never Smoker NA - NA Tobacco Use/Smoking Question Answer Notes Patient is a nonsmoker Problems Problem Type SNOMED Code ICD Code Onset Dates Problem Status W/U Status Risk Notes Problem Cellulitis of left l ower limb (92918982909929021) Cellulitis of left lower limb (L03.116) ActiveconfirmedProblemChronic ulcer of foot (086097140)Non-pressure chronic ulcer of other part of left foot with fat layer exposed (L97.522)Activeconfirmed Plan Of Treatment No Information Insurance Providers Payer Name Payer Address Payer Phone Subscriber Number Group Number Insured Name Patient Relationship to Insured Coverage Start Date Coverage End Date [place]IC[place] [address] [place] [address] [id number] Lynda Santos - patient is the insuredAARP [facility] [id number] [place] [id number], MichaelSelf - patient is the insured Medical (General) History Medical History History ICD Code diabetes mellitus hypertension
--- OUTSIDE RECORDS SUMMARY | 2025-03-03 14:36 | XMS_ITS | CCD ---
Author Organization [facility] CliniSyde Care Team Providers Care Gliding Pilot Instructor Name Role Phone DR SAL SINCLAIR Primary [...] Consulting Unavailable SAL SINCLAIR Primary Care Physician [phone] Sal Sinclair Sal Sinclair DO Primary Care [...] Care Provider Sal Sinclair DO Attending Provider [phone] Allergies Allergy ClassificationReported Allergen(s)Allergy TypeDate of OnsetReaction(s) Facility (1 source)No Known Medication Allergies; Translations: [No Known Medication Allergies]Propensity to adverse reactions (disorder)[facility] Repository Medications Current Medications MedicationDrug Class(es)DatesSig (Normalized)Sig (Original)amLODIPine 10 mg / benazepril hydrochloride 40 mg oral capsule (20 sources)Dihydropyridine Calcium Channel Annika, Angiotensin Converting Enzyme InhibitorStart: 60-06-5560msdj 1 capsule by mouth once dailyAmlodipine- Benazepril 10-40 mg capsule Active 0 .ROUTE .COMPLEX 90 June 06, 2024 9:55am TAKE 1 CAPSULE BY MOUTH EVERY DAY Complies with drug therapyStart: 10-02-2023 End: 63-42-0472nsvz 1 capsule by mouth once dailyAmlodipine-Benazepril 10-40 mg capsule Discontinued 1 CAP PO Daily October 02, 2023 9:48am June 06, 2024 9:55amStart: 06-23-2023 End: 77-20-0989fbhq 1 capsule by mouth once dailyAmlodipine-Benazepril 10-40 mg capsule Discontinued 0 .ROUTE .COMPLEX June 23, 2023 1:24pm October 02, 2023 9:49am TAKE 1 CAPSULE BY MOUTH EVERY DAYStart: 15-71-6119ozFOMBHodv- benazepril (LOTREL) 10-40 mg per capsule Take by mouth in the morning. 08/06/2022 ActiveStart: 12-11-2020 End: 87-86-5947qofs 1 capsule by mouth once dailyAmlodipine-Benazepril 10-40 mg capsule Discontinued 1 CAP PO Daily June 23, 2023 12:00am June 23, 2023 1:24pmaspirin 81 mg delayed release oral tablet (11 sources)Platelet Aggregation Inhibitor, Nonsteroidal Anti-inflammatory Drug Start: 06-46-2903beyv 1 tablet by mouth once dailyAspirin 81 mg tablet,delayed release (DR/EC) Active 81 MG PO Daily October 02, 2023 12:00am Complieswith drug therapyStart: 16-32-5395jqah 1 mg by mouth once dailyaspirin 81 mg oral tablet mg tab(s), Oral, Daily, Refills(s) 0 Start Date: 03/05/19 Status: Ordered atorvastatin 10 mg oral tablet (14 sources)HMG-CoA Reductase InhibitorStart: 67-57-6872zmwm 1 tablet by mouth once dailyAtorvastatin 10 mg tablet Active 0 .ROUTE .COMPLEX 90 January 14, 2024 5:16pm TAKE 1 TABLET BY MOUTH EVERY DAY Complies with drug therapyStart: 03-05-2019 End: 54-99-9668gjsj 1 tablet by mouth once dailyAtorvastatin 10 mg tablet Discontinued 10 MG PO Daily July 08, 2023 12:00am January 14, 2024 5:16pm bisacodyl 5 mg delayed release oral tablet (2 sources)Stimulant LaxativeStart: 88-61-0433ofbx 1 tablet by mouth once daily as needed for constipationbisacodyL (DULCOLAX) 5 mg EC tablet Take 1 tablet (5 mg total) by mouth daily as needed for constipation. 2 tablet 08/11/2024 Active Start: 11-67-4693lyvgwixhK (DULCOLAX) 5 mg EC tablet Indications: Tubular adenoma Take 1 tablet (5 mg total) by mouth See Admin Instructions. 2 tablet 07/29/2023 Activegabapentin 100 mg oral capsule (5 sources)Anti-epileptic AgentStart: 29-42-9086pwjz 1 capsule by mouth three times dailyGabapentin 100 mg capsule Active 0 .ROUTE .COMPLEX November 18, 2024 5:51pm TAKE 1 CAPSULE BY MOUTH THREE TIMES DAILY FOR 30 DAYS Complies with drug therapyStart: 04-06-2024 End: 46-56-3066blvx 1 capsule by mouth three times dailyGabapentin 100 mg capsule Discontinued 100 MG PO Three times daily April 06, 2024 1:00amAugu2024 5:51pmhydroCHLOROthiazide 25 mg oral tablet (16 sources)Thiazide DiureticStart: 02-12-2024 End: 55-80-4226gwxp 1 tablet by mouth once dailyHydrochlorothiazide 25 mg tablet Active 0 .ROUTE .COMPLEX August 04, 2024 6:45am TAKE 1 TABLET BY MOUTH EVERY DAY Complies with drug therapyStart: 12-06-2019 End: 42-27-3761efaa 1 tablet by mouth once dailyHydrochlorothiazide 25 mg tablet Discontinued 25 MG PO Daily July 08, 2023 12:00am January 1:32pm ketoconazole 20 mg/ml medicated shampoo (6 sources)Azole AntifungalStart: 10-02-2023 End: 45-62-3180Ginokoetdcnn 2 % shampoo Active 1 APPLIC TOPICAL 3 Times a week 120 October 02, 2023 10:11am Complies with drug therapy dgkhtaza-vmuf-RS-calcium &mins (THERAGRAN-M) 9 mg iron-400 mcg tablet (5 sources)ndecutyd-immc-MM-calcium &mins (THERAGRAN-M) 9 mg iron-400 mcg tablet Take 1 tablet by mouth inthe morning. ActiveOZEMPIC 1 mg/dose (4 mg/3 mL) pen injector (2 sources)Start: 82-56-9691IQAEDYU 1 mg/dose (4 mg/3 mL) pen injector 1 MG (0.75 ML) SUBCUTANEOUSLY EVERY WEEK FOR 28 DAYS FOR4 WEEKS 07/01/2024 Active polyethylene glycol 3350 731873 mg / potassium chloride 2970 mg / sodium bicarbonate 6740 mg / sodium chloride 5860 mg / sodium sulfate 56121 mg powder for oral solution (2 sources)Osmotic LaxativeStart: 68-69-0427blgkfpallxqt glycol (GoLYTELY) 236-22.74-6.74 -5.86 gram solution Please follow office colonoscopy i nstructions. 4000 mL 08/11/2024 ActiveStart: 46-79-8652xfnbuepzfvxz glycol (GoLYTELY) 236-22.74-6.74 -5.86 gram solution Indications: Tubular adenoma Pleas e follow office instructions for colonoscopy preparation. 4000 mL 07/29/2023 Activerosuvastatin calcium 40 mg oral tablet (2 sources)HMG-CoA Reductase InhibitorStart: 77-22-0881lwxd 1 tablet by mouth once dailyRosuvastatin 40 mg tablet Active 40 MG PO Daily August 17, 2024 10:35pm Complies with drug therapyStart: 08-17-2024 End: 74-23-4683cryx 1 capsule by mouth once dailyRosuvastatin 40 mg capsule, sprinkle Discontinued 40 MG PO Daily August 17, 2024 12:00am August 17, 2024 10:35pmSemaglutide (5 sources)Start: 59-77-3944pyrovf 1 mg by subcutaneous injection every week Semaglutide (Ozempic) 1 mg/dose (4 mg/3 mL) pen injector Active 1 MG SUBCUT every week November 18, 2024 5:50pm Complies with drug therapyStart: 06-11-2024 End: 88-70-2228oregxu 1 mg by subcutaneous injection every weekSemaglutide [...] 2024 2:34pm for 4 weeksStart: 05-31-2024 End: 37-66-0050lybcrl 1 mg by subcutaneous injection every weekSemaglutide 1 mg/dose (4 mg/3 mL) pen injector Discontinued 1 MG SUBCUT every week 3 May 31, 2024 10:56pm June 11, 2024 7:49pm for 4 weeks Completed/Discontinued Medications MedicationDrug Class(es)DatesSig (Normalized)Sig (Original)latanoprost 0.05 mg/ml ophthalmic solution (3 sources)Prostaglandin AnalogStart: 10-02-2023 End: 54-19-8696kvsf 1 drop(s) into the eye(s) once dailyLatanoprost 0.005 % drops Discontinued 1 DROPS EYE-BOTH Daily October 02, 2023 12:00am October 01 9:49amStart: 10-02-2023 End: 59-38-7360qldo 1 drop(s) into the eye(s) once dailyLatanoprost 0.005 % drops Discontinued 1 DROPS EYE-BOTH Daily October 02, 2023 12:00am October 01 9:49amStart: 10-02-2023 End: 21-62-9685ogch 1 drop(s) into the eye(s) once dailyLatanoprost Discontinued 1 DROPS EYE-BOTH Daily October 02, 2023 12:00am October 02, 2023 9:49ammetFORMIN hydrochloride 500 mg oral tablet (19 sources)BiguanideStart: 07-08-2023 End: 83-37-6381uqgv 1 tablet by mouth once dailyMetformin 500 mg tablet Discontinued 0 .ROUTE .COMPLEX 90 February 12, 2024 1:32pm August 03, 2024 7:40am TAKE 1 TABLET BY MOUTH EVERY DAYStart: 03-05-2019 End: 92-45-8385jyae 1 tablet by mouth once dailyMetformin 500 mg tablet Discontinued 500 MG PO Daily July 08, 2023 12:00am July 08, 2023 6:05pm predniSONE 20 mg oral tablet (4 sources)Start: 07-08-2023 End: 30-31-3514Aqnnnxsatv 20 mg tablet Discontinued 20 MG PO July 08, 2023 12:00am October 02, 2023 9:48am 1 tablet Orally tid w/ food x 3 days, then bid w/ food x 3 days, then qd w/ food x 3 daysStart: 78-27-2974lovkjlKAGQ 20 MG 1 tablet Orally tid w/ food x 3 days, then bid w/ food x 3 days, then qd w/ food x 3 days for 9 days August, ActiveSemaglutide (6 sources)Start: 05-31-2024 End: 85-78-0290Lapxduwpasn (Ozempic) 0.25 mg or 0.5 mg (2 mg/3 mL) pen injector Discontinued 1 MG SUBCUT every week 3 May 31, 2024 10:55pm May 31, 2024 10:56pm for 4 weeksStart: 05-05-2024 End: 70-59-2742Lptohmfyzke (Ozempic) 0.25 mg or 0.5 mg (2 mg/3 mL) pen injector Discontinued 0.5 MG SUBCUT every week 3 May 05, 2024 11:28am May 31, 2024 10:55pm for 4 weeksStart: 04-06-2024 End: 37-54-3793Waaldqqvprx (Ozempic) 0.25 mg or 0.5 mg (2 mg/3 mL) pen injector Discontinued 0.25 MG SUBCUT every week 3 April 06, 2024 1:00am May 05, 2024 11:29am for 4 weekssildenafil 20 mg oral tablet (3 sources)Phosphodiesterase 5 InhibitorStart: 39-52-6464fqyqfirgxe 20 mg oral tablet 20 mg = 1 tab(s), Oral, As Directed, Take 3-5 tablets by mouth prior to sexual relations, # 90 cap(s), Refills(s) 3, Pharmacy: [id number], 178, cm, 02/26/2411:12:00 EST, Height/Length Dosing, 147.7, kg, 02/27/24 11:12:00 EST, Weight Dosing Start Date: 02/27/24 Status: OrderedStart: 05-06-6402mtvpfyovsz 20 mg oral tablet 20 mg = 1 tab(s), Oral, As Directed, Take 3-5 tablets by mouth prior to sexual relations, # 90 cap(s), Refills(s) 3, Pharmacy: [id number], 178, cm, 02/11/2312:36:00 EDT, Height/Length Dosing, 143, kg, 02/10/23 12:36:00 EDT, Weight Dosing Start Date: 02/10/23 Status: OrderedStart: 99-19-9301anfstqzsjk 20 mg oral tablet 20 mg = 1 tab(s), Oral, As Directed, Take 3-5 tablets by mouth prior to sexual relations, # 90 cap(s), Refills(s) 3, Pharmacy: [id number] Start Date: 12/21/21 Status: Ordered1 ml triamcinolone acetonide 40 mg/ml injection (2 sources)CorticosteroidStart: 08-24-2024 End: 45-98-654040 mg, intra-articular, One-Time Injection, Starting on Fri08/24/24 at 0848, For 1 dose Problems Active Problems Problem ClassificationProblemDateDocumented DateEpisodic/ChronicAllergic reactions (1 source)Allergic contact dermatitis due to plants, except food; Translations: [Poison edgardo]EpisodicBlindness and vision defects (5 sources)Other visual disturbances; Translations: [Visual disturbance]Onset: 08-99-3281MhedgzzkCnhhjthy atherosclerosis and other heart disease (2 sources)Coronary arteriosclerosis; Translations: [Atherosclerotic heart disease of [place] coronary artery without angina pectoris]68-69-9261Zabsekx Comment on above:CAC: LM23, LAD 360, LCx [...] with hyperglycemia; Translations: [Type 2 diabetes mellitus]Onset: 94-64-8528PhegmtrGgwgnes on above:MARITZA: left 1.16, right 1.2 05/2024Diabetes mellitus without complication (3 sources)Diabetes gtqksoju20-85-4341HjnjgtaIuevebuxw of lipid metabolism (10 sources)Pure hypercholesterolemia, unspecified; Translations: [Pure hypercholesterolemia]Onset: 02-27-6070KmvojuqOnlbfcton hypertension (13 sources)Essential (primary) hypertension; Translations: [Hypertensive disorder]Onset: 399409-59-0391HjkmemxNqypkfsosuzsx symptoms and ill- defined conditions (3 sources)Xmsqdbex63-69-5272WvweftbgTuammlqn; including migraine (1 source)Headache; including migraine; Translations: [HEADACHE UNSPECIFIED] Onset: 14-23-3582Cjpivftwtde of prostate (10 sources)Benign prostatic hyperplasia with lower urinary tract symptoms; Translations: [Benign prostatic hypertrophy with outflow obstruction]Onset: 66-86-5709QoqsannHtpqbbhgczmu conditions of male genital organs (3 sources)Chronic xmvaumynuim21-88-3664ZarwigyMnictgw and fatigue (2 sources)Fatigue; Translations: [Other fatigue]86-36-8289FdgfvxqcBhyuwbp (1 source)Candidiasis of skin and nails; Translations: [Candidiasis of skin and nail]EpisodicNonspecific chest pain (1 source)Chest pain, unspecified; Translations: [Chest pain, unspecified]Onset: 28-33-5212QkypjmouQwkxvxwtmqphwj (6 sources)Osteoarthritis of right knee joint; Translations: [Unilateral primary osteoarthritis, right knee]Onset: 167338-93-7170RkafeulBkfqb aftercare (2 sources)Other prison (current) drug therapy; Translations: [OTH ASSISTED CURRENT DRUG THERAPY]Onset: 74-53-9042GuvglscyXyuww and unspecified benign neoplasm (1 source)Polyp of colon; Translations: [Polyp of colon]Onset: 09-21-2024 EpisodicOther connective tissue disease (2 sources)Myositis; Translations: [Myositis, unspecified]05-31-0652Fkwzrozl Other connective tissue disease (2 sources)Muscle weakness of limb; Translations: [Other symptoms and signs involving the musculoskeletal system]31-20-9787HqmbxpmfGdzwx diseases of kidney and ureters (1 source)Urinary tract obstruction; Translations: [Other obstructive and reflux uropathy]Onset: 66-34-0962MbpswgloKvvha diseases of veins and lymphatics (1 source)Peripheral venous insufficiency; Translations: [Venous insufficiency (chronic) (peripheral)]EpisodicOther diseases of veins and lymphatics (3 sources)Venous insufficiency (chronic) (peripheral); Translations: [Venous (peripheral) insufficiency, unspecified]EpisodicOther diseases of veins and lymphatics (4 sources)Venous insufficiency of leg; Translations: [Venous insufficiency (chronic) (peripheral)]66-93-2220YkrtxybeZfujk endocrine disorders (1 source)Testicular hypofunction; Translations: [TESTICULAR HYPOFUNCTION]Onset: 70-23-1444NrfcfbxUhcut endocrine disorders (3 sources)Testicular hypofunction; Translations: [Testicular hypofunction] Onset: 71-15-2314UaotizfMhheu endocrine disorders (3 sources)Male oolyqpljqvps75-13-4417RghwozbMjtwt male genital disorders (4 sources)Male erectile dysfunction, unspecified; Translations: [Erectile dysfunction]Onset: 14-84-2738UhcgeasMkvcz male genital disorders (3 sources)Ukbcynnlp68-21-1979KeufatfMzulx nervous system disorders (2 sources)Peripheral nerve disease ; Translations: [Polyneuropathy, unspecified]08-83-3498QdztjneOasfa nervous system disorders (2 sources)Unsteadiness on feet; [...] and metabolic disorders (3 sources)Obesity; Translations: [Obesity, unspecified]22-26-9105RcfehteDtkuf nutritional; endocrine; and metabolic disorders (1 source)Obesity, unspecified; Translations: [Obesity, unspecified]08-17-2024 ChronicOther screening for suspected conditions (not mental disorders or infectious disease) (5 sources)Encounter for screening for malignant neoplasm of colon; Translations: [Encounter for screening formalignant neoplasm of prostate] EpisodicResidual codes; unclassified (1 source)PainOnset: 57-56-4741XoupviypYdptohbkycci (3 sources)Drug therapy cagwtek52-10-7183Zldmhzoxaebw (1 source)Autogenerated ProblemOnset: 267975-60-1429Xgxnmqywkyux (1 source)Tubular adenoma D12.6Onset: 09-21-2024 Past or Other Problems Problem ClassificationProblemDateDocumented DateEpisodic/ChronicOther and unspecified benign neoplasm (2 sources)Tubular adenoma ; Translations: [Benign neoplasm, unspecified site] 06-34-1281DtfeybdnPeskupvcebco (1 source)Acute headache; Translations: [Acute nonintractable headache, unspecified headache type] Results Test NameValueInterpretationReference RangeFacilityNUC STRESS EXERCISEon 37-38-1650IRG STRESS EXERCISENUC STRESS EXERCISE HISTORY: A 74-year-old [...] by Braden Rodrigez MD on 11/10/2024 1:55 [facility]$ Large Joint Injection: knee, L kneeon [...] tolerated the procedure very well. MANUALLY TRANSCRIBED [facility]Home[facility]$ Large Joint Injection: knee, R kneeon 94-93-4342Rvhktnun Carolyneovannone, DO 08/24/2024 8:49 AM $ Large [...] was given by the patient. MANUALLY TRANSCRIBED [facility] MobileE[facility] HospitalESILLAGE [facility] HospitalAmbulatory Visit Summaryon 27-31-9090Kcxoxtbcac Visit SummaryAmbulatory Visit Summary ELVIS SANTOS Jose [...] Wyatt CORTEZ MD Where: [facility] [address] [place] [address]- You Need to Schedule the Following Appointments Follow Up with Wyatt CORTEZ MD, URL When: In 1 year Comments: w/PSA and T Level Where: [facility] [address], [place] [address]- Medications What How Much When Instructions Unchanged sildenafil (sildenafil 20 mg oral tablet) 1 Tablets By Mouth As Directed Take 3-5 tabletsby mouth prior to sexual relations [facility] Unchanged amlodipine-benazepril (amLODIPine-benazepril 10mg-40 mg Cap) By [...] physician if questions or concerns [facility]: [address] [place], [place] [id number] [phone] Allergies No Known Medication Allergies Problems Ongoing [...] ??? Never having nighttim (more content not included)...[facility] Noteon 22-06-7175Sjrzcnw Office/Clinic NoteUrology Office/Clinic Note Chief Complaint 1yr [...] with voice recognition artificial intelligence software, specifically [employer], [employer] and or [employer]. Substitutions may have occurred due to the inherent limitations of voice recognition and artificial intelligence software. -Will order PSA. 3. Impotence (N52.9: Male erectile dysfunction, unspecified) Taking Sildenafil 20mg PRN, three at a time. Works well. Refills sent. Cont med wo changes. Follow-up With When Contact Information YUKO MYERS, Wyatt Crespo, URL In 1 year [facility] [address], [place] [address]- Additional Instructions: w/PSA and T Level Patient [...] 25 mg Tab, O (more content not included)...[facility] HospitalComment on above:Result Comment: Electronically Signed By: Wyatt CORTEZ MD\.br\Date and Time Signed: 02/27/24 12:07 EST\.br\Electronically Co-Signed By: Mariam Arthur\.br\Date and Time Co- Signed: 02/27/24 12:04 ESTA1C with Estimated Average Gluon 41-52-2843J3X with Estimated Average GluNCheck-Cap Other Alanine Aminotransferaseon 61-86-2832HSD [Catalytic activity/Vol]46 U/L16-63 U/[employer] Other Basic Metabolic Panelon 08-86-7247Keazh gap [Moles/Vol]11.9 mmol/[employer] Other Calcium [Mass/Vol]8.9902512 mg/dL8.5-10.1 mg/dLNort [employer] Other Chloride [Moles/Vol]104 mmol/L98-107 mmol/[employer] Other CO2 [Moles/Vol]31.57995260 mmol/L21.0-32.0 mmol/[employer] Other Creatinine [Mass/Vol]0.54087476 mg/dL0.70-1.30 mg/dL [employer] Other Potassium [Moles/Vol]3.71493212 mmol/L3.5-5.1 mmol/L [facility] [place] [employer] Other Urea nitrogen [Mass/Vol]18.5171557 mg/dL7.0-18.0 mg/dL [facility] [place] [employer] Other Urea nitrogen/Creatinine [Mass ratio]20.7 mg/mgNossm health care [employer] Other Basic Metabolic Panelsee noteNossm health care [employer] Other Basic Metabolic Bphzd423 mmol/O274-628 mmol/LNEastern [facility] [place] [employer] Other Basic Metabolic Ljqgo453 mg/dLCritically thwx07-175 mg/dLSkokie [employer] Other Basic Metabolic Panel>60 mL/min/1.73m2>=60 mL/min/1.73l0Krplh [employer] Other Complete Blood Count and Diffon 56-87-9668Bjccutvqdczo Ql (Bld)[place] [employer] Other Basophilic stippling LM Ql (Bld)[facility] [place] [employer] Other RBC morphology finding Nom (d)[facility] [place] [employer] Other Lipid Panelon 82-56-7678Qpcbaeyeaxc [Mass/Vol]119 mg/dL<=200 mg/dLSkokie [employer] Other Cholesterol in HDL [Mass/Vol]42 mg/dL40-60 mg/dLSkokie [employer] Other Cholesterol.total/Cholesterol in HDL [Mass ratio]2.8 {ratio}[employer] Other Triglyceride [Mass/Vol]96 mg/dL<=150 mg/dLSkokie [employer] Other Lipid Panel> or = 60 mg/dl - LOW CARDIOVASCULAR RISK <40 mg/dl - HIGH CARDIOVASCULAR RISKNossm health care [employer] Other Lipid PanelSEE BELOWNort [employer] Other Lipid Panel57.8 mg/dLNossm health care [employer] Other Lipid Panel19.2 mg/dLNort [employer] Other TESTOSTERONE, TOTALon 95-84-4995Dokcovholaog [Mass/Vol]367 ng/qKUyiksq968-262Fiv [facility] DaytonComment on above:Result Comment: Adult male reference interval is based on a population of healthy nonobese males (BMI <30) between 19 and 39 years old. Amanda, et.al. JCEM 2017,102;9106-2708. PMID: [id number].Performed By: #### TESTTOT #### [facility] [address] [place] [address] Dr. Yanely DmaianI BRAIN WO CONon 54-99-8553DZG BRAIN WO CONEXAMINATION: MRI BRAIN WO CON, [...] authenticated by: JUANITO QURESHI Date: 2021-11-01 14:12[facility] AUTO DIFFon 30-25-6608FDZG #0.1 103/ulNormal0.0-0.1The [facility] DaytonComment on above:Performed By: #### CBC #### [facility] [address] [address] [address] Yanely DamianBasophils/100 WBC (Bld)0.8 %Normal0.2-2.0The [facility] Comment on above:Performed By: #### CBC #### [facility] [address] [place] [address] Dr. Yanely Gallardo #0.3 103/ulNormal0.0-0.7The [facility] DaytonComment on above: Performed By: #### CBC #### [facility] [address] [place] [address] Dr. Yanely Barrettosinophils/100 WBC (Bld)4.6 %Normal0.9-7.0The [facility] Comment on above:Performed By: #### CBC #### [facility] [address] [place] [address] Dr. Yanely Barrettrythrocyte distribution width (RBC) [Ratio]13.7 %Ecurmo13.0-15.0 The [facility] DaytonComment on above:Performed By: #### CBC #### [facility] [address] [place] [address] Dr. Yanely DamianHematocrit (Bld) [Volume fraction]48.2 %Ystapn70.0-54.0The [facility] DaytonComment on above:Performed By: #### CBC #### [facility] [address] [place] [address] Dr. Yanely DamianHemoglobin (Bld) [Mass/Vol]16.0 g/bFReewur35.0-18.0The [facility] DaytonComment on above:Performed By: #### CBC #### [facility] [address] [place] [address] Dr. Yanely Lee #0.02 10e3/ulNormal0.00-0.03The [facility] DaytonComment on above:Performed By: #### CBC #### [facility] [address] [place] [address] Dr. Yanely Lee %0.3 %Normal0.0-0.5The [facility] DaytonComment on above: Performed By: #### CBC #### [facility] [address] [place] [address] Dr. Yanely Anderson #1.6 103/ulNormal1.2-3.8The [facility] DaytonComment on above:Performed By: #### CBC #### [facility] [address] [place] [address] Dr. Yanely Campbellhocytes/100 WBC (Bld)24.5 %Cooenz20.5-60.0The [facility] DaytonCommclaren [facility] [place] on above:Performed By: #### CBC #### [facility] [address] [place] [address] Dr. Yanely Saavedra DIFF REQNONormalThe [facility] DaytonComment on above: Performed By: #### CBC #### [facility] [address] [place] [address] Dr. Yanely Garay (RBC) [Entitic mass]29.7 yiOmuwdu59.9-34.0The [facility] DaytonComment on above:Performed By: #### CBC #### [facility] [address] [place] [address] Dr. Yanely Sexton (RBC) [Mass/Vol]33.2 g/sBKshufv26.9-35.2The [facility] on above:Performed By: #### CBC #### [facility] [address] [place] [address] Dr. Yanely Roberto (RBC) [Entitic vol]89.6 dFPcgrrc60.0-94.0The [facility] DaytonCommclaren [facility] [place] on above:Performed By: #### CBC #### [facility] [address] [place] [address] Dr. Yanely Linares #0.8 103/ulNormal0.3-0.8The [facility] on above:Performed By: #### CBC #### [facility] [address] [place] [address] Dr. Yanely Manningocytes/100 WBC (Bld)11.5 %Normal1.7-12.0The [facility] Comment on above:Performed By: #### CBC #### [facility] [address] [place] [address] Dr. Yanely James #3.8 103/ulNormal1.4-6.5The [facility] DaytonComment on above:Performed By: #### CBC #### [facility] [address] [address] [address] Yanely Stapletonutrophils/100 WBC (Bld)58.3 %Rtsxub75.0-75.0The [facility] DaytonComment on above:Performed By: #### CBC #### [facility] [address] [place] [address] Dr. Yanely DamianPlatelet mean volume (Bld) [Entitic vol]9.0 fLCritically low 9.5-13.5The [facility] DaytonComment on above:Performed By: #### CBC #### [facility] [address] [place] [address] Dr. Yanely DamianPLT235 103/ukHhwkif275-053Bol [facility] DaytonComment on above: Performed By: #### CBC #### [facility] [facility] [address] [place] [address] Dr. Yanely DamianRBC5.38 106/ulNormal4.70-6.10The [facility] DaytonComment on above:Performed By: #### CBC #### [facility] [address] [place] [address] Dr. Yanely DamianWBC6.5 103/ulNormal4.0-11.0The [facility] DaytonComment on above: Performed By: #### CBC #### [facility] [address] [place] [address] Dr. Yanely DamianGLYCOHEMOGLOBIN A1Con 85-19-9933QLR RECOMMENDATIONADA THERAPEUTIC TARGET 6.0 - 7.0 ACTION SUGGESTED > 7.0NormalThe [facility] DaytonComment on above:Performed By: #### A1C #### [facility] [address] [place] [address] Dr. Yanely DamianGlucose [Mass/Vol]117 mg/dLSelect Medical Cleveland Clinic Rehabilitation Hospital, BeachwoodComment on above:Performed By: #### A1C #### [facility] [address] [address] [address] Yanely DamianHbA1c (Bld) [Mass fraction]5.7 %Normal<=6.0[facility] Comment on above:Performed By: #### A1C #### [facility] [address] [address] [address] Yanely HatchID PROFILEon 99-16-1830XDGM-HDL RATIO NORMSEE [facility] CenterComment on above:Result Comment: 3.3 - 4.4 LOW RISK 4.4 - 7.1 AVERAGE RISK 7.1 - 11.0 MODERATE RISK >11.0 HIGH RISKPerformed By: #### LIPID, CMP #### [facility] [address] [address] [address] Yanely DamianCholesterol [Mass/Vol]138 mg/dLNormal<=200[facility] Comment on above:Performed By: #### LIPID, CMP #### [facility] [address] [address] [address] Yanely DamianCholesterol in HDL [Mass/Vol]46 mg/dLSelect Medical [facility], [place] Comment on above:Performed By: #### LIPID, CMP #### [facility] [address] [address] [address] Yanely Cesaresterol in LDL [Mass/Vol]56.6 mg/dLSelect Medical Cleveland Clinic Rehabilitation Hospital, BeachwoodComment on above:Performed By: #### LIPID, CMP #### [facility] [address] [address] [address] Yanely Cesaresterana.total/Cholesterol in HDL [Mass ratio]3.0 {ratio} NormalGlenbeigh HospitalComment on above:Performed By: #### LIPID, CMP #### [facility] [address] [address] [address] Yanely DamianHDL NORMAL> or = 60 mg/dl - LOW CARDIOVASCULAR RISK <40 mg/dl - HIGH CARDIOVASCULAR RISKMadison Healthment on above:Performed By: #### LIPID, CMP #### [facility] [address] [address] [address] Yanely Burgess CALC NORMALSEE BELOWSelect Medical Cleveland Clinic Rehabilitation Hospital, BeachwoodCommclaren northern [place] on above:Result Comment: <100 mg/dl OPTIMAL 100 - 129 mg/dl NEAR OR ABOVE OPTIMAL 130 - 159 mg/dl BORDERLINE HIGH 160 - 189 mg/dl HIGH >190 mg/dl VERY HIGH Performed By: #### LIPID, CMP #### [facility] [address] [place] [address] Dr. Yanely DamianTriglyceride [Mass/Vol]177 mg/dLCritically high<=150The [facility] on above:Performed By: #### LIPID, CMP #### [facility] [address] [place] [address] Dr. Yanely DamianVLDL CALC35.4 mg/dLNoWooster Community HospitalComment on above: Performed By: #### LIPID, CMP #### [facility] [address] [place] [address] Dr. Yanely PeacockALBUMIN, RAND URon 36-86-6271uZRG5.4 mg/LNormal<=30.0The [facility] on above:Performed By: #### MALBR #### [facility] [address] [place] [address] Dr. Yanely DamianPROF 14(COMP METB)on 74-63-0655Gzmgjrs [Mass/Vol]4.0 g/dLNormal 3.5-5.0The [facility] on above:Performed By: #### LIPID, CMP #### [facility] [address] [place] [address] Dr. Yanely DamianAlbumin/Globulin [Mass ratio]1.0 {ratio}NormalThe [facility] on above:Performed By: #### LIPID, CMP #### [facility] [address] [place] [address] Dr. Yanely DamianALP [Catalytic activity/Vol]72 U/OZdapap20-363Pvy [facility] on above:Performed By: #### LIPID, CMP #### [facility] [address] [address] [address] Yanely LoyaT [Catalytic activity/Vol]24 U/DZljftx34-17Hwn [facility] DaytonComment on above:Performed By: #### LIPID, CMP #### [facility] [address] [address] [address] Yanely Springeron gap [Moles/Vol]13.5 mmol/LNormalThe [facility] Comment on above:Performed By: #### LIPID, CMP #### [facility] [address] [address] [address] Yanely DamianAST [Catalytic activity/Vol]16 U/LCritically umd20-28Hny [facility] DaytonComment on above:Performed By: #### LIPID, CMP #### [facility] [address] [address] [address] Yanely DamianBilirubin [Mass/Vol]0.9 mg/dLNormal0.2-1.3TParkview Health Comment on above:Performed By: #### LIPID, CMP #### [facility] [address] [address] [address] Yanely DamianCalcium [Mass/Vol]9.3 mg/dLNormal8.4-10.2[facility] Comment on above:Performed By: #### LIPID, CMP #### [facility] [address] [address] [address] Yanely DamianChloride [Moles/Vol]102 mmol/DYyjyqz04-475Nlu [facility] Comment on above:Performed By: #### LIPID, CMP #### [facility] [address] [address] [address] Yanely DamianCO2 [Moles/Vol]28.0 mmol/ZLvawyb92.0-30.0The [facility] Comment on above:Performed By: #### LIPID, CMP #### [facility] [address] [address] [address] Yanely DamianCreatinine [Mass/Vol]0.87 mg/dLNormal0.66-1.25The Sp HospitalComment on above:Performed By: #### LIPID, CMP #### [facility] [address] [address] [address] Yanely BarrettGFR-AF SUDANESE>60Normal>=60The [facility] DaytonComment on above:Performed By: #### LIPID, CMP #### [facility] [address] [address] [address] Yanely BarrettGFR-NON AF SUDANESE>60Normal>=60The [facility] DaytonComment on above:Performed By: #### LIPID, CMP #### [facility] [address] [address] [address] Yanely DamianGlobulin (S) [Mass/Vol]4.0 g/dLNormalThCleveland Clinic Mercy HospitalComment on above:Performed By: #### LIPID, CMP #### [facility] [address] [address] [address] Yanely DamianGlucose [Mass/Vol]115 mg/dLCritically puta09-492Oyc [facility] DaytonComment on above:Performed By: #### LIPID, CMP #### [facility] [address] [address] [address] Yaenly DamianPotassium [Moles/Vol]3.5 mmol/LNormal3.4-5.0[facility] Comment on above:Performed By: #### LIPID, CMP #### [facility] [address] [address] [address] Yanely DamianProtein [Mass/Vol]8.0 g/dLNormal6.1-8.2The [facility] Comment on above:Performed By: #### LIPID, CMP #### [facility] [address] [address] [address] Yanely DamianSodium [Moles/Vol]140 mmol/JWhrshf994-081XztG[facility] Comment on above:Performed By: #### LIPID, CMP #### [facility] [address] [address] [address] Yanely DamianUrea nitrogen [Mass/Vol]16.0 mg/dLNormal9.0-20.0The [facility] DaytonComment on above:Performed By: #### LIPID, CMP #### [facility] [address] [place], [place] [address] Dr. Yanely DamianUrea nitrogen/Creatinine [Mass ratio]18.4 mg/mgNoWooster Community HospitalComment on above:Performed By: #### LIPID, CMP #### [facility] [address] [place], [place] [address] Dr. Yanely Damian Vital Signs Date TimeVital SignValuePerforming EdegutdgxSvvmiucv93-25-6721 10:18-0400Body qkafhm319.8 cmBenjamin Ball DO Work Phone: [phone] [place], [place] 6222610-16-2025 10:18-0400 Body mass index (BMI) [Ratio]42.7 kg/j2Tayanksy Ball DO Work Phone: [phone] [place], [place] 6222610-16-2025 10:18-0400 Body .17 kgBenjamin Ball DO Work Phone: [phone])[address] [place], [place] 6222610-16-2025 10:18-0400 Diastolic blood odhtykjo49 mm[Hg]Sal Ball DO Work Phone: 1(227)[address] [place], [place] 6222610-16-2025 10:18-0400 Heart rate78 /minBenjamin Ball DO Work Phone: 1([phone] [place], [place] 6222610-16-2025 10:18-0400 Respiratory rate12 /minBenjamin Ball DO Work Phone: [phone] [place], [place] 6222610-16-2025 10:18-0400 SaO2% (BldA) [Mass fraction]97 %Sal Ball DO Work Phone: [phone])[address] [place], [place] 6222610-16-2025 10:18-0400 Systolic blood byaoujgr203 mm[Hg]Sal Ball DO Work Phone: 1(540)[address] [place], [place] 6222605-13-2025 08:22-0400 Body zcuzbt475.8 cmRiccardo Giovannone DO Work Phone: [facility]05-13-2025 08:22-0400Body mass index (BMI) [Ratio]42.47 kg/j3Qnojivjfjamaica Ruiz DO Work Phone: [facility]05-13-2025 08:22-0400Body osnksc631.26 kgRaj Ruiz DO Work Phone: [facility]05-06-2025 14:10-0400Body hkapcf691.8 cmUniversity [facility]05-06-2025 14:10-0400Body mass index (BMI) [Ratio]43.9 kg/c8EvgormokjUniversity Hospitals [facility]aug[facility]05-06-2025 14:10-0400Body bhewwt157.91 kgUniversity Hospitals [facility]05-06-2025 14:10-0400Diastolic blood ewknhtvu12 mm[Hg][facility] 08-17-2024 14:10-0400Heart rate80 /[facility] 08-17-2024 14:10-0400Respiratory rate12 /[facility] 08-17-2024 14:10-0400Systolic blood jkkxakzm550 mm[Hg][facility]04-24-2025 14:09-0400Body curuos450.8 cmSam[facility]04-24-2025 14:09-0400Body mass index (BMI) [Ratio]42.47 kg/y0QforapSamaritan Medical Center04-24-2025 14:09-0400Body okfiko648.26 kgSamaritan Medical Center11-15-2024 10:56-0500Blood Pressure LocationPashaniajose cruz CORTEZ [facility] [place]11-15-2024 10:56-0500Body xvqdeokwcph56.6 [degF]Wyatt CORTEZ [facility] [place]11-15-2024 10:56-0500Diastolic blood jpgrlqal97 mm[Hg]Wyatt CORTEZ [facility] [place]11-15-2024 10:56-0500Heart rate76 /minPatrick CORTEZ [facility] [place]11-15-2024 10:56-0500Respiratory rate18 /minPatrick CORTEZ [facility] [place]11-15-2024 10:56-0500Systolic blood rxsusdcq094 mm[Hg]Wyatt CORTEZ [facility] [place]06-20-2024 09:52-0400Body fzlokw238.8 cmUniversity [facility]06-20-2024 09:52-0400Body mass index (BMI) [Ratio]47 kg/k3GidkdvjmpUniversity Hospitals [facility]aug[facility] Center06-20-2024 09:52-0400Body yatyum989.77 kgUniversity Hospitals [facility] Center06-20-2024 09:52-0400Diastolic blood jlbckrzy54 mm[Hg] [facility]06-20-2024 09:52-0400Heart rate76 /[facility]06-20-2024 09:52-0400Respiratory rate12 /[facility]06-20-2024 09:52-0400Systolic blood mm[Hg] [facility]10-30-2023 12:33-0400Blood Pressure Location Wyatt CORTEZ [facility] [place]10-30-2023 12:33-0400Diastolic blood smoycbga98 mm[Hg]Wyatt CORTEZ [facility] [place]10-30-2023 12:33-0400Heart rate73 /minPatrick CORTEZ [facility] [place]10-30-2023 12:33-0400Respiratory rate16 /minPatrick CORTEZ [facility] [place]10-30-2023 12:33-0400Systolic blood zhfoqzxa398 mm[Hg]Wyatt CORTEZ [facility] [place]05-18-2023 09:30-0400Body gcidyp283.88 cmBenjamin Ball Other [employer] Other 05-18-2023 09:30-0400Body mass index (BMI) [Ratio] 44.91 kg/r0Xkkcyyge Ball Other [employer] Other 05-18-2023 09:30-0400Body askkzp200.23 kgBenjamin Ball Other [facility]Fl[facility] Other 05-18-2023 09:30-0400Diastolic blood wthmnofg50 mm[Hg] Sal Ball Other [employer] Other 05-18-2023 09:30-0400Respiratory rate12 /minBenjamin Ball Other [employer] Other 05-18-2023 09:30-0400Systolic blood yfadomld023 mm[Hg] Sal Ball Other [employer] Other 09-09-2022 09:38-0400Blood Pressure LocationPakelley CORTEZ [facility] [place]09-09-2022 09:38-0400Diastolic blood ukainich60 mm[Hg]Wyatt CORTEZ [facility] [place]09-09-2022 09:38-0400Heart rate82 /minWyatt CORTEZ [facility] [place]09-09-2022 09:38-0400Respiratory rate16 /minWyatt CORTEZ [facility] [place]09-09-2022 09:38-0400Systolic blood bhugsigs387 mm[Hg]Wyatt YUKO [facility] [place] Encounters Encounter DateEncounter TypeCare ProviderFacilityStart: 81-71-5876xrflshxlqa Wyatt CORTEZFacility:JOEL ManleyueStart: 01-27-2025 End: 16-23-5900trsnytboigBaczhawq Ball DO Work Phone: [facility] Work Phone: Start: 01-27-2025 End: 67-82-8332Dcpxrgt encounter procedureBenviviana Ball DO-[facility] Work Phone: Start: 11-10-2024 End: 09-26-3737uvvknjklexUJYIOYTU E BALLProMedica Wendy Garza HospitalStart: 11-10-2024 End: 91-28-2580gwhtixelabBSUDVIPC E BALLProMedica [facility] Lisa Garza HospitalStart: 09-21-2024 End: 12-28-6300Ghqaelinyw and management of inpatientNASSER HAJARProMedica Leonard HospitalStart: 09-14-2024 End: 35-29-7457lqjmduylyiYTDQZSBM E BALLProMedica Leonard HospitalStart: 08-24-2024 End: 42-86-1373Tjribk outpatient new 20 minutesRiccardo Dannye DO Work Phone: [facility] Orthopaedic SurgeryComment on above:Primary osteoarthritis of right knee (Primary Dx); Primary osteoarthritis of left kneeStart: 08-24-2024 End: 42-57-0857igljbbalvqMDKUDKEH GIAS[facility]IL[facility] HOSPITALMAJOSamaritan [facility] Start: 08-17-2024 End: 67-51-7961skoscgikkbVourlpkcmMercy Health West Hospital Work Phone: Start: 08-17-2024 End: 73-07-7603Flrlyla encounter procedureAtrium Health Cleveland Physician GroupParkwood Hospital Work Phone: Start: 08-05-2024 End: 41-61-6058Mootg [facility], [facility] Department of [facility] Youngstowntart: 02-27-2024 End: 17-74-6355tomidfeeoxFtaexpx R WATERSFacility:EU BellevueStart: 02-27-2024 End: 95-50-0179Rjcdmpw encounter procedureWyatt CORTEZ [facility] [place] start: 10-02-2023 End: 50-54-5464mqzjmnfpxnKtmibuzscMercy Health West Hospital Work Phone: Start: 10-02-2023 End: 28-80-6914Ovoappw encounter procedureAtrium Health Cleveland Physician GroupParkwood Hospital Work Phone: Start: 07-28-2023 End: 21-84-9366JhdfheVvjxpz Hajar MD Work Phone: [facility] Digestive HealthcareComment on above:Tubular adenoma (Primary Dx)Start: 07-23-2023 End: 72-68-8694SxlnbnJeremy Ledezma Physicians Digestive HealthcareComment on above:Tubular adenoma (Primary Dx)Start: 02-10-2023 End: 21-94-1241Moalqoe encounter procedureWyatt CORTEZ [facility] [place] start: 08-29-2022 End: 25-88-3085trrfwbinfzAcjyuiyz Ball Other [place] [employer] Other Start: 88-58-0616Hzoiifa encounter procedureSal [facility] Medical ClinicStart: 12-21-2021 End: 17-02-6353Qtfsfic encounter procedurePakelley Crespo Pan[employer] [facility] [place] start: 12-12-2021 End: 48-15-5408nldvqblvrcIB BENJAMIN YAHIRFacility:A6Xxxjr: 11-01-2021 End: 62-68-2678aduxkinevzMK BENJAMIN YAHIRFacility:M2Tadsu: 12-28-2020 End: 41-36-7245gejwxwjlmqPD BENJAMIN BALLFacility:H1 Procedures DateProcedureProcedure DetailPerforming ClinicianStart: 60-35-3332Bkciaklokhlaqn aspir&/inj major jt/bursa w/o usRiccardo Giovannone DO Work Phone: Start: 69-57-6238Wfngesfwzfgdve aspir&/inj major jt/bursa w/o usRiccardo Giovannone DO Work Phone: Start: 18-48-3809ZCU screeningDR SAL SINCLAIRComment on above:Performed By: #### PSAD #### [facility] [address] [place] [address] Dr. Yanely DamianStart: 18-38-6748Yoefoslghzz biopsy of prostate using ultrasound guidanceVeriTainer Start: 42-07-9946Gyqprtijqnu biopsy of prostate using ultrasound guidanceVeriTainer Start: 48-50-3170Tvmnkozcgaq of kneeVeriTainer Start: 99-23-4751Jfoarnekkhb of kneeVeriTainer Plan of Treatment DateCare ActivityDetailAuthorStart: 69-47-3513Ioeun BMI ScreeningAdult BMI ScreeningProGood Samaritan Hospitalca Health SystemStart: 71-23-8317Meptoen ScreeningTobacco ScreeningProGood Samaritan Hospitalca Health SystemStart: 09-06-1600Suwsfldee vaccinationInfluenza VaccineProMedica Health SystemStart: 09-21-2024 End: 77-57-2949Quzgyptjv to same day surgery srpdpo4809/21/2024 3:00 PM EDT - 09/21/2024 3:30 PM EDT Surgery [facility] [address] [facility] [place] [phone] Venkatesh Malone MD [address] [facility] [address] COLONOSCOPY DIAGNOSTIC / SCREENINGMedical Center of the Rockies - EndoscopyComment on above:COLONOSCOPY DIAGNOSTIC / SCREENINGStart: 09-21-2024 End: 64-27-4830QksmohbitxnWFOBMXPLRGZ DIAGNOSTIC / SCREENING Tubular adenoma D12.6 09/21/2024 3:00 PM EDMercy Health Willard Hospital SystemStart: 32-51-6415Ckggjlolxr hospital visit by oflgqmvht11/10/2025 3:00 PM EDT Hospital Encounter [facility] [address] [facility] [place] [phone] Venkatesh Malone MD [address] [facility] [place] [address] [facility] Start: 72-21-0667Rqhxe BMI ScreeningAdult BMI ScreeningFirelands [facility] System Start: 73-69-5226Amohnjz ScreeningTobacco ScreeningFirelands Regional Medical [facility] SystemStart: 09-14-2024 End: 01-95-3683Dkjiktj encounter jyalxdnmm14/03/2025 1:30 PM EDT Appointment [facility] Pre and Post OP [address] [facility] [place] [phone] [facility] Pre and Post OPStart: 08-24-2024 End: 72-49-7403Zcmjclf encounter ocbnmxzej79/13/2025 8:30 AM EDT Office Visit [facility] [address] [place] [address] [place] [address] Raj Ruiz DO [address] [place] [address] [place] [address] [facility] Start: 64-08-8916UADLC-19 Vaccine ( season)COVID-19 Vaccine ( season)[facility] SystemStart: 05-40-8422Crshh BMI ScreeningAdult BMI ScreeningProSt. Charles Hospital SystemStart: 91-68-3950QHTBJ-19 Vaccine ( season)COVID-19 Vaccine ()[facility] SystemStart: 12-21-4761Sodaeaxcu vaccinationInfluenza VaccineFirelands Regional [facility] SystemStart: 06-63-8943Vgsnhnu ScreeningTobacco ScreeningProSt. Charles Hospital SystemStart: 09-16-2023 End: 45-25-7252Oltprijtw to same day surgery obpbbe3409/16/2023 8:30 AM EDT - 09/16/2023 9:00 AM EDT Surgery [facility] [address] [place] [address], [address] [place] [phone] Venkatesh Malone MD [address] [place] [address], [address] [place] [address] COLONOSCOPY DIAGNOSTIC / SCREENING [71219(CPT )][facility] - EndoscopyComment on above:COLONOSCOPY DIAGNOSTIC / SCREENING [01245 (CPT )] Start: 09-16-2023 End: 94-03-9488Weikkmbnjmh flx dx w/collj spec when pfrmdCOLONOSCOPY DIAGNOSTIC / SCREENING Tubular adenoma 09/16/2023 8:30 AM EDTWELLNESS ENDOSCOPYStart: 51-15-6704Xirqbobfxq hospital visit by igihllllu30/04/2024 8:30 AM EDT Hospital Encounter [facility] [address] [place] [address], [address] [place] [address] Venkatesh Malone MD [address] [place] [address], [address] [place] [id number] [facility] EndoscopyStart: 87-96-8879GGLXD-19 Vaccine ( season)COVID-19 Vaccine ( season)[facility] SystemStart: 10-21-2022 Administration of varicella zoster vaccineZoster (Shingles) Vaccine (2 of 2) [facility] SystemStart: 20-16-2536Sfgc Risk ScreeningFall Risk Screening [facility] SystemStart: 14-43-8971QPdE,Tdap and Td Vaccines (1 - Tdap) DTaP,Tdap and Td Vaccines (1 - Tdap)[facility] SystemStart: 1969 Adult BMI Follow Up PlanAdult BMI Follow Up PlanFirelands Regional Medical Center [facility] Campus SystemStart: 32-01-6115Rwotocom foot examinationDiabetic Foot ExamFirelands Regional [facility] System Start: 10-90-9213Defgeuyjhz ScreeningDepression ScreeningFirelands Regional [facility] System Start: 18-32-8545Mcgecomf screeningDiabetic Ophthalmology ExamFirelands Regional Medical [facility] SystemStart: 02-05-1952Medicare Annual Wellness VisitMedicare Annual Wellness VisitAvita Health System [facility] duuin [facility] End: 68-27-2351SwyhrbgfpabEheqkxdxqpx GI Routine Tubular adenoma 1 Occurrences starting 07/23/2023 until 07/22/2024[employer] Work Phone: Comment on above:1 Occurrences starting 07/23/2023 until 07/22/2024omprehensive metabolic 2000 panel - Serum or PlasmaUniversity Hospitals Geauga Medical CenterMicroalbumin [Mass/volume] in UrineLakewood Ranch Medical Center Immunizations Immunization DateImmunizationNotesCare AdwvucacTbaixnvb74-81-6460nbngyqdjw, high dose seasonal, preservative-freeBenjamin Ball DO Work Phone: [facility]11-01-2024influenza virus vaccine, unspecified formulationRiccardo Giovannone DO Work Phone: [facility] HospitalOrangeHRMWnoixn19-15-1589zebbobwik virus vaccine, unspecified formulationBrokarina Jose CMAFirelands Regional Medical Center [facility] Campus Tqryks85-28-0061 zoster vaccine, unspecified formulationTherantoinette Cruz [facility] System 84-13-9089glcemrsmj virus vaccine, unspecified formulationThereslyndsay Cruz RN [facility] Dkubrj14-96-7940WIRGN-54 mRNA, Comirnathaja (Pfizer)[facility]03-05-2021SARS-CoV-2 (COVID-19) Ad26 vaccine, recombinant Wyatt CORTEZ [facility] [place]02-12-2021SARS-CoV-2 (COVID-19) Ad26 vaccine, recombinantWyatt CORTEZ [facility] [place]11-16-2020pneumococcal polysaccharide vaccine, 23 valentBenjamin Ball Other [facility] [place] Payers DatePayer CategoryPayerPolicy [id number] Care Other (unspecified)[facility] Member Subscriber Plan / Payer (Effective 2020-Present) Name: Elvis Santos Relation to Subscriber: Self Name: Elvis Santos Payer ID: [id number] (NAIC) Group ID: Not on file Type: Not on file Address: [facility] [address] [place] [id number] Health InsuranceK[facility] AARP SUPPLEMENT [id number] 2020-Present [phone] [facility] [address] [place] [address] [id number] [id number] [id number] [id number] [id number] 1960Unknown [id number] 2.16.840.1.231307.3.57[id number] 2.16840.1.774290.3.57[id number] 2.840.1.057196.3.57[id number] 2.840.1.876286.3.57[id number] 2.840.1.495655.3.57[id number] 2.16840.1.117531.3.57[id number] 2.16840.1.334056.3.57[id number] 2.840.1.325350.3.57[id number] 2.16840.1.905660.3.57[id number] Social History DateTypeDetailFacilityStart: 12-21-2021 End: 07-38-9717Mmiriie smoking statusNever smoked tobacco (finding)[facility] Centervilletart: 11-18-2022 End: 48-23-2917Hgw Assigned At [facility] [place] Tobacco smoking statusNeverExecutive [facility]rology of [facility] Hospitaltart: 36-13-2282Ceq Assigned At [facility]: 66-32-0981Yybrfsw use and exposureSmokeless tobacco non-userAvita Health System [facility] Health SystemStart: 11-18-2022 End: 04-92-8368Nozvysyya beverage intakeCurrent drinker of alcohol (finding) [facility] SystemStart: 11-18-2022 End: 48-56-3832Czzdspq of Social functionAvita Health System Galion Hospital Health SystemStart: 27-44-2586Hhgejvq Tpuoraz4h weekFirelands [facility] SystemStart: 42-99-6521Tci assigned at birthNot on fileFirelands Regional Medical Center [facility] SystemStart: 78-30-3426Bmkoblj Comment2-3 drinks a weekFirelands Regional Medical Center [facility] SystemStart: 11-10-2020 End: 37-88-0783XtkHwbi (finding)[facility] SystemTobacco smoking status NHISUnknown if ever smokedBarberton Citizens Hospital Work Phone: Goals DatePatient GoalDesired Activity/StatePersonal health goal Functional Status CtbySnmmycwltaXrxuyqOvgkenya36-89-6100Nmfosfjkgz StatusN/AExecutive [facility] of [facility] [place]10-30-2023Functional StatusN/A[facility] [place]09-09-2022Functional StatusN/A [facility] Clinical Notes 12-21-2021 to 08-24-2024 Note Date & KidkOoniMgyemrsk32-33-6904 History of Present illness Narrative* Raj Ruiz, [...] states that he was seen in the [facility] on 04/08/24 where x-rays were [...] mg total) by mouth in the morning. abewqbqy-ismy-HQ-calcium &mins (THERAGRAN-M) 9 mg iron-400 mcg tablet [...] Diagnosis Date Diabetes mellitus type 2, controlled ([facility]) Hyperlipidemia Hypertension Ht 177.8 cm [...] mg total) by mouth in the morning. wutlrcuh-eyjr-NR-calcium &mins 9 mg iron-400 mcg tablet Commonly known as: THERAGRAN-M Take 1 tablet by mouth in the morning. OZEMPIC 1 mg/dose (4 mg/3 mL) pen injector Generic drug: semaglutide 1 MG (0.75 ML) SUBCUTANEOUSLY EVERY WEEK FOR 28 DAYS FOR 4 WEEKS polyethylene glycol 236-22.74-6.74 -5.86 gram solution Commonly known as: GoLYTELY Please follow office colonoscopy instructions. MELI OSEGUERA CMA documented in this encounterUniversity [facility]als [facility]04-24-[facility] History of Present illness Narrative* Amber Jose CMA - 08/05/2024 2:07 PM EDT Patients chart updated and reviewed documented in this [facility]11-15-2024 Hospital Discharge instructions Patient Education 02/27/2024 [...] Follow these instructions at home: Medicines Take vknl-oza-nyxoyfj and prescription medicines only as told by [...] provider. Document Revised: 06/27/2021 Document Reviewed: 06/27/2021 DISKOVRe Patient Education 2023 PLDT. Follow Up Care 02/10/2023 13:18:38 With:YUKO MYERS, Wyatt Crespo, URL Address: [facility] [address] , [place] [address]- When:Within 1 Year(s) Comments:w/PSA and T Level [facility] [place] 11-15-2024 NotePatient Education Urology Erectile Dysfunction Erectile [...] these instructions at home: Medicines ??? Take ccfj-wks-tvjeqov and prescription medicines only as told by [...] ??? Do not u (more content not included)...[facility]04-10-2024 Miscellaneous Notes* Telephone Encounter - Lubna Mayo CMA - 07/23/2023 10:34 AM EDT 1st Attempt Our office received a colonoscopy request from patient. 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 No answer. Left message. Please contact our office to update chart and Insurance [phone] opt 1 FYI Provider: Dr Malone - [...] Instructions mailed to pt//07/28/2023/cac documented in this encounterAvita Health System [facility] ProfigKsdftx27-22-3952 Telephone encounter Note* Telephone Encounter - Lubna Mayo CMA - 07/23/2023 10:34 AM EDT 1st Attempt Our office received a colonoscopy request from patient. 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 No answer. Left message. Please contact our office to update chart and Insurance [phone] opt 1 FYI Provider: Dr Malone - Last colon: 11/18/2022 - Dx: Sessile serrated Tubulovillous Adenoma Tubular Adenoma - Recall: 6 months - ASA 2 / MAYA / Mod Sed Thank You [facility] ProfigPaltpe51-04-7173 Telephone encounter Note* Telephone Encounter - Stephany Cruz RN - 07/23/2023 10:34 AM EDT Patient called, chart updated Please schedule BMI 46 weight 325 pounds Please schedule with Dr Malone at [facility] ASA [address] Mod [address] [facility] [id number] Telephone encounter Note* Telephone Encounter - Annajean Steinerllo - 07/23/2023 10:34 AM EDT Cole/Jesus Albertor 09/16/2023 8:30a ASA2, MOD SED, MAYA Golytely ordered. Instructions mailed to pt//07/28/2023/[facility] HospitalKelly [facility] [id number] Hospital Discharge instructions Patient Education 02/10/2023 13:09:36 [...] Follow these instructions at home: Medicines Take nipy-koi-hxdlulb and prescription medicines only as told by [...] provider. Document Revised: 06/27/2021 Document Reviewed: 06/27/2021 DISKOVRe Patient Education 2022 PLDT. Follow Up Care 12/21/2021 10:15:41 With:YUKO MYERS, Wyatt Crespo, URL Address: [facility] [address], [place] [phone] When: Unknown Comments:1 yr w/ PSA and T levels [facility] 05-18-2023 Evaluation note* Encounter Date Diagnosis [...] (ICD-10 - Z12.11)Referral for colonoscopy: Dr. Josue Gamestaq Other 09-09-2022 Hospital Discharge instructions Patient Education [...] urethra. Follow these instructions at home: Take ggzm-ann-orbgzqs and prescription medicines only as told by [...] 03/31/2006 Document Revised: 02/23/2019 Document Reviewed: 05/05/2017 DISKOVRe Patient Education [employer]. Follow Up Care 12/11/2020 09:35:05 With:YUKO MYERS, Wyatt Crespo, URL Address: [address] [place] [address]- When: Unknown [facility] evaluation + Plan note Future Appointments Appointment Date:12/27/2022 09:30:00 AM Scheduled Provider:Wyatt CORTEZ MD Location:[facility] Appointment Type:URO Office Visit Diagnostic Tests Pending * PSA Total 10/12/22 * Testosterone Level Total 10/12/22 [facility] evaluation + Plan note Future Appointments Appointment Date:02/13/2024 10:15:00 AM Scheduled Provider:Wyatt CORTEZ MD Location:[facility] Appointment Type:URO Office Visit Diagnostic Tests Pending * PSA Total 02/10/23 * Testosterone Level Total 02/10/23 [facility] evaluation + Plan note Future Appointments Appointment Date:03/04/2025 09:45:00 AM Scheduled Provider:Wyatt CORTEZ MD Location:[facility] Appointment Type:URO Office Visit Diagnostic Tests Pending * Testosterone Level Total 02/27/24 * PSA Total 02/27/24 [facility] evalykrjvt note* Diagnosis Onset Date Resolution Status Chronic venous insufficiency of lower ex tremity acuteHypercholesterolemiaacuteHypertensionacuteType 2 diabetes mellitus with hyperglycemiaacuteMedicare annual wellness visit, subsequentnoneactiveScreening PSA (prostate specific antigen)noneactive [facility] Work Phone: Evaluation note* Diagnosis Tubular adenoma- Primary Benign neoplasm of unspecified site documented in this encounter [facility] SystemEvaluation note* Diagnosis Tubular adenoma- Primary Benign neoplasm of unspecified site documented in this encounter [facility]* Diagnosis Onset Date Resolution Status Admit Date Chronic venous insufficiency of lower ex tremity acuteMay 2024 1:57pmControlled type 2 diabetes mellitus with diabetic polyneuropathyacuteMay 2024 1:57pmHypercholesterolemiaacuteMay 2024 1:57pmHypertensionacuteMay 2024 1:57pmObesityacuteMay 2024 1:57pmType 2 diabetes mellitus with hyperglycemiaacuteMay 2024 1:57pm [facility] Work Phone: Evaluation note* Diagnosis Primary osteoarthritis of right knee- Primary Primary osteoarthritis of left knee documented in this encounter [facility]* Diagnosis Onset Date Resolution Status Admit Date Chronic venous insufficiency of lower ex tremity acuteOctober 2024 10:07amControlled type 2 diabetes mellitus with diabetic polyneuropathyacuteOctober 2024 10:07amElevated coronary artery calcium scoreacuteOctober 2024 10:07amHypercholesterolemiaacuteOctober 2024 10:07amHypertensionacuteOctober 2024 10:07amObesityacuteOctober 2024 10:07amType 2 diabetes mellitus with hyperglycemiaacuteOctober 2024 10:07amMedicst. francis [facility] annual wellness visit, subsequentnoneactiveOctober 2024 10:07amScreening PSA (prostate specific antigen)noneactiveOctober 2024 10:07am [facility] Work Phone: History general Narrative - Reported* Type Description Date Medical History Blurred vision, bilateral Medical HistoryUnsteadyMedical HistoryAcute nonintractable headache, unspecified headache typeMedical HistoryPure hypercholesterolemiaMedical History Intertriginous candidiasisMedical HistoryType 2 diabetes mellitus with diabetic polyneuropathy, without long-term current use of insulinMedical History Controlled type 2 diabetes mellitus with hyperglycemia, without long-term current use of insulinMedical HistoryEssential (primary) hypertensionMedical HistoryPoison ivySurgical UhdgljcEMPUOLRXKTL4251Gkeihtui HistoryTRUS/Bx x2 Hospitalization HistorySEE SURGICAL HX Gamestaq Other Hospital course Narrative No data available for this section [facility] InstructionsNot on filedocumented in this encounter [facility] SystemInstructionsNot on filedocumented in this encounter [facility] SystemInstructionsNot on filedocumented in this encounter [facility] SystemInstructionsNot on filedocumented in this encounter [facility] SystemProgress note No data available for this section [facility] reason for referral (narrative)No reason for referral information availableBarberton Citizens Hospital Work Phone: Summary Purpose Family History Relationship [...] Tubular adenoma Procedures [place] [address] [place] [address], [address] [id number] Referral IDStatusReasonStart DateExpiration DateVisits RequestedVisits [id number] Revieweferral IDStatusReasonStart DateExpiration DateVisits RequestedVisits [id number] Review Additional Source Comments (unrecognized sect ion and content) No Status Records FoundNo Status Records FoundNo Status Records FoundNo Status Records FoundNo Status Records Found INFORMATION SOURCE (unrecogn ized section and content) DATE CREATED AUTHOR 12/13/2021 [facility] DATE CREATED AUTHOR AUTHOR'S ORGANIZ ATION 08/25/2024 [facility] DATE CREATED AUTHOR AUTHOR'S ORGANIZ ATION 10/03/2024 [facility] DATE CREATED AUTHOR AUTHOR'S ORGANIZ ATION 11/27/2024 [facility] DATE CREATED AUTHOR AUTHOR'S ORGANIZ ATION 12/27/2024 [facility] Care Team (unrecognized sect ion and content) Team Status: Active Member Role Status Dates Sal Sinclair DO Primary Care Provider Active Team Status: Inactive Member Role Status Dates Sal Sinclair DO Primary Care Provide r, Attending Provider Active Start: October 02, 2023 End: October 02, 2023Team MemberRelationshipSpecialtyStart DateEnd Date Sal Sinclair DO [address] [place] [place] [address] PCP - [facility]11/10/20Team MemberRelationshipSpecialtyStart Date End Date Sal Sinclair DO [address] [place] [address] PCP - [facility]11/10/20Team MemberRelationshipSpecialtyStart Date End Date Sal Sinclair DO [address] [place] [address] PCP - [facility]11/10/20Team MemberRelationshipSpecialtyStart Date End Date Sal Sinclair DO [address] [place] [address] PCP - [facility]08/05/24 Team Status: Inactive Member Role Status Dates Sal Sinclair DO Primary Care Provide r, Attending Provider Active Start: August 17, 2024 End: August 17, 2024Team MemberRelationshipSpecialtyStart DateEnd Date Sal Sinclair DO [address] [id number] PCP - [facility]08/05/24 Team Status: Inactive Member Role Status Dates Sal Sinclair DO Primary Care Provider Active Start: January 27, 2025 End: January 27wojciech Sinclair DOAttalfie ProviderActiveStart: January 27, 2025 End: January 27, 2025 REASON FOR VISIT (unrecogniz ed section and content) ReasonOnset DateCommentsMed Yzkpaw4807/28/2023easonCommentsPain Goals (unrecognized section and content) Goals may [...] BE BASED ON THE PRIMARY CLINICAL RECORDS. [facility] [employer] [facility]. provides no warranty or guarantee of the accuracy or completeness of information in this document.
[2025-03-03 15:07] LABS: Microalbum Creatinine Ratio Ur 23.4 mg/g (0.0-29.9)
[2025-03-03 15:08] LABS: Anion Gap 13.0; Blood Urea Nitrogen 13.0 mg/dL (7.0-18.0); Calcium 9.1 mg/dL (8.5-10.1); Carbon Dioxide 30.5 mmol/L (21.0-32.0); Chloride 103 mmol/L (98-107); Estimated GFR (African America >60 (>=60 mL/min/1.73m^2); Estimated GFR (Non-African Ame >60 (>=60 mL/min/1.73m^2); Glucose 102 mg/dL (74-106); Potassium 3.5 mmol/L (3.5-5.1); Sodium 143 mmol/L (136-145)
== END 2025-03-03 14:27 | disposition home or self-care (01) ==
LOC: LAB 14:31
PROVIDERS: PCP Internal Medicine; Visit Provider Internal Medicine
DX: E11.65 Type 2 diabetes mellitus with hyperglycemia (principal); I10 Essential (primary) hypertension; E29.1 Testicular hypofunction; N40.1 Benign prostatic hyperplasia with lower urinary tract symptoms; N52.9 Male erectile dysfunction, unspecified
CPT/HCPCS: 36415; 80048; 82043; 82570; 83036; 84153; 84403